=== PATIENT | female | born 1980 | race Caucasian/White ===

== ENCOUNTER 2017-03-17 10:20 | Emergency (ER) | payer MEDICARE, MEDICAID, SELFPAY ==
[2017-03-17 10:22] VITALS: BP 160/119; PULSE 79; RESP 16; TEMP 36.8; O2SAT 97; BMI 52.6
--- NOTE | 2017-03-17 10:41 | ED.DCSUM_ITS ---
- ER Visit Summary Date of Service: 03/17/17 Chief Complaint: Upper respiratory infection History of Present Illness: The patient is a 36 F with approximately 4-5 days of rhinorrhea, dry cough, and sore throat. No fever, chills, body aches, or neck pain. No rash. She went to the urgent care on the first day of symptoms and was put on amoxicillin for sinus infection and states that her symptoms have not resolved so she wanted to be rechecked. Physical Examination: Vitals are within normal limits except for mildly elevated blood pressure. She has swollen turbinates bilaterally. Clear secretions of both nares. No sinus tenderness, crepitus, or facial swelling/ redness. Throat looks normal. TMs look normal. Neck is supple. No lymphadenopathy. No meningeal findings. Lungs are clear bilaterally with good air movement. No rash. No petechiae. Test Results: None performed Emergency Department Course and Treatment: I suspect she has a viral cause for her illness. She has no body aches or myalgias and she is outside of the window to benefit from Tamiflu anyway so I do not feel confirmatory influenza testing is indicated. She was instructed on supportive care treatment such as anti-inflammatory medication, rest, and plenty of fluids. Her lungs are clear and her pulse ox is 100% so I do not feel she needs a chest x-ray. She will discontinue the amoxicillin as I suspect she does not need it and it could be making her worse. She will follow-up closely with her doctor and return if worse. Treatment Plan: Fluids, rest, follow-up Disposition: Home in stable condition Impression: Initial encounter upper respiratory infection, suspect viral cause This note was generated with [employer] dictation software. It may contain incorrect words, spelling, and punctuation that were not noted in review of the chart prior to signing ED Disposition - Plan for ED Patient: Chief Complaint: Cold Sx Instructions: ED Upper Resp Infec No Abx Tx Referrals: Brodie Fernandes MD [Primary Care Provider] -
[2017-03-17 11:04] VITALS: BP 162/85; PULSE 72; RESP 16; O2SAT 98
== END 2017-03-17 11:04 | disposition home or self-care (01) ==
PROVIDERS: Emergency Provider Emergency Medicine; Family Provider Internal Medicine; PCP Internal Medicine
DX: J06.9 Acute upper respiratory infection, unspecified (principal); E03.9 Hypothyroidism, unspecified; F32.9 Major depressive disorder, single episode, unspecified; F41.9 Anxiety disorder, unspecified; Z79.899 Other long term (current) drug therapy
CPT/HCPCS: 99282

== ENCOUNTER → 2017-03-28 13:41 | Outpatient (CLI) | payer MEDICARE, MEDICAID, SELFPAY ==
--- NOTE | 2017-03-28 13:43 | RAD_ITS ---
STUDY: X-RAY - RIGHT FOOT CLINICAL: Dropped a vase on the top of the foot. TECHNIQUE: 3 view(s) of the foot. COMPARISON: None. FINDINGS: There are very small posterior and plantar calcaneal enthesophytes. Normal visualized subtalar, talonavicular, calcaneocuboid, tarsal and tarsometatarsal articulations. Normal metatarsi. Normal metatarsophalangeal joint of the great toe. Normal tibial and fibular sesamoid bones. Normal interphalangeal joint of the great toe. Normal phalanges of the great toe. Normal second through fifth metatarsophalangeal joints. Normal interphalangeal joints and phalanges of the lesser toes. There are small ossicles adjacent to the medial and lateral malleoli. There is a small accessory navicular. RAD/Foot min 3 Views IMPRESSION: No demonstrated fracture. Electronically Signed: Raghavendra Camops MD at 9:10 EST Tel , Service support ,
== END ==
PROVIDERS: Family Provider Internal Medicine; PCP Internal Medicine; Visit Provider Physician Assistant Medical
DX: S90.31XA Contusion of right foot, initial encounter (principal); W22.8XXA Striking against or struck by other objects, initial encounter
CPT/HCPCS: 73630

== ENCOUNTER 2017-08-24 10:56 | Emergency (ER) | payer OTHER, SELFPAY ==
[2017-08-24 10:58] VITALS: BP 158/108; PULSE 83; RESP 16; TEMP 37; O2SAT 98; BMI 48.0
--- NOTE | 2017-08-24 11:26 | RAD_ITS ---
STUDY: X-RAY - RIGHT TIBIA AND FIBULA REASON FOR EXAM: Right leg pain, fall. TECHNIQUE: 2 view(s) of the tibia and fibula were obtained. COMPARISON: None. FINDINGS: Normal visualized tibia. Normal visualized fibula. There is mild anterior soft tissue swelling of the proximal lower leg. RAD/Tibia & Fibula 2 Views IMPRESSION: Mild soft tissue swelling. No demonstrated fracture. Electronically Signed: Raghavendra Campos MD at 12:43 EDT Tel , Service support ,
--- NOTE | 2017-08-24 11:29 | ED.VISSUMM ---
- ER Visit Summary Date of Service: 08/24/17 Chief Complaint: Then fell at work complaint right knee and lower leg pain History of Present Illness: The patient is a 37 F was at work today at the [employer] tripped over something and fell landing on her right knee and complaining of right knee and lower leg pain. Has had a prior knee arthroscopy. Has had prior ankle surgery for fractured ankle. Denies other injuries. Did not hit her head. No LOC. She is not on blood thinners. This is going to be Worker's Comp. Physical Examination: Vital signs stable and afebrile. H EENT exam is atraumatic. Pupils round reactive light. No signs of trauma to her face skull. C-spine nontender normal range of motion her neck. Trachea midline. Lungs clear to auscultation bilaterally. Heart regular rhythm no murmur. Abdomen soft nontender nondistended no giving or masses. She is moving all 4 extremities. The neurovascular intact. Her right anterior knee has an abrasion to knee. No gross bony deformity. Right hip nontender. She some abrasions to the right lower leg. There is no deformity or significant tenderness of the right ankle. Dorsi plantar flexion is intact. DP pulses intact. Right foot is nontender neurovascular intact. Left lower extremity unremarkable. Upper extremities unremarkable normal range of motion noted only. Back exam nontender. Neurologic exam normal. GCS of 15. Test Results: Three-view x-ray of the right knee shows no acute abnormality. Chronic calcification in the posterior tibia. Two-view x-ray of the right tib-fib shows no acute abnormality. Both were read by the radiologist and reviewed by me. Emergency Department Course and Treatment: Patient will be obtained. Treatment Plan: Patient doing well repeat exam at 1254. Disposition: Discharge Impression: Acute mechanical fall Right knee contusion and abrasion Worker's comp injury This note was generated with [employer] dictation software. It may contain incorrect words, spelling, and punctuation that were not noted in review of the chart prior to signing ED Disposition - Plan for ED Patient: Chief Complaint: Fall Referrals: Brodie Fernandes MD [Primary Care Provider] -
--- NOTE | 2017-08-24 12:00 | RAD_ITS ---
STUDY: X-RAY - RIGHT KNEE REASON FOR EXAM: Right knee pain, fall. TECHNIQUE: 3 view(s) of the knee. COMPARISON: None. FINDINGS: Normal visualized distal femur. Normal visualized proximal tibia and fibula. Normal proximal tibiofibular articulation. Normal medial femorotibial compartment. Normal lateral femorotibial compartment. Normal patellofemoral articulation. There is a posterior intra-articular body. There is mild anterior soft tissue swelling. RAD/Knee 3 Views IMPRESSION: Posterior intra-articular body. Mild anterior soft tissue swelling. No demonstrated fracture. Electronically Signed: Raghavendra Campos MD at 12:44 EDT Tel , Service support ,
--- NOTE | 2017-08-24 12:55 | ED.DEP ---
ED Disposition - Plan for ED Patient: Disposition: Home or Assisted Living Chief Complaint: Fall Instructions: ED Mechanical Fall, ED Contusion Lower Ext Referrals: [facility] [GROUP OF PHYSICIANS] - 1 Week if not improving Additional Instructions: Ice to knee. Motrin for pain and swelling. Increase activity as tolerated. No heavy lifting for the next 3 days. Follow-up with [facility] if not improving.
[2017-08-24 13:21] VITALS: BP 102/74; PULSE 79; RESP 18
== END 2017-08-24 13:22 | disposition home or self-care (01) ==
PROVIDERS: Emergency Provider Emergency Medicine; Family Provider Internal Medicine; PCP Internal Medicine
DX: S80.01XA Contusion of right knee, initial encounter (principal); S80.211A Abrasion, right knee, initial encounter; W18.09XA Striking against other object with subsequent fall, initial encounter; Y93.9 Activity, unspecified; Y92.89 Other specified places as the place of occurrence of the external cause; Y99.0 Civilian activity done for income or pay; E03.9 Hypothyroidism, unspecified; F32.9 Major depressive disorder, single episode, unspecified; F41.9 Anxiety disorder, unspecified; Z79.899 Other long term (current) drug therapy
CPT/HCPCS: 73562; 73590; 99282

== ENCOUNTER → 2017-10-01 06:28 | Outpatient (CLI) | payer OTHER, SELFPAY | PROVIDERS: Family Provider Internal Medicine; PCP Internal Medicine; Visit Provider Physician Assistant | DX: S80.01XA Contusion of right knee, initial encounter (principal); W19.XXXA Unspecified fall, initial encounter; Y99.0 Civilian activity done for income or pay | CPT/HCPCS: 73721 ==

== ENCOUNTER 2018-06-05 09:15 | Emergency (ER) | payer MEDICARE, MEDICAID, SELFPAY ==
[2018-05-27 08:33] VITALS: BMI 52.6
[2018-06-05 09:17] VITALS: BP 141/77; PULSE 88; RESP 17; TEMP 36.6; O2SAT 100; BMI 53.4
--- NOTE | 2018-06-05 10:02 | ED.VISSUMM ---
- ER Visit Summary Date of Service: 06/05/18 Chief Complaint: Nausea and vomiting History of Present Illness: The patient is a 38 F currently 6 weeks she is AB 0. Also has a history of hypothyroidism, anemia and anxiety and depression. Patient states she is had nausea and vomiting for approximately a week. No dysuria. No abdominal pain. No vaginal bleeding. No fever. Physical Examination: Well-appearing middle-age female. Vital signs are stable and afebrile. She does not look septic or toxic. She is in no distress. HEENT exam is unremarkable. Neck nontender no lymphadenopathy. Lungs clear to auscultation bilaterally. Heart regular rate and rhythm no murmur rate about 85. Abdomen morbidly obese but soft. Nontender normal bowel sounds no peritoneal signs. Patient is moving all 4 extremities. They are neurovascularly intact. Calves are nontender without edema. Neurologically she is awake alert focal motor deficits. Test Results: Patient has a history of anemia. Her H&H shows hemoglobin 10.6 which is actually better than her baseline. Emergency Department Course and Treatment: Treated with IV fluids and IV Zofran. Patient has a med port and it was accessed for this. Patient also received Phenergan for nausea which is improving. She was able to hold down some p.o. fluids. On repeat exams at noon and 1315 p.m. she is doing well. She understands there is nothing to be admitted to the hospital for at this time. She needs to increase her fluid intake. And advance her diet slowly. Treatment Plan: Home prescription of Zofran. Follow-up with her TILE MOLDER HAND. Disposition: Discharge Impression: Acute nausea and vomiting First trimester History of chronic anemia This note was generated with [employer] dictation software. It may contain incorrect words, spelling, and punctuation that were not noted in review of the chart prior to signing ED Disposition - Plan for ED Patient: Referrals: Brodie Fernandes MD [Primary Care Provider] -
--- NOTE | 2018-06-05 10:05 | ED.DCSUM_ITS ---
- ER Visit Summary Date of Service: 06/05/18 Chief Complaint: Nausea and vomiting History of Present Illness: The patient is a 38 F currently 6 weeks she is AB 0. Also has a history of hypothyroidism, anemia and anxiety and depression. Patient states she is had nausea and vomiting for approximately a week. No dysuria. No abdominal pain. No vaginal bleeding. No fever. Physical Examination: Well-appearing middle-age female. Vital signs are stable and afebrile. She does not look septic or toxic. She is in no distress. HEENT exam is unremarkable. Neck nontender no lymphadenopathy. Lungs clear to auscultation bilaterally. Heart regular rate and rhythm no murmur rate about 85. Abdomen morbidly obese but soft. Nontender normal bowel sounds no peritoneal signs. Patient is moving all 4 extremities. They are neurovascularly intact. Calves are nontender without edema. Neurologically she is awake alert focal motor deficits. Test Results: Patient has a history of anemia. Her H&H shows hemoglobin 10.6 which is actually better than her baseline. Emergency Department Course and Treatment: Treated with IV fluids and IV Zofran. Patient has a med port and it was accessed for this. Patient also received Phenergan for nausea which is improving. She was able to hold down some p.o. fluids. On repeat exams at noon and 1315 p.m. she is doing well. She understands there is nothing to be admitted to the hospital for at this time. She needs to increase her fluid intake. And advance her diet slowly. Treatment Plan: Home prescription of Zofran. Follow-up with her COMPANY TRUCK DRIVER. Disposition: Discharge Impression: Acute nausea and vomiting First trimester History of chronic anemia This note was generated with [employer] dictation software. It may contain incorrect words, spelling, and punctuation that were not noted in review of the chart prior to signing ED Disposition - Plan for ED Patient: Referrals: Brodie Fernandes MD [Primary Care Provider] -
[2018-06-05] MEDS: 0.9% Normal Saline 1,000 ML 999 ML IV (10:31)
[2018-06-05] MEDS: Ondansetron 4 MG/2 ML Vial IV (10:31)
[2018-06-05 11:23] VITALS: BP 127/72; PULSE 74; RESP 18; O2SAT 99
--- NOTE | 2018-06-05 11:43 | NURSING ---
NEED A PURPLE, CLOTTED
[2018-06-05 12:15] LABS: Hematocrit 32.4 % (37-47); Hemoglobin 10.6 g/dl (12.0-15.0)
[2018-06-05] MEDS: proMETHazine 25 MG/ML Syringe 12.5 MG IV (12:30)
[2018-06-05 13:10] VITALS: BP 139/70; PULSE 81; RESP 16; O2SAT 96
--- NOTE | 2018-06-05 13:16 | ED.DEP ---
ED Disposition - Plan for ED Patient: Disposition: Home or Assisted Living Instructions: ED Dizziness [facility] Referrals: Adwoa Hopper MD [STAFF PHYSICIAN] - 3-5 Days Additional Instructions: Use your Zofran for nausea. Plenty of fluids and rest. Increase her diet slowly. Follow-up with your MANUFACTURING DEVELOPMENT ENGINEER.
--- NOTE | 2018-06-05 13:21 | DCINST.ED_ITS ---
ED Disposition - Plan for ED Patient: Disposition: Home or Assisted Living Instructions: ED Dizziness [facility] Referrals: Adwoa Hopper MD [STAFF PHYSICIAN] - 3-5 Days Additional Instructions: Use your Zofran for nausea. Plenty of fluids and rest. Increase her diet slowly. Follow-up with your HOSPITAL ADMISSIONS OFFICER.
== END 2018-06-05 13:48 | disposition home or self-care (01) ==
PROVIDERS: Emergency Provider Emergency Medicine; Family Provider Internal Medicine; PCP Internal Medicine
DX: O21.9 Vomiting of pregnancy, unspecified (principal); O99.011 Anemia complicating pregnancy, first trimester; D64.9 Anemia, unspecified; O99.341 Other mental disorders complicating pregnancy, first trimester; F32.9 Major depressive disorder, single episode, unspecified; F41.9 Anxiety disorder, unspecified; Z3A.01 Less than 8 weeks gestation of pregnancy
CPT/HCPCS: 85014; 85018; 96361; 96374; 96375; 99282; J7030; J7040; A4216; J2405

== ENCOUNTER → 2018-07-02 12:11 | Outpatient (CLI) | payer MEDICARE, MEDICAID, SELFPAY ==
[2018-06-26 16:23] VITALS: BMI 53.4
[2018-07-02 13:36] LABS: Absolute Lymphocyte Count 1.27 X10^3/ul (0.83-4.51); Absolute Neutrophil Count 5.1 X10^3/uL (2.0-7.7); Basophil# 0.02 X10^3/uL; Basophil% 0.3 % (0-1); Eosinophil# 0.05 X10^3/uL; Eosinophils% 0.7 % (0-5); Hematocrit 32.8 % (37-47); Hemoglobin 10.5 g/dl (12.0-15.0); Lymphocyte # 1.27 X10^3/ul (4.0); Lymphocyte % 18.3 % (19-41); Mean Corpuscular Hgb 26.9 pg (27.0-32.0); Mean Corpuscular Volume 84.1 fL (81-99); Mean Platelet Vol. 9.3 fl (6.2-12.0); Monocyte# 0.46 X10^3/uL; Monocyte% 6.6 % (0-10); Neutrophil # 5.13 X10^3/uL (2.7-7.7); POSITIVE COUNT NO; POSITIVE DIFFERENTIAL NO; POSITIVE MORPHOLOGY NO; Platelet Count 287 K/mm3 (150-450); RBC Distribution Width CV 14.9 % (11.6-14.6); RBC Distribution Width SD 45.5 fl (35.1-43.9); White Blood Count 6.9 K/mm3 (4.4-11.0)
[2018-07-02 15:28] LABS: HIV - WCH Non-Reactive (Nonreactive)
[2018-07-03 12:12] LABS: HEPATITIS B SURFACE AG Negative (Negative)
[2018-07-05 02:05] LABS: Rapid Plasmin Reagin (RPR) NONREACTIVE (NONREACTIVE)
== END ==
PROVIDERS: Family Provider Internal Medicine; PCP Internal Medicine; Referring Provider Obstetrics & Gynecology; Visit Provider Obstetrics & Gynecology
DX: O09.529 Supervision of elderly multigravida, unspecified trimester (principal)
CPT/HCPCS: 85025; 86592; 86703; 86762; 86850; 86900; 87340; A4216

== ENCOUNTER 2018-09-29 14:15 | Outpatient (CLI) | payer MEDICARE, MEDICAID, SELFPAY ==
[2018-09-25 09:11] VITALS: BMI 53.4
[2018-09-29 15:20] LABS: Color, Urine Yellow (Yellow); Glucose, Dipstick Normal (Normal); Ketone-Dipstick 15 mg/dl (Negative); Leukocyte Esterase-Dipstick Negative /ul (Negative); Nitrite-Dipstick Negative (Negative); Occult Blood-Urine Negative /ul (Negative); Protein-Dipstick Negative (Negative); Urine Bilirubin Dipstick Negative (Negative); Urine Clarity Clear (Clear); Urine Urobilinogen 1 mg/dl (Normal)
[2018-09-29 16:02] LABS: Absolute Lymphocyte Count 1.85 X10^3/uL (0.83-4.51); Absolute Neutrophil Count 8.8 X10^3/uL (2.0-7.7); Basophil# 0.03 X10^3/uL; Basophil% 0.3 % (0-1); Eosinophil# 0.07 X10^3/uL; Eosinophils% 0.6 % (0-5); Hematocrit 30.2 % (37-47); Hemoglobin 9.9 g/dL (12.0-15.0); Lymphocyte # 1.85 X10^3/ul (4.0); Mean Corp Hgb Conc 32.8 g/dL (32-36); Mean Corpuscular Hgb 28.6 pg (27.0-32.0); Mean Corpuscular Volume 87.3 fL (81-99); Mean Platelet Vol. 9.6 fl (6.2-12.0); Monocyte# 0.77 X10^3/uL; Monocyte% 6.6 % (0-10); NRBC Flagged by Analyzer 0 % (0-5); Neutrophil # 8.81 X10^3/uL (2.7-7.7); Neutrophil % 76.1 % (47-70); Platelet Count 274 K/mm3 (150-450); RBC Distribution Width SD 50.7 fl (35.1-43.9); Red Blood Count 3.46 M/mm3 (4.2-5.4); White Blood Count 11.6 K/mm3 (4.4-11.0)
[2018-09-29 16:03] VITALS: BMI 53.6
[2018-09-29 16:22] LABS: ALB/GLOB Ratio 0.6 RATIO (0.9-2.4); AST(SGOT) 19 U/L (15-37); Alanine Aminotransfer ALT/SGPT 19 U/L (13-56); Albumin, Serum 2.4 g/dL (3.2-5.0); Alkaline Phosphatase 79 U/L (45-117); Anion Gap 5 (5-15); BUN 8 mg/dL (7-18); BUN/Creat Ratio 21.4 RATIO (10-20); Calcium,Total 8.4 mg/dL (8.5-10.1); Chloride 111 mmol/L (98-107); Creatinine, Serum 0.37 mg/dL (0.55-1.02); EST Glomerular Filtration Rate 203 mL/min (>60); Est Glom Filt Rate - Afr Amer 246 mL/min (>60); Estimated Creatinine Clearance 174.53 ml/min; Globulin 3.7 g/dL (2.2-4.2); Glucose 77 mg/dL (74-106); Potassium 4.1 mmol/L (3.5-5.1); Protein, Total 6.1 g/dL (6.4-8.2); Sodium Level 140 mmol/L (136-145)
--- NOTE | 2018-10-01 04:47 | OB.TRI.PN_ITS ---
Progress Notes Date of Service: 09/29/18 Progress Note: Patient seen for abdominal pain and Laboratory evaluation within normal limits and heart tones reassuring. No contractions cervix closed Abdominal pain and reassuring status normal laboratory evaluation DC home labor precautions. Laboratory Studies: Laboratory Tests 09/29/18 09/29/18 09/29/18 Range/Units 15:50 15:50 14:50 WBC 11.6 H (4.4-11.0) K/mm3 RBC 3.46 L (4.2-5.4) M/mm3 Hgb 9.9 L (12.0-15.0) g/dL Hct 30.2 L (37-47) % MCV 87.3 (81-99) fL MCH 28.6 (27.0-32.0) pg MCHC 32.8 (32-36) g/dL RDW Std Deviation 50.7 H (35.1-43.9) fl RDW Coeff of Penny 16.0 H (11.6-14.6) % Plt Count 274 (150-450) K/mm3 MPV 9.6 (6.2-12.0) fl Immature Gran % (Auto) 0.400 (0.0-0.9) % Neut % (Auto) 76.1 H (47-70) % Lymph % (Auto) 16.0 L (19-41) % [place] % (Auto) 6.6 (0-10) % Eos % (Auto) 0.6 (0-5) % Baso % (Auto) 0.3 (0-1) % Absolute Neuts (auto) 8.8 H (2.0-7.7) X10^3/uL Absolute Lymphs (auto) 1.85 (0.83-4.51) X10^3/uL Nucleated RBC % 0 (0-5) % Sodium 140 (136-145) mmol/L Potassium 4.1 (3.5-5.1) mmol/L Chloride 111 H (98-107) mmol/L Carbon Dioxide 24.0 (21.0-32.0) mmol/L Anion Gap 5 (5-15) BUN 8 (7-18) mg/dL Creatinine 0.37 L (0.55-1.02) mg/dL Estim Creat Clear Calc 174.53 ml/min Est GFR (MDRD) Af Amer 246 (>60) mL/min Est GFR (MDRD) Non-Af 203 (>60) mL/min BUN/Creatinine Ratio 21.4 H (10-20) RATIO Glucose 77 (74-106) mg/dL Calcium 8.4 L (8.5-10.1) mg/dL Total Bilirubin 0.30 (0.20-1.00) mg/dL AST 19 (15-37) U/L ALT 19 (13-56) U/L Alkaline Phosphatase 79 (45-117) U/L Total Protein 6.1 L (6.4-8.2) g/dL Albumin 2.4 L (3.2-5.0) g/dL Globulin 3.7 (2.2-4.2) g/dL Albumin/Globulin Ratio 0.6 L (0.9-2.4) RATIO Urine Color Yellow (Yellow) Urine Clarity Clear (Clear) Urine pH 6.0 (5.0 - 8.0) Ur Specific [place] 1.010 (1.002-1.030) Urine Protein Negative (Negative) mg/dl Urine Glucose (UA) Normal (Normal) mg/dl Urine Ketones 15 H (Negative) mg/dl Urine Occult Blood Negative (Negative) /ul Urine Nitrite Negative (Negative) Urine Bilirubin Negative (Negative) mg/dL Urine Urobilinogen 1 H (Normal) mg/dl Ur Leukocyte Esterase Negative (Negative) /ul Multi Select Codes - Urinary/Genital Urinary/Genital CPT Codes: Other Procedure See Report - no charge
== END 2018-09-29 17:05 | disposition home or self-care (01) ==
LOC: WPOUT 14:24 → OBT 14:24
PROVIDERS: Family Provider Internal Medicine; PCP Internal Medicine; Referring Provider Obstetrics & Gynecology; Visit Provider Obstetrics & Gynecology
DX: O26.899 Other specified pregnancy related conditions, unspecified trimester (principal); R10.9 Unspecified abdominal pain; Z3A.00 Weeks of gestation of pregnancy not specified
CPT/HCPCS: 36415; 59025; 59050; 80053; 81002; 85025; 87086; 87088; 99218; G0378

== ENCOUNTER → 2018-10-02 13:18 | Outpatient (CLI) | payer MEDICARE, MEDICAID, SELFPAY ==
[2018-10-01 16:17] VITALS: BMI 54.7
[2018-10-02 14:47] LABS: Vitamin B12 105 pg/mL (211-911)
[2018-10-02 15:09] LABS: Iron 33 ug/dL (50-170); Iron Binding Capacity,Total 455 ug/dL (250-450)
[2018-10-04 13:28] LABS: Transferrin 371 mg/dL (200-370)
== END ==
PROVIDERS: Family Provider Internal Medicine; PCP Internal Medicine; Referring Provider Obstetrics & Gynecology; Visit Provider Obstetrics & Gynecology
DX: D53.9 Nutritional anemia, unspecified (principal)
CPT/HCPCS: 36591; 82607; 82746; 83540; 83550; 84466; A4216

== ENCOUNTER → 2018-10-08 12:57 | Outpatient (CLI) | payer MEDICARE, MEDICAID, SELFPAY ==
[2018-10-07 10:46] VITALS: BMI 54.7
[2018-10-08 13:27] VITALS: BP 140/69; PULSE 94; RESP 16; TEMP 36.4; O2SAT 96; BMI 54.6
== END ==
PROVIDERS: Family Provider Internal Medicine; PCP Internal Medicine; Referring Provider Obstetrics & Gynecology; Visit Provider Obstetrics & Gynecology
DX: D50.8 Other iron deficiency anemias (principal); D53.9 Nutritional anemia, unspecified; K91.2 Postsurgical malabsorption, not elsewhere classified
CPT/HCPCS: 96365; 96366; J1756; J7050; A4216

== ENCOUNTER → 2018-10-18 13:24 | Outpatient (CLI) | payer MEDICARE, MEDICAID, SELFPAY ==
[2018-10-08 13:27] VITALS: BMI 54.6
[2018-10-18 13:32] VITALS: BP 117/62; PULSE 86; RESP 16; TEMP 36.1; O2SAT 93; BMI 54.6
== END ==
PROVIDERS: Family Provider Internal Medicine; PCP Internal Medicine; Referring Provider Obstetrics & Gynecology; Visit Provider Obstetrics & Gynecology
DX: D50.8 Other iron deficiency anemias (principal); D53.9 Nutritional anemia, unspecified; K91.2 Postsurgical malabsorption, not elsewhere classified
CPT/HCPCS: 96365; 96366; J1756; J7050; A4216

== ENCOUNTER → 2018-10-25 12:57 | Outpatient (CLI) | payer MEDICARE, MEDICAID, SELFPAY ==
[2018-10-18 13:32] VITALS: BMI 54.6
[2018-10-22 14:34] VITALS: BMI 25.2
[2018-10-25 13:18] VITALS: BP 122/66; PULSE 88; RESP 16; TEMP 36.7; O2SAT 97; BMI 51.8
[2018-10-25 13:27] LABS: Absolute Lymphocyte Count 1.48 X10^3/uL (0.83-4.51); Absolute Neutrophil Count 6.4 X10^3/uL (2.0-7.7); Basophil# 0.03 X10^3/uL; Basophil% 0.4 % (0-1); Eosinophil# 0.07 X10^3/uL; Eosinophils% 0.8 % (0-5); Hematocrit 32.3 % (37-47); Hemoglobin 10.4 g/dL (12.0-15.0); Lymphocyte # 1.48 X10^3/ul (4.0); Lymphocyte % 17.4 % (19-41); Mean Corp Hgb Conc 32.2 g/dL (32-36); Mean Corpuscular Hgb 29.6 pg (27.0-32.0); Mean Platelet Vol. 9.2 fl (6.2-12.0); Monocyte# 0.49 X10^3/uL; Monocyte% 5.8 % (0-10); NRBC Flagged by Analyzer 0 % (0-5); Neutrophil # 6.36 X10^3/uL (2.7-7.7); Neutrophil % 74.9 % (47-70); Platelet Count 253 K/mm3 (150-450); RBC Distribution Width CV 16.8 % (11.6-14.6); RBC Distribution Width SD 55.3 fl (35.1-43.9); Red Blood Count 3.51 M/mm3 (4.2-5.4); White Blood Count 8.5 K/mm3 (4.4-11.0)
== END ==
PROVIDERS: Family Provider Internal Medicine; PCP Internal Medicine; Referring Provider Obstetrics & Gynecology; Visit Provider Obstetrics & Gynecology
DX: D50.8 Other iron deficiency anemias (principal); D53.9 Nutritional anemia, unspecified; K91.2 Postsurgical malabsorption, not elsewhere classified
CPT/HCPCS: 96365; 96366; 85025; J1756; J7050; A4216

== ENCOUNTER → 2018-11-05 17:56 | Outpatient (CLI) | payer MEDICARE, MEDICAID, SELFPAY ==
[2018-11-05 13:00] VITALS: BMI 55.3
[2018-11-05 18:48] LABS: Amphetamine Urine VISTA NEGATIVE (<1000 ng/mL); Barbiturate Urine VISTA NEGATIVE (< 200 ng/mL); Benzodiazepine Urine VISTA NEGATIVE (< 200 ng/mL); Cocaine Urine VISTA NEGATIVE (< 300 ng/mL); Ecstacy Urine VISTA NEGATIVE (< 500 ng/mL); Methadone Urine VISTA NEGATIVE (< 300 ng/mL); PCP Urine VISTA NEGATIVE (< 25 ng/mL); THC Urine VISTA NEGATIVE (< 50 ng/mL); Vista UDS pH Range 6
== END ==
PROVIDERS: Family Provider Internal Medicine; PCP Internal Medicine; Visit Provider Obstetrics & Gynecology
DX: F11.11 Opioid abuse, in remission (principal)
CPT/HCPCS: 80307

== ENCOUNTER → 2018-11-14 11:23 | Outpatient (CLI) | payer MEDICARE, MEDICAID, SELFPAY ==
[2018-11-14 10:23] VITALS: BMI 55.3
--- NOTE | 2018-11-14 11:25 | US_ITS ---
STUDY: OBSTETRICAL ULTRASOUND - BIOPHYSICAL PROFILE REASON FOR EXAM: Female, 38 years old well-being. LMP: April 19, 2018. PRIOR ULTRASOUND: None. TECHNIQUE: Transabdominal TECHNICAL QUALITY: Adequate. FINDINGS: There is a single intrauterine fetus. The fetus is in a breech presentation. There is demonstrated cardiac activity with a heart rate of 167 bpm. There is a normal amniotic fluid volume. The largest amniotic fluid pocket measures 3.1 cm. The amniotic fluid index (JOANA) is 10.86 cm. The placenta is anterior in location and is not low lying. There are Grade 0 placental changes. Age by LMP: 29 weeks, 6 days. TY by LMP: January 24, 2019. BIOPHYSICAL PROFILE: Breathing Movements (FBM): 2 Gross Body Movements (GBM): 2 Tone (FT): 2 Amniotic Fluid Volume (AFV): 2 TOTAL SCORE: / US/Biophysical Prof W/O Non Stres IMPRESSION: Normal biophysical profile of 09/19. Electronically Signed: Isaac Oliva, at 15:37 EDT , Service support ,
== END ==
PROVIDERS: Family Provider Internal Medicine; PCP Internal Medicine; Referring Provider Obstetrics & Gynecology; Visit Provider Obstetrics & Gynecology
DX: O36.8190 Decreased fetal movements, unspecified trimester, not applicable or unspecified (principal); O32.1XX0 Maternal care for breech presentation, not applicable or unspecified; Z3A.29 29 weeks gestation of pregnancy
CPT/HCPCS: 76819

== ENCOUNTER → 2018-11-19 13:29 | Outpatient (CLI) | payer MEDICARE, MEDICAID, SELFPAY ==
[2018-11-19 13:05] VITALS: BMI 55.3
[2018-11-19 13:58] LABS: Absolute Lymphocyte Count 1.47 X10^3/uL (0.83-4.51); Absolute Neutrophil Count 7.8 X10^3/uL (2.0-7.7); Basophil# 0.04 X10^3/uL; Basophil% 0.4 % (0-1); Hematocrit 33.2 % (37-47); Hemoglobin 11.1 g/dL (12.0-15.0); Lymphocyte # 1.47 X10^3/ul (4.0); Lymphocyte % 14.5 % (19-41); Mean Corp Hgb Conc 33.4 g/dL (32-36); Mean Corpuscular Hgb 30.3 pg (27.0-32.0); Mean Corpuscular Volume 90.7 fL (81-99); Monocyte# 0.65 X10^3/uL; Monocyte% 6.4 % (0-10); NRBC Flagged by Analyzer 0 % (0-5); Neutrophil # 7.82 X10^3/uL (2.7-7.7); Neutrophil % 76.8 % (47-70); Platelet Count 211 K/mm3 (150-450); RBC Distribution Width CV 15.8 % (11.6-14.6); RBC Distribution Width SD 51.8 fl (35.1-43.9); Red Blood Count 3.66 M/mm3 (4.2-5.4); White Blood Count 10.2 K/mm3 (4.4-11.0)
[2018-11-19 14:26] LABS: Hemoglobin A1c 4.5 % (4.2-6.3); T4 Free Direct 0.87 ng/dL (0.76-1.46); Thyroid Stim Hormone (TSH) 6.54 uIU/mL (0.358-3.74)
== END ==
PROVIDERS: Family Provider Internal Medicine; PCP Internal Medicine; Visit Provider Nurse Practitioner Women's Health
DX: D50.8 Other iron deficiency anemias (principal); E03.9 Hypothyroidism, unspecified; E66.01 Morbid (severe) obesity due to excess calories
CPT/HCPCS: 36591; 83036; 84439; 84443; 85025; A4216

== ENCOUNTER → 2018-11-27 15:34 | Outpatient (CLI) | payer MEDICARE, MEDICAID, SELFPAY ==
[2018-11-27 13:38] VITALS: BMI 51.8
[2018-11-27 18:13] LABS: Amphetamine Urine VISTA NEGATIVE (<1000 ng/mL); Barbiturate Urine VISTA NEGATIVE (< 200 ng/mL); Benzodiazepine Urine VISTA NEGATIVE (< 200 ng/mL); Cocaine Urine VISTA NEGATIVE (< 300 ng/mL); Ecstacy Urine VISTA NEGATIVE (< 500 ng/mL); Methadone Urine VISTA NEGATIVE (< 300 ng/mL); PCP Urine VISTA NEGATIVE (< 25 ng/mL); THC Urine VISTA NEGATIVE (< 50 ng/mL); Vista UDS pH Range 6
== END ==
PROVIDERS: Family Provider Internal Medicine; PCP Internal Medicine; Referring Provider Nurse Practitioner Women's Health; Visit Provider Nurse Practitioner Women's Health
DX: F11.11 Opioid abuse, in remission (principal)
CPT/HCPCS: 80307

== ENCOUNTER 2018-12-12 14:01 | Outpatient (CLI) | payer MEDICARE, MEDICAID, SELFPAY ==
[2018-12-12 13:49] VITALS: BMI 51.8
[2018-12-12 14:16] VITALS: BMI 55.3
--- NOTE | 2018-12-14 01:07 | OB.TRI.PN ---
Progress Notes Date of Service: 12/11/18 Progress Note: FHT: 140n Moderate variability reactive no decelerations category I tracing [place]: no Contractions nst decreased fm reactive Multi Select Codes - Urinary/Genital Urinary/Genital CPT Codes: 61622-32 non-stress test Interp
== END 2018-12-12 14:40 | disposition home or self-care (01) ==
PROVIDERS: Family Provider Internal Medicine; PCP Internal Medicine; Referring Provider Obstetrics & Gynecology; Visit Provider Obstetrics & Gynecology
DX: O36.8190 Decreased fetal movements, unspecified trimester, not applicable or unspecified (principal); Z3A.00 Weeks of gestation of pregnancy not specified
CPT/HCPCS: 59025; 59050; 99218; G0378

== ENCOUNTER 2018-12-13 11:05 | Outpatient (CLI) | payer MEDICARE, MEDICAID, SELFPAY ==
[2018-12-12 14:16] VITALS: BMI 55.3
[2018-12-13 11:33] VITALS: BMI 54.8
--- NOTE | 2018-12-14 01:10 | OB.TRI.PN ---
Progress Notes Date of Service: 12/13/18 Progress Note: decreased fm- nst reactive dc home report visit no charge Multi Select Codes - Urinary/Genital Urinary/Genital CPT Codes: Other Procedure See Report - no charge
== END 2018-12-13 12:20 | disposition home or self-care (01) ==
LOC: WPOUT 11:17 → OBT 11:17
PROVIDERS: Family Provider Internal Medicine; PCP Internal Medicine; Referring Provider Obstetrics & Gynecology; Visit Provider Obstetrics & Gynecology
DX: O36.8190 Decreased fetal movements, unspecified trimester, not applicable or unspecified (principal); Z3A.00 Weeks of gestation of pregnancy not specified
CPT/HCPCS: 59025; 59050; 99218; G0378

== ENCOUNTER → 2018-12-25 16:48 | Outpatient (CLI) | payer MEDICARE, MEDICAID, SELFPAY ==
[2018-12-25 10:33] VITALS: BMI 54.8
== END ==
PROVIDERS: Family Provider Internal Medicine; PCP Internal Medicine; Referring Provider Nurse Practitioner Women's Health; Visit Provider Nurse Practitioner Women's Health
DX: N39.0 Urinary tract infection, site not specified (principal)
CPT/HCPCS: 87086; 87088

== ENCOUNTER → 2019-01-02 17:15 | Outpatient (CLI) | payer MEDICARE, MEDICAID, SELFPAY ==
[2019-01-02 13:48] VITALS: BMI 54.8
== END ==
PROVIDERS: Family Provider Internal Medicine; PCP Internal Medicine; Referring Provider Obstetrics & Gynecology; Visit Provider Obstetrics & Gynecology
DX: O09.529 Supervision of elderly multigravida, unspecified trimester (principal); Z3A.00 Weeks of gestation of pregnancy not specified
CPT/HCPCS: 87081

== ENCOUNTER 2019-01-02 23:35 | Outpatient (CLI) | payer MEDICARE, MEDICAID, SELFPAY ==
[2019-01-02 13:48] VITALS: BMI 54.8
[2019-01-03 00:20] VITALS: BMI 55.7
[2019-01-03 00:35] LABS: ROM Internal Control Test YES-OK TO RESULT pt. (Internal QC); ROM Patient Test Negative (Negative)
--- NOTE | 2019-01-13 17:50 | OB.TRI.PN ---
Progress Notes Date of Service: 01/02/19 Progress Note: false labor FHT: 140 Moderate variability reactive no decelerations category I tracing [place]: irregular Contractions flase labor dc home Laboratory Studies: Laboratory Tests 01/02/19 Range/Units 23:55 Vag Amniotic Fld Detect Negative (Negative) Multi Select Codes - Urinary/Genital Urinary/Genital CPT Codes: 81049-42 non-stress test Interp
== END 2019-01-03 00:50 | disposition home or self-care (01) ==
LOC: WPOUT 01-03 00:05 → WP 01-03 00:06
PROVIDERS: Family Provider Internal Medicine; PCP Internal Medicine; Visit Provider Obstetrics & Gynecology
DX: O32.1XX0 Maternal care for breech presentation, not applicable or unspecified (principal); O09.522 Supervision of elderly multigravida, second trimester; O99.283 Endocrine, nutritional and metabolic diseases complicating pregnancy, third trimester; E53.8 Deficiency of other specified B group vitamins; E03.9 Hypothyroidism, unspecified; O99.013 Anemia complicating pregnancy, third trimester; D50.8 Other iron deficiency anemias; O99.513 Diseases of the respiratory system complicating pregnancy, third trimester; J45.20 Mild intermittent asthma, uncomplicated; O99.213 Obesity complicating pregnancy, third trimester; E66.01 Morbid (severe) obesity due to excess calories; O99.343 Other mental disorders complicating pregnancy, third trimester; F32.9 Major depressive disorder, single episode, unspecified; F41.9 Anxiety disorder, unspecified; O99.843 Bariatric surgery status complicating pregnancy, third trimester; O99.323 Drug use complicating pregnancy, third trimester; F11.11 Opioid abuse, in remission; O99.313 Alcohol use complicating pregnancy, third trimester; F10.11 Alcohol abuse, in remission; Y90.9 Presence of alcohol in blood, level not specified; Z28.21 Immunization not carried out because of patient refusal; Z3A.36 36 weeks gestation of pregnancy
CPT/HCPCS: 59025; 59050; 84112; 87081; 99218; G0378

== ENCOUNTER → 2019-01-07 14:15 | Outpatient (CLI) | payer MEDICARE, MEDICAID, SELFPAY ==
[2019-01-07 13:09] VITALS: BMI 55.7
[2019-01-07] MEDS: Alteplase 2 MG/2 ML Vial IV (14:44)
[2019-01-07 15:56] LABS: ALB/GLOB Ratio 0.7 RATIO (0.9-2.4); AST(SGOT) 50 U/L (15-37); Alanine Aminotransfer ALT/SGPT 47 U/L (13-56); Albumin, Serum 2.4 g/dL (3.2-5.0); Alkaline Phosphatase 189 U/L (45-117); Anion Gap 9 (5-15); BUN 6 mg/dL (7-18); BUN/Creat Ratio 16.3 RATIO (10-20); Calcium,Total 7.8 mg/dL (8.5-10.1); Chloride 108 mmol/L (98-107); Creatinine, Serum 0.37 mg/dL (0.55-1.02); EST Glomerular Filtration Rate 206 mL/min (>60); Est Glom Filt Rate - Afr Amer 249 mL/min (>60); Globulin 3.5 g/dL (2.2-4.2); Glucose 88 mg/dL (74-106); Potassium 3.4 mmol/L (3.5-5.1); Protein, Total 5.9 g/dL (6.4-8.2); Sodium Level 138 mmol/L (136-145)
== END ==
PROVIDERS: Family Provider Internal Medicine; PCP Internal Medicine; Referring Provider Obstetrics & Gynecology; Visit Provider Obstetrics & Gynecology
DX: Z45.2 Encounter for adjustment and management of vascular access device (principal); L29.8 Other pruritus
CPT/HCPCS: 36591; 36593; 80053; 85025; J2997; A4216

== ENCOUNTER → 2019-01-08 09:32 | Outpatient (CLI) | payer MEDICARE, MEDICAID, SELFPAY ==
[2019-01-07 13:09] VITALS: BMI 55.7
== END ==
PROVIDERS: Family Provider Internal Medicine; PCP Internal Medicine; Referring Provider Obstetrics & Gynecology; Visit Provider Obstetrics & Gynecology
DX: O09.522 Supervision of elderly multigravida, second trimester (principal); O99.212 Obesity complicating pregnancy, second trimester; E66.01 Morbid (severe) obesity due to excess calories; Z3A.00 Weeks of gestation of pregnancy not specified
CPT/HCPCS: 36430; 76818; 80053; 85025; A4216

== ENCOUNTER → 2019-01-08 15:05 | Outpatient (CLI) | payer MEDICARE, MEDICAID, SELFPAY ==
[2019-01-07 13:09] VITALS: BMI 55.7
[2019-01-08 11:01] VITALS: BMI 55.7
--- NOTE | 2019-01-08 15:09 | US_ITS ---
STUDY: OBSTETRICAL ULTRASOUND - BIOPHYSICAL PROFILE REASON FOR EXAM: Female, 38 years old. well being LMP: 04/29/2018 PRIOR ULTRASOUND: None. TECHNIQUE: Transabdominal ultrasound evaluation was performed. FINDINGS: There is a single intrauterine fetus. The fetus is in a breech presentation. There is demonstrated cardiac activity with a heart rate of 155 bpm. There is a normal amniotic fluid volume. The amniotic fluid index (JOANA) is 10.7 cm. The placenta is anterior in location and is not low lying. BIOPHYSICAL PROFILE: Breathing Movements (FBM): 2 Gross Body Movements (GBM): 2 Tone (FT): 2 Amniotic Fluid Volume (AFV): 2 TOTAL SCORE: US/Biophysical Profile IMPRESSION: Normal biophysical profile of 09/19. Electronically Signed: Beltran Mack, at 16:21 EST Tel , Service support ,
== END ==
PROVIDERS: Family Provider Internal Medicine; PCP Internal Medicine; Referring Provider Obstetrics & Gynecology; Visit Provider Obstetrics & Gynecology
DX: O09.529 Supervision of elderly multigravida, unspecified trimester (principal); O99.89 Other specified diseases and conditions complicating pregnancy, childbirth and the puerperium; R94.5 Abnormal results of liver function studies; Z3A.00 Weeks of gestation of pregnancy not specified
CPT/HCPCS: 76818

== ENCOUNTER → 2019-01-08 15:15 | Outpatient (CLI) | payer MEDICARE, MEDICAID, SELFPAY ==
[2019-01-08 09:53] LABS: Absolute Lymphocyte Count 0.44 X10^3/uL (0.83-4.51); Absolute Neutrophil Count 3.2 X10^3/uL (2.0-7.7); Basophil# 0.01 X10^3/uL; Basophil% 0.3 % (0-1); Eosinophil# 0.01 X10^3/uL; Eosinophils% 0.3 % (0-5); Hematocrit 34.4 % (37-47); Hemoglobin 11.5 g/dL (12.0-15.0); Lymphocyte # 0.44 X10^3/ul (4.0); Lymphocyte % 11.1 % (19-41); Mean Corp Hgb Conc 33.4 g/dL (32-36); Mean Corpuscular Hgb 30.1 pg (27.0-32.0); Mean Corpuscular Volume 90.1 fL (81-99); Mean Platelet Vol. 9.7 fl (6.2-12.0); Monocyte# 0.31 X10^3/uL; Monocyte% 7.8 % (0-10); NRBC Flagged by Analyzer 0 % (0-5); Neutrophil # 3.16 X10^3/uL (2.7-7.7); Neutrophil % 79.2 % (47-70); POSITIVE DIFFERENTIAL YES; POSITIVE MORPHOLOGY YES; Platelet Count 162 K/mm3 (150-450); RBC Distribution Width CV 14.9 % (11.6-14.6); RBC Distribution Width SD 48.9 fl (35.1-43.9); Red Blood Count 3.82 M/mm3 (4.2-5.4)
[2019-01-08 09:55] LABS: Differential Indicated SCAN CRITERIA MET
[2019-01-08 10:07] LABS: ALB/GLOB Ratio 0.7 RATIO (0.9-2.4); AST(SGOT) 51 U/L (15-37); Alanine Aminotransfer ALT/SGPT 48 U/L (13-56); Albumin, Serum 2.5 g/dL (3.2-5.0); Alkaline Phosphatase 204 U/L (45-117); Anion Gap 7 (5-15); BUN 6 mg/dL (7-18); BUN/Creat Ratio 13.6 RATIO (10-20); Calcium,Total 8.2 mg/dL (8.5-10.1); Chloride 110 mmol/L (98-107); Creatinine, Serum 0.44 mg/dL (0.55-1.02); EST Glomerular Filtration Rate 167 mL/min (>60); Est Glom Filt Rate - Afr Amer 202 mL/min (>60); Globulin 3.6 g/dL (2.2-4.2); Glucose 85 mg/dL (74-106); Potassium 3.5 mmol/L (3.5-5.1); Protein, Total 6.1 g/dL (6.4-8.2); Sodium Level 140 mmol/L (136-145)
[2019-01-09 17:55] VITALS: BMI 56.0
[2019-01-10 14:17] LABS: Pathologist Review Reviewed
== END ==
PROVIDERS: Family Provider Internal Medicine; PCP Internal Medicine; Visit Provider Obstetrics & Gynecology
DX: R94.5 Abnormal results of liver function studies (principal)
CPT/HCPCS: 80053; 85025

== ENCOUNTER 2019-01-09 17:54 | Emergency (ER) | payer MEDICARE, MEDICAID, SELFPAY ==
[2019-01-08 11:01] VITALS: BMI 55.7
[2019-01-09 17:55] VITALS: BP 174/78; PULSE 112; RESP 24; TEMP 37.2; O2SAT 97; BMI 56.0
--- NOTE | 2019-01-09 17:57 | EKG12_ITS ---
Test Reason : CP Blood Pressure : / mmHG Vent. Rate : 110 BPM Atrial Rate : 110 BPM P-R Int : 126 ms QRS Dur : 064 ms QT Int : 346 ms P-R-T Axes : 040 020 052 degrees QTc Int : 468 ms Sinus tachycardia Low voltage QRS Borderline ECG Confirmed by PABLO GIBBONS MD ([id number]), associate entertainment editor MICHAEL HARRIS ([id number]) on 01/13/2019 12:00:45 PM Referred By: Confirmed By:PABLO GIBBONS MD
[2019-01-09 18:26] LABS: Absolute Lymphocyte Count 0.79 X10^3/uL (0.83-4.51); Absolute Neutrophil Count 3.3 X10^3/uL (2.0-7.7); Basophil# 0.03 X10^3/uL; Basophil% 0.7 % (0-1); Hematocrit 35.2 % (37-47); Hemoglobin 11.6 g/dL (12.0-15.0); Lymphocyte # 0.79 X10^3/ul (4.0); Lymphocyte % 17.6 % (19-41); Mean Corpuscular Hgb 29.8 pg (27.0-32.0); Mean Corpuscular Volume 90.5 fL (81-99); Monocyte# 0.31 X10^3/uL; Monocyte% 6.9 % (0-10); NRBC Flagged by Analyzer 0 % (0-5); Neutrophil # 3.25 X10^3/uL (2.7-7.7); Neutrophil % 72.4 % (47-70); POSITIVE MORPHOLOGY YES; Platelet Count 156 K/mm3 (150-450); RBC Distribution Width SD 49.7 fl (35.1-43.9); Red Blood Count 3.89 M/mm3 (4.2-5.4); White Blood Count 4.5 K/mm3 (4.4-11.0)
[2019-01-09 18:31] LABS: Prothrombin Time (Protime)PT. 13.2 SECONDS (11.7-14.9)
[2019-01-09 18:32] LABS: Partial Thromboplast Time 41.4 Seconds (24.1-36.2)
--- NOTE | 2019-01-09 18:32 | ED.VISSUMM ---
- ER Visit Summary Date of Service: 01/09/19 Chief Complaint: Chest pain History of Present Illness: The patient is a 38 F who presents with chest pain and dizziness that began today. Patient states it has gradually gotten worse throughout the day. Patient describes as an aching over her lower chest. Patient states nothing makes it better or worse. Patient does admit to some shortness of breath that has been constant for the past couple weeks. Patient states this is not worse today. Patient denies any nausea or vomiting. Patient is approximately 37 weeks . Physical Examination: Vital signs are stable. Patient is afebrile. Patient is in no acute distress. Oral mucosa is pink and moist. Neck is supple. Trachea is midline. There is no JVD. Heart was regular rate and rhythm. Lungs are clear and equal bilaterally. Abdomen is soft. Bowel sounds are normal. There is no tenderness. There is no guarding. There is a gravid uterus palpated. Cranial nerves II through XII are intact. There are no focal motor or sensory deficits noted. Test Results: CBC showed a mild anemia with a hemoglobin of 11.6 and hematocrit of 35.2. Platelets were normal. Comprehensive metabolic profile showed an alk phos of 232 which is stable. AST was slightly elevated at 51. Lipase was normal. PT with INR and PTT were within normal limits. Urinalysis does not show any evidence of urinary tract infection. Emergency Department Course and Treatment: Patient was placed on the monitor. Patient's blood pressure improved to 122/77. Patient was feeling better on reevaluation. Case was discussed with Dr. Sharon Justin. She will follow-up with the patient tomorrow as scheduled. Patient understood and was agreeable with the plan. All questions were answered. Disposition: Discharge home Impression: 1. Chest pain 2. This note was generated with [employer] dictation software. It may contain incorrect words, spelling, and punctuation that were not noted in review of the chart prior to signing ED Disposition - Plan for ED Patient: Disposition: Home or Assisted Living Diagnosis: Chest pain, , Morbid obesity Instructions: CHEST PAIN, Uncertain Cause Referrals: Brodie Fernandes MD [Primary Care Provider] - Sharon Justin MD [STAFF PHYSICIAN] - 1 Day
[2019-01-09 18:37] LABS: Red Blood Cells-Urine 0 SEEN /hpf (0-5)
[2019-01-09 18:41] LABS: ALB/GLOB Ratio 0.7 RATIO (0.9-2.4); AST(SGOT) 51 U/L (15-37); Alanine Aminotransfer ALT/SGPT 48 U/L (13-56); Albumin, Serum 2.5 g/dL (3.2-5.0); Alkaline Phosphatase 232 U/L (45-117); Anion Gap 9 (5-15); BUN 7 mg/dL (7-18); BUN/Creat Ratio 16.6 RATIO (10-20); Calcium,Total 8.2 mg/dL (8.5-10.1); Chloride 112 mmol/L (98-107); Creatinine, Serum 0.42 mg/dL (0.55-1.02); EST Glomerular Filtration Rate 177 mL/min (>60); Est Glom Filt Rate - Afr Amer 214 mL/min (>60); Estimated Creatinine Clearance 153.75 ml/min; Globulin 3.5 g/dL (2.2-4.2); Glucose 81 mg/dL (74-106); Lipase 57 U/L (73-393); Magnesium 1.9 mg/dL (1.6-2.6); Potassium 3.7 mmol/L (3.5-5.1); Sodium Level 142 mmol/L (136-145)
[2019-01-09 18:43] LABS: Color, Urine Yellow (Yellow); Glucose, Dipstick Normal (Normal); Ketone-Dipstick 50 mg/dl (Negative); Leukocyte Esterase-Dipstick 25 /ul (Negative); Nitrite-Dipstick Negative (Negative); Occult Blood-Urine Negative /ul (Negative); Protein-Dipstick 15 mg/dl (Negative); Urine Bilirubin Dipstick Negative (Negative); Urine Clarity Clear (Clear); Urine Urobilinogen 4 mg/dl (Normal); Urine pH 6.5 (5.0 - 8.0)
[2019-01-09 18:50] LABS: Bacteria 2+ /hpf (None Seen); Mucous, Urine RARE /hpf (<or=2+); Squamous Epithelial Cells - UA 0-5 SEEN /hpf (5-10); White Blood Cells 0-5 SEEN /hpf (0-5)
[2019-01-09 18:53] LABS: Differential Comment SCANNED
[2019-01-09 18:54] LABS: Differential Indicated SCAN CRITERIA MET
[2019-01-09 19:46] VITALS: BP 109/68; PULSE 111; RESP 20; O2SAT 96
== END 2019-01-09 19:54 | disposition home or self-care (01) ==
PROVIDERS: Emergency Provider Emergency Medicine; Family Provider Internal Medicine; PCP Internal Medicine
DX: O99.89 Other specified diseases and conditions complicating pregnancy, childbirth and the puerperium (principal); R07.9 Chest pain, unspecified; O99.213 Obesity complicating pregnancy, third trimester; E66.01 Morbid (severe) obesity due to excess calories; O99.283 Endocrine, nutritional and metabolic diseases complicating pregnancy, third trimester; E03.9 Hypothyroidism, unspecified; O99.343 Other mental disorders complicating pregnancy, third trimester; F32.9 Major depressive disorder, single episode, unspecified; F41.9 Anxiety disorder, unspecified; Z3A.37 37 weeks gestation of pregnancy
CPT/HCPCS: 80053; 81001; 83690; 83735; 85025; 85610; 85730; 93005; 99283; A4216

== ENCOUNTER 2019-01-10 12:54 | Outpatient (CLI) | payer MEDICARE, MEDICAID, SELFPAY ==
[2019-01-09 17:55] VITALS: BMI 56.0
[2019-01-10 13:42] VITALS: BMI 55.0
--- NOTE | 2019-01-13 17:51 | OB.TRI.NOTE ---
- Problem List (1) False labor Status: Acute (2) AMA (advanced maternal age) multigravida 35+ Status: Acute Qualifiers: Trimester: second trimester Qualified Code(s): O09.522 - Supervision of elderly multigravida, second trimester Comment: PRR TY 01/24/19 PC Den Spouse Yared (3) Morbid obesity Status: Chronic Comment: encouraged healthy diet and lifestyle interventions. after 32 weeks growth US q 4 weeks and weekly nsts, IOL 39 weeks; 11/19 Hgb A1c 4.5; History of Present Illness Date of Service: 01/10/19 Was patient seen by the physician?: No Reason For Visit: NST Date of Service: 01/07/19 Allergies prednisone Allergy (Mild, Verified 01/08/19 09:45) shortness of breath celecoxib [From Celebrex] Allergy (Verified 01/08/19 09:45) Unknown lamotrigine [From Lamictal] Allergy (Verified 01/08/19 09:45) Rash methylprednisolone [From Medrol] Allergy (Verified 01/08/19 09:45) Rash morphine Allergy (Verified 01/08/19 09:45) Itching codeine Adverse Reaction (Verified 01/08/19 09:45) Vomiting diclofenac sodium [From Voltaren] Adverse Reaction (Verified 01/08/19 09:45) Other gabapentin [From Neurontin] Adverse Reaction (Verified 01/08/19 09:45) Chest tightness meloxicam Adverse Reaction (Verified 01/08/19 09:45) Nausea/Vom/Diarrhea nortriptyline HCl [From Pamelor] Adverse Reaction (Verified 01/08/19 09:45) Other - Pertinent Past Medical History Medical History: Past Medical History (Last Reviewed 01/08/19 @ 09:45 by Melly Frost) 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 Charlie Carson Anemia IV iron transfusion Ankle fracture 11/2008 Colitis Migraine depression SBO (small bowel obstruction) partial. 11/06/2008, 10/14/2009 Schizoaffective disorder Bipolar type, history of overdose, psychiatrist Dr. Charlie Carson Thyroid disease Surgical History: Past Surgical History (Last Reviewed 01/08/19 @ 09:45 by Melly Frost) Gastric bypass status for obesity Open RYGBP H/O eye surgery H/O foot surgery H/O hernia repair H/O shoulder surgery History of tonsillectomy Hx of cholecystectomy Port catheter in place s/p small bowel surgery NST - FHR Rate Baby A Baseline: 140 Variability:: Moderate Accelerations:: 15 x 15 Decelerations:: None NST Reactive:: Yes FHR Category:: Category I Uterine Activity:: irregular Multi Select Codes - Urinary/Genital Urinary/Genital CPT Codes: 00368-96 non-stress test Interp
== END 2019-01-10 13:40 | disposition home or self-care (01) ==
LOC: WPOUT 12:58 → WP 12:58
PROVIDERS: Family Provider Internal Medicine; PCP Internal Medicine; Referring Provider Obstetrics & Gynecology; Visit Provider Obstetrics & Gynecology
DX: O47.9 False labor, unspecified (principal); O09.522 Supervision of elderly multigravida, second trimester; O99.342 Other mental disorders complicating pregnancy, second trimester; F32.9 Major depressive disorder, single episode, unspecified; F25.0 Schizoaffective disorder, bipolar type; F41.9 Anxiety disorder, unspecified; O99.212 Obesity complicating pregnancy, second trimester; E66.01 Morbid (severe) obesity due to excess calories; O99.282 Endocrine, nutritional and metabolic diseases complicating pregnancy, second trimester; E07.9 Disorder of thyroid, unspecified; O99.842 Bariatric surgery status complicating pregnancy, second trimester; Z3A.00 Weeks of gestation of pregnancy not specified
CPT/HCPCS: 59025

== ENCOUNTER 2019-01-13 14:10 | Inpatient (IN) | payer MEDICARE, MEDICAID, SELFPAY ==
[2019-01-13] VITALS (11 sets, daily range): BP systolic 116–156; BP diastolic 50–81; PULSE 85–105; RESP 18–20; TEMP 36.3–37.2; O2SAT 94–96; BMI 59.5
[2019-01-13 12:43] LABS: Mean Corp Hgb Conc 33.3 g/dL (32-36); Mean Corpuscular Hgb 29.6 pg (27.0-32.0); Mean Corpuscular Volume 88.7 fL (81-99); Mean Platelet Vol. 10.4 fl (6.2-12.0); Platelet Count 179 K/mm3 (150-450); RBC Distribution Width CV 14.9 % (11.6-14.6); RBC Distribution Width SD 48.5 fl (35.1-43.9); Red Blood Count 3.72 M/mm3 (4.2-5.4); White Blood Count 7.6 K/mm3 (4.4-11.0)
[2019-01-13 12:55] LABS: AST(SGOT) 40 U/L (15-37); Alanine Aminotransfer ALT/SGPT 43 U/L (13-56); Creatinine, Serum 0.38 mg/dL (0.55-1.02); EST Glomerular Filtration Rate 199 mL/min (>60); Est Glom Filt Rate - Afr Amer 241 mL/min (>60); Estimated Creatinine Clearance 155.65 ml/min; Uric Acid 3.9 mg/dL (2.6-6.0)
[2019-01-13 13:05] LABS: Protein, Urine (Random) 24.7 mg/dL (<11.9); Protein:Creat Ratio 647 mg/g CRE (0-200)
[2019-01-13] MEDS: Lactated Ringers 1,000 ML 999 ML IV (14:25)
[2019-01-13] MEDS: Sodium Citrate/Citric Acid 30 ML UDC PO (15:46)
[2019-01-13] MEDS: Oxytocin 30 units/NS 500 ml 30 UNITS/500 ML IV.SOLN 167 UNITS IV (17:34)
[2019-01-13] MEDS: Ketorolac 30 MG/ML Syringe IV (18:40)
[2019-01-13] MEDS: 0.9% Saline Lock 10 ML Syringe IV (18:41)
--- NOTE | 2019-01-13 19:48 | PCM.HP.OB ---
- Problem List (1) Preeclampsia Status: Acute (2) Breech presentation Status: Acute Qualifiers: Comment: plan c section at 39 wk (3) Contraception management Status: Acute Qualifiers: Comment: title 19 signed 11/27/18 (4) Vitamin B 12 deficiency Status: Acute Comment: just approved for in home injections (5) Iron deficiency anemia due to dietary causes Status: Acute Comment: iv venofer infusions. Anemia improving. (6) Low grade squamous intraepithelial lesion (LGSIL) Status: Acute Comment: +HPV in 2016, nl 06/30 (7) History of heroin abuse Status: Acute Comment: last use 2008; tox screen 06/14/18- negative; 11/27 neg (8) History of alcohol abuse Status: Acute Comment: currently in remission (9) Anxiety and depression Status: Acute Comment: Dr. Charlie Carson (10) Status: Acute Qualifiers: Comment: Needs growth US [id number], NST weekly and daily kick counts after 32 weeks. Normal NT (11) AMA (advanced maternal age) multigravida 35+ Status: Acute Qualifiers: Comment: PRR TY 01/24/19 PC Den Spouse Yared (12) Hypothyroid Status: Chronic Qualifiers: Comment: check labs every trimester (13) Asthma Status: Chronic Qualifiers: Comment: stable controlled (14) Morbid obesity Status: Chronic Comment: encouraged healthy diet and lifestyle interventions. after 32 weeks growth US q 4 weeks and weekly nsts, IOL 39 weeks; 11/19 Hgb A1c 4.5; History Date of Admission: 03/30/15 Final TY: 01/24/19 Gestational age: 38 Weeks and 3 Days History of this : This is a 38 year-old, , at 38 weeks gestational age PRESENTS with mild preeclampsia. Medical History: Medical History (Last Reviewed 01/08/19 @ 09:45 by Melly Frost) Low grade squamous intraepithelial lesion (LGSIL) (Acute) +HPV in 2015, nl 06/30 History of heroin abuse (Acute) F11.11 last use 2008; tox screen 06/14/18- negative; 11/27 neg History of alcohol abuse (Acute) F10.11 currently in remission Anxiety and depression (Acute) F41.9, F32.9 Dr. Charlie Carson Anemia D64.9 IV iron transfusion Ankle fracture S82.899A 11/2008 Colitis K52.9 Migraine G43.909 depression O99.345, F53.0 SBO (small bowel obstruction) K56.609 partial. 11/06/2008, 10/14/2009 Schizoaffective disorder F25.9 Bipolar type, history of overdose, psychiatrist Dr. Charlie Carson Thyroid disease E07.9 Surgical History: Surgical History (Last Reviewed 01/08/19 @ 09:45 by Melly Frost) Gastric bypass status for obesity Z98.84 Open RYGBP H/O eye surgery Z98.890 H/O foot surgery Z98.890 H/O hernia repair Z98.890, Z87.19 H/O shoulder surgery Z98.890 History of tonsillectomy Z98.890, Z90.89 Hx of cholecystectomy Z98.890, Z90.[address] Z95.828 s/p small bowel surgery Allergies prednisone Allergy (Mild, Verified 01/08/19 09:45) shortness of breath celecoxib [From Celebrex] Allergy (Verified 01/08/19 09:45) Unknown lamotrigine [From Lamictal] Allergy (Verified 01/08/19 09:45) Rash methylprednisolone [From Medrol] Allergy (Verified 01/08/19 09:45) Rash morphine Allergy (Verified 01/08/19 09:45) Itching codeine Adverse Reaction (Verified 01/08/19 09:45) Vomiting diclofenac sodium [From Voltaren] Adverse Reaction (Verified 01/08/19 09:45) Other gabapentin [From Neurontin] Adverse Reaction (Verified 01/08/19 09:45) Chest tightness meloxicam Adverse Reaction (Verified 01/08/19 09:45) Nausea/Vom/Diarrhea nortriptyline HCl [From Pamelor] Adverse Reaction (Verified 01/08/19 09:45) Other Home Medications: Home Medications Buspirone HCl [Buspar] 20 mg PO BID 11/24/12 Vilazodone Hydrochloride [Viibryd] 40 mg PO DAILY 11/24/12 Vits [Prenatabs FA] 1 tab PO DAILY 06/05/18 vortioxetine 20 mg tablet 20 mg PO DAILY 06/26/18 cholecalciferol (vitamin D3) 1,000 unit capsule 1,000 unit PO DAILY 07/26/18 levothyroxine 125 mcg tablet 125 mcg PO DAILY 07/26/18 Ursodiol 300 mg PO BID 01/13/19 Smoking Status: Never smoker Alcohol: None Number of Fetus(es): 1 NST - FHR Rate Baby A Baseline: 130 Variability:: Moderate Accelerations:: 15 x 15 Decelerations:: None NST Reactive:: Yes FHR Category:: Category I Uterine Activity:: no regular History Past Pregnancies: Past Pregnancies previous Labs: Mom's Labs & Results 01/13/19 01/13/19 01/13/19 12:30 12:30 12:30 WBC 7.6 RBC 3.72 L Hgb 11.0 L Hct 33.0 L MCV 88.7 MCH 29.6 MCHC 33.3 RDW Std Deviation 48.5 H RDW Coeff of Penny 14.9 H Plt Count 179 MPV 10.4 Creatinine 0.38 L Estim Creat Clear Calc 155.65 Est GFR (MDRD) Af Amer 241 Est GFR (MDRD) Non-Af 199 Uric Acid 3.9 AST 40 H ALT 43 U Random Total Protein 24.7 H Urine Creatinine 38.20 Protein/Creatinin Ratio 647 H Blood Type Antibody Screen 01/13/19 14:40 WBC RBC Hgb Hct MCV MCH MCHC RDW Std Deviation RDW Coeff of Penny Plt Count MPV Creatinine Estim Creat Clear Calc Est GFR (MDRD) Af Amer Est GFR (MDRD) Non-Af Uric Acid AST ALT U Random Total Protein Urine Creatinine Protein/Creatinin Ratio Blood Type O POSITIVE Antibody Screen NEGATIVE Course Did the patient receive Yes care? Labs Blood Type: O RH: POSITIVE RPR/VDRL/Syphilis Nonreactive Rubella status Immune HbSAg Negative Date Done: 07/02/18 Chlamydia Negative Gonorrhea Negative HIV/AIDS Non-Reactive Group B Strep: Negative Current Obstetrical History Gestational Diabetes No Incompetent Cervix No Infertility No IUGR No Macrosomia No Hypertension/Pre-eclampsia Yes Placenta Previa/Abruption No PTL/PROM No Uterine anomaly No Oligohydramnios No Polyhydramnios No Multiple gestation No Past Medical History Asthma Yes: mild Diabetes No Hypertension No Heart disease No Mitral valve prolapse No Neurologic/Seizure disorder/ No Migraines Kidney disease No Liver disease No Varicosities No Clotting disorders/Hx of DVT No Thyroid Dysfunction Yes Other medical diseases Yes: Anemia, small bowel obstructions, vitamin b12 deficiency Psychiatric disorders Yes: anxiety, depression Major trauma No Abnormal PAP smear Yes: after delivery of first child Sleep apnea No Mammogram in the last 2 years No Social History Marital Status: Alleged father Yared Aponte Smoking No Smoking Status Never smoker Expected Delivery Method: APURVA Section Review of Systems Constitutional: Denies: Fever, Malaise Eyes: Denies: Blurred vision, Vision Change HEENT: Denies: Head Aches, Visual Changes Cardiovascular: Denies: Chest Pain, Palpitations Respiratory: Denies: Cough, Shortness of Breath, Wheezing Gastrointestinal: Denies: Abdominal Pain, Diarrhea, Nausea, Vomiting Genitourinary: Denies: Dysuria, Hematuria Musculoskeletal: Denies: Joint Pain, Muscle pain Skin: Denies: Lesions, Rash Neurological: Denies: Blurred vision, Focal weakness, Headaches Psychiatric: Denies: Anxiety, Depression Endocrine: Denies: Heat/ Cold Intolerance Hematologic/ Lymphatic: Denies: Easy Bruising, Easy Bleeding Physical Exam Vitals: Vital Signs Temp Pulse Resp BP Pulse Ox 98.8 F 94 20 H 142/81 H 95 01/13/19 18:50 01/13/19 19:05 01/13/19 19:05 01/13/19 19:05 01/13/19 19:05 General: Alert, Cooperative, No apparent distress HEENT: Atraumatic, Normocephalic. Negative for: Thyromegaly, Lymphadenopathy Cardiovascular: Regular rate Lungs: Normal air movement Abdomen: Soft, Non Tender, Gravid Neurological: Deep Tendon Reflexes 2+/4 and Symmetrical, Neuro grossly intact. Negative for: Clonus [employer]ECT: Normal external genitalia. Negative for: Vulvar lesions Estimated gestational size: Appropriate for gestational size Presentation: Breech Assessment/Plan All Active Problems (Last Reviewed 01/08/19 @ 09:45 by Melly Frost) False labor (Acute) Preeclampsia (Acute) Breech presentation (Acute) Contraception management (Acute) Vitamin B 12 deficiency (Acute) Iron deficiency anemia due to dietary causes (Acute) Low grade squamous intraepithelial lesion (LGSIL) (Acute) History of heroin abuse (Acute) History of alcohol abuse (Acute) Anxiety and depression (Acute) (Acute) AMA (advanced maternal age) multigravida 35+ (Acute) Abrasion, right knee, initial encounter (Resolved) Contusion of right knee (Resolved) History of depression (Resolved) Influenza A (Resolved) SBO (small bowel obstruction) (Resolved) Radiation chimera (Ruled-out) This is a 38 year-old, at 38 weeks gestational age presents with preeclampsia. plan LTCS for breech
--- NOTE | 2019-01-13 19:51 | OP.PCM_ITS ---
Problem List (1) Preeclampsia Status: Acute (2) Breech presentation Status: Acute Qualifiers: Comment: plan c section at 39 wk (3) Contraception management Status: Acute Qualifiers: Comment: title 19 signed 11/27/18 (4) Vitamin B 12 deficiency Status: Acute Comment: just approved for in home injections (5) Iron deficiency anemia due to dietary causes Status: Acute Comment: iv venofer infusions. Anemia improving. (6) Low grade squamous intraepithelial lesion (LGSIL) Status: Acute Comment: +HPV in 2016, nl 06/30 (7) History of heroin abuse Status: Acute Comment: last use 2008; tox screen 06/14/18- negative; 11/27 neg (8) History of alcohol abuse Status: Acute Comment: currently in remission (9) Anxiety and depression Status: Acute Comment: Dr. Charlie Carson (10) Status: Acute Qualifiers: Comment: Needs growth US [id number], NST weekly and daily kick counts after 32 weeks. Normal NT (11) AMA (advanced maternal age) multigravida 35+ Status: Acute Qualifiers: Comment: PRR TY 01/24/19 PC Den Spouse Yared (12) Hypothyroid Status: Chronic Qualifiers: Comment: check labs every trimester (13) Asthma Status: Chronic Qualifiers: Comment: stable controlled (14) Morbid obesity Status: Chronic Comment: encouraged healthy diet and lifestyle interventions. 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 Lindo catheter was placed. The patient was placed in the dorsal supine position with leftward tilt. Patient was prepped and draped in the normal sterile fashion. Pfannenstiel skin incision was made with the scalpel and carried through to the underlying layer of fascia with the scalpel. Fascia was nicked in the midline and the incision extended laterally. The rectus bellies were dissected off superiorly and inferiorly with out complication both sharply and bluntly. The peritoneum was entered digitally. The incision was stretched and a low transverse uterine incision was made with the scalpel. The 's head was delivered atraumatically followed by the anterior and posterior shoulders without complication the rest of the delivered. The cord was clamped and cut and the infant was handed off to awaiting nurse. The placenta was delivered spontaneously immediately following and was noted to be intact and have a three- vessel cord. The uterus was exteriorized cleared of all clots and debris, and the incision was closed in a double layer closure using #1 Monocryl. The ovaries and fallopian tubes were noted to be within normal limits. The uterus was returned to the maternal abdomen and gutters were cleared of all clots and debris. The peritoneum was closed with 3-0 Monocryl in a running fashion. Gloves were changed prior to fascial closure. Fascia was closed with 0 PDS in a running fashion. Subcutaneous tissue was copiously irrigated and the skin was closed with 3-0 Monocryl in a subcuticular fashion. Mepilex dressing was applied without complication. Patient was taken to recovery in stable condition. Amniotic Membrane Rupture Type: Artificial Amniotic Fluid Description: Clear Placenta Disposition: [facility] Cord Entanglement: Around neck x 1, loose Cord Vessel Description: 3 Vessels Esitmated Blood Loss (ml): 700 Infant Gender: Male Delayed cord clamping: No Antibiotic Given: Ancef 3 grams IV x1 Complications: None - Admit VTE Documentation VTE Present on Admission: No Multi Select Codes - Urinary/Genital Urinary/Genital CPT Codes: 53177 delivery+PP Care([facility])
[2019-01-13] MEDS: oxyCODONE 5 MG Tablet PO (20:25)
[2019-01-13] MEDS: Lactated Ringers 1,000 ML 100 ML IV (20:27)
[2019-01-14 00:20] VITALS: BP 121/78; PULSE 94; RESP 18; TEMP 36.5; O2SAT 96
[2019-01-14] MEDS: Ketorolac 30 MG/ML Syringe IV ×4 (00:36→18:37)
[2019-01-14] MEDS: oxyCODONE 5 MG Tablet PO ×4 (01:57→20:14)
[2019-01-14 03:45] VITALS: BP 121/72; PULSE 94; RESP 18; TEMP 36.4; O2SAT 95
[2019-01-14] MEDS: Lactated Ringers 1,000 ML 100 ML IV (06:11)
[2019-01-14] MEDS: Enoxaparin 40 MG/0.4 ML Syringe SC ×2 (06:17→21:55)
[2019-01-14 06:53] LABS: Hematocrit 30.1 % (37-47); Mean Corp Hgb Conc 33.2 g/dL (32-36); Mean Corpuscular Hgb 29.5 pg (27.0-32.0); Mean Corpuscular Volume 88.8 fL (81-99); Mean Platelet Vol. 9.6 fl (6.2-12.0); Platelet Count 206 K/mm3 (150-450); RBC Distribution Width CV 14.8 % (11.6-14.6); Red Blood Count 3.39 M/mm3 (4.2-5.4); White Blood Count 11.6 K/mm3 (4.4-11.0)
[2019-01-14] MEDS: Senna/Docusate Sodium 1 Tablet PO (07:43)
[2019-01-14 07:50] VITALS: BP 113/70; PULSE 84; RESP 16; TEMP 36.8
--- NOTE | 2019-01-14 08:02 | PCM.PN.OB ---
Patient Problems: Active and Suspected Problems (Last Reviewed 01/08/19 @ 09:45 by Melly Frost) Preeclampsia (Acute) Subjective: doing well no complaints pain controlled no CP SOB N V has been up to bedside tolerating po lochia moderate, going well - Physical Exam Vitals/I&O's: Vital Signs Temp Pulse Resp BP Pulse Ox 98.2 F 84 16 113/70 95 01/14/19 07:50 01/14/19 07:50 01/14/19 07:50 01/14/19 07:50 01/14/19 03:45 Oxygen Delivery Method Room Air Weight: 325 lb 9.964 oz Body Mass Index (BMI) 59.5 Intake and Output for Last 24 Hours 01/12/19 01/13/19 01/14/19 23:59 23:59 23:59 Intake Total 1596.52 / 1596.52 973.33 / 973.33 Output Total 100 / 100 400 / 400 Balance 1496.52 / 1496.52 573.33 / 573.33 General: Alert, Oriented x3 Abdomen: Soft, Non-Distended, - - Dressing dry and intact. FF below U. Minimal tenderness with exam Laboratory Results 01/13/19 12:30: WBC 7.6, RBC 3.72 L, Hgb 11.0 L, Hct 33.0 L, MCV 88.7, MCH 29.6, MCHC 33.3, RDW Std Deviation 48.5 H, RDW Coeff of Penny 14.9 H, Plt Count 179, MPV 10.4 01/13/19 12:30: Creatinine 0.38 L, Estim Creat Clear Calc 155.65, Est GFR (MDRD) Af Amer 241, Est GFR (MDRD) Non-Af 199, Uric Acid 3.9, AST 40 H, ALT 43 01/13/19 12:30: U Random Total Protein 24.7 H, Urine Creatinine 38.20, Protein/Creatinin Ratio 647 H 01/13/19 14:40: Blood Type O POSITIVE, Antibody Screen NEGATIVE 01/14/19 06:45: WBC 11.6 H, RBC 3.39 L, Hgb 10.0 L, Hct 30.1 L, MCV 88.8, MCH 29.5, MCHC 33.2, RDW Std Deviation 48.0 H, RDW Coeff of Penny 14.8 H, Plt Count 206, MPV 9.6 Current Medications Acetaminophen (Tylenol) 1,000 mg PO Q8H PRN PRN Reason: Pain Score 1-3/10 Bisacodyl (Dulcolax) 10 mg RECTAL UD PRN PRN Reason: If no BM Enoxaparin Sodium (Lovenox) 40 mg SC BID COUNT INCLUDES THE [facility] Last Admin: 01/14/19 06:17 Dose: 40 mg Documented by: Hydrocortisone (Hytone) 1 applic TOPICAL TID PRN PRN; Protocol PRN Reason: Discomfort Hydromorphone HCl (Dilaudid Inj) 0.5 - 1 mg IV Q2H PRN PRN PRN Reason: for pain until taking po Lactated Ringer's () 1,000 mls @ 100 mls/hr IV .Q10H COUNT INCLUDES THE [facility] Last Admin: 01/14/19 06:11 Dose: 100 mls/hr Documented by: Naloxone HCl 4 mg/ Dextrose 504 mls @ 0 mls/hr IV .Q0M PRN; Protocol PRN Reason: To maintain Resp. rate >10 Influenza Virus Vaccine Quadrival (Flucelvax /Fluzone [id number]) 0.5 ml IM .ONCE ONE Stop: 01/14/19 10:01 Ketorolac Tromethamine (Toradol) 30 mg IV Q6H COUNT INCLUDES THE [facility] Stop: 01/15/19 12:01 Last Admin: 01/14/19 06:12 Dose: 30 mg Documented by: Methylergonovine Maleate (Methergine) 0.2 mg IM X1 PRN PRN Reason: Uterine Atony Naloxone HCl (Narcan) 0.02 mg IV Q1M PRN PRN Reason: RR <10 and pt unresponsive Naproxen (Naprosyn) 250 - 500 mg PO Q8H PRN PRN PRN Reason: Pain Score 1-3/10 Ondansetron HCl (Zofran) 4 mg IV Q4H PRN PRN PRN Reason: Nausea Oxycodone HCl (Oxyir) 5 - 10 mg PO Q4H PRN PRN PRN Reason: Pain Score 4-10/10 Last Admin: 01/14/19 07:43 Dose: 5 mg Documented by: Prochlorperazine Edisylate (Compazine Iv) 10 mg IV Q6H PRN PRN PRN Reason: NAUSEA Senna/Docusate Sodium (Senokot-S, Ave-Colace) 0 tablet PO DAILY PRN PRN Reason: Constipation Last Admin: 01/14/19 07:43 Dose: 2 tablet Documented by: Simethicone (Mylicon) 80 mg PO PCHS PRN PRN Reason: Indigestion/stomach pain Sodium Chloride () 5 - 15 ml IV UD PRN PRN Reason: SALINE FLUSH Last Admin: 01/13/19 18:41 Dose: 10 ml Documented by: Medical Necessity - Tobacco Use Smoking Status: Never smoker Assessment/Plan All Active Problems (Last Reviewed 01/08/19 @ 09:45 by Melly Frost) False labor (Acute) Preeclampsia (Acute) Breech presentation (Acute) Contraception management (Acute) Vitamin B 12 deficiency (Acute) Iron deficiency anemia due to dietary causes (Acute) Low grade squamous intraepithelial lesion (LGSIL) (Acute) History of heroin abuse (Acute) History of alcohol abuse (Acute) Anxiety and depression (Acute) (Acute) AMA (advanced maternal age) multigravida 35+ (Acute) Abrasion, right knee, initial encounter (Resolved) Contusion of right knee (Resolved) History of depression (Resolved) Influenza A (Resolved) SBO (small bowel obstruction) (Resolved) Radiation chimera (Ruled-out) s/p PLTCS PPD # 1(breech, female ) 1. routine post care 2. breast feeding- support given 3. rh positive 4. rubella immune
[2019-01-14] MEDS: Prenatal Vits Tablet 1 TABLET PO (11:34)
[2019-01-14] MEDS: busPIRone 5 MG Tablet PO ×2 (11:36→21:55)
[2019-01-14] MEDS: busPIRone 15 MG TABLET PO ×2 (11:43→21:55)
[2019-01-14] MEDS: 0.9% Saline Lock 10 ML Syringe IV ×2 (11:48→14:08)
[2019-01-14 12:00] VITALS: BP 117/73; PULSE 78; RESP 20; TEMP 36.3
[2019-01-14] MEDS: VILAZODONE HYDROCHLORIDE 10 MG TABLET 40 MG PO (12:03)
--- NOTE | 2019-01-14 14:07 | CASEMGMT ---
Social Work Assessment Labor and Delivery Unit Date of Referral: 01.14.2019 Time of Referral: 07 Referred By: Dr. Justin Date of Intervention: 01.14.2019 Time of Intervention: 1330 Reason for Referral: maternal mental health history; history of substance use prior to . History obtained from: medical records and mother of baby (MOB) Daisy Phillip Household composition: MOB, father of baby (FOB) and their older child. MOB reports home situation is safe and adequate. Patient's parent/guardian status: MITCH who is 38 years old is to FOB Yared Phillip for the last 3.5 years. FOB is age 43. MOB denies any form of abuse, control, or intimidation in relationship with FOB. MOB and FOB now have 2 children together: Daughters Den (Born 05.09.2015) and Leonidas Freitas (born 01.13.2019). Medical History: MITCH is G2, P1 to 2 after delivering Leonidas. care this started at 9 weeks and adequate thereafter. MOB has history of gastric bypass surgery. MOB delivered baby via primary APURVA due to maternal blood pressure issue. MOB reports baby was breech and the plan was for delivery later in the week. Baby 38 weeks gestation at , weighing 8 pounds 1 ounce. ?s 7 and 9 at 1 and 5 minutes of life. Educational Status: MOB has an associate degree. No issue reading, writing, or comprehending. Financial Status: MITCH is on SSI disability related to depression and receives 750 a month. FOB works at a local restaurant. MOB reports the family is managing fine with income. Supplies: MOB reports to have needed supplies including car seat, bassinet, crib, clothing, diapers, wipes, and is getting a breast pump. MOB desires to breast feed this baby. Childcare/Caregiver(s): MOB and then help from family as needed. Transportation: No reported issues. Both MOB and FOB drive. Programs/Agencies Involved: MOB reports to have medical and food through [facility]. Active with WIC. Active with [employer] [facility] for Leonidas. Den is in one day a week home based head start. MOB sees Dr. Carson in [place] for psychiatry. Children Services/Legal Issues: MOB denies any legal issues. Denies past or present involvement with children services. Behavioral Health Issues: Mental Health History: MOB reports to have depression and anxiety, and history of depression which lasted for a couple of weeks. MOB reports that wanted to check out and not take care of the baby, but instead called family for help and talked to psychiatrist who adjusted medications. MOB reports the lasted only a few weeks. MOB reports mental health has been stable and on same medication regiment for years now, except for the medication change after Den was born. Denies any thoughts, plans, or attempts at suicide since Den was born. Record indicates last suicide attempt and hospitalization was in 2004, attempted overdose. Chart indicates MOB also carries a diagnosis of Schizoaffective Disorder. MOB reports this diagnosis is no longer present as it was eventually determined that MOB?s auditory hallucinations were a result of MOB?s active drug use. MOB reports psychosis subsided once drugs were gone from MOB?s life. MOB reports has been in counseling with [facility] but none in a year and a half. MOB reports would be willing to return should medication management not suffice. Substance Use History: MOB reports history of alcohol and substance abuse. MOB reports has been sober from heroin since 2008, chart indicates sober from benzodiazepines since 08/2012, and then from alcohol since 05.09.2013. No tobacco smoking. Drug Screens: maternal screens negative on 11.05.2018 and 11.27.2018 Family/Social Stressors: Unplanned but MOB reports would not change having Leonidas for anything. No reported stressors currently. Support Systems: MOB reports FOB is helpful when at home and not working. Reports MOB?s mother will be available to help when MOB and baby discharge home. MOB reports to have a recovery group and sponsor. Active with [facility]. Also reports good support from [facility]. Depression/Shaken Baby/Safe Sleeping: MOB reports awareness and appropriate responses on said topics. ASSESSMENT: MOB alert, oriented, pleasant, and cooperative. Spontaneous conversation, thought process logical and intact, speech within normal limits. Eye contact normal. Mood and affect appropriate and congruent. MOB reports to feel her mental health is stable at this point and reports that should MOB start to feel symptoms worsening would reach out to family as has done before and talk to psychiatrist. MOB reports plan to call psychiatrist today, to get an appointment on the books since the baby has been born. MOB reports plan to stay on medication regiment and states the combination of Vybrid/Buspar/Trintellix has been working well. MOB reports has already spoken to FOB about being MOB?s accountable persons should be discharge home on pain medications. MOB reports has had major surgery in the past, since recovery from substances, and used an accountable person to help MOB stay on track with recovery. MOB reports to feel a connection to the baby and plans to remain involved with community supports already in place. MOB denies any needs or concerns currently and reports agreement for social work to check back in prior to discharge. Safe Plan of Care for infant related to substance use: Reports sober from all substances since 2014. Plan to continue abstinence. MOB denies that FOB has any substance use issues. PLAN: MOB and baby to home when ready. boom worker will check back in one more time before discharge to see how things are going and provide additional resource information for home going. -AURA Stubbs, EMT I/99
[2019-01-14 16:30] VITALS: BP 124/71; PULSE 88; RESP 16; TEMP 36.5; O2SAT 96
[2019-01-14 21:05] VITALS: BP 115/68; PULSE 81; RESP 18; TEMP 36.4
[2019-01-15] MEDS: 0.9% NaCl VAD Flush IV ×2 (00:05→05:54)
[2019-01-15] MEDS: Ketorolac 30 MG/ML Syringe IV ×3 (00:05→11:51)
[2019-01-15] MEDS: oxyCODONE 5 MG Tablet PO ×4 (01:08→22:46)
[2019-01-15 02:10] VITALS: BP 127/75; PULSE 93; RESP 17; TEMP 36.7
[2019-01-15] MEDS: Levothyroxine 125 MCG Tablet PO (05:53)
[2019-01-15] MEDS: Acetaminophen 500 MG Tablet 1000 MG PO ×2 (09:12→20:31)
[2019-01-15 09:15] VITALS: BP 120/72; PULSE 89; RESP 24; TEMP 36.7; O2SAT 97
[2019-01-15] MEDS: busPIRone 15 MG TABLET PO ×2 (10:11→22:40)
[2019-01-15] MEDS: busPIRone 5 MG Tablet PO ×2 (10:12→22:40)
[2019-01-15] MEDS: Enoxaparin 40 MG/0.4 ML Syringe SC ×2 (10:12→22:40)
[2019-01-15] MEDS: VILAZODONE HYDROCHLORIDE 10 MG TABLET 40 MG PO (10:13)
[2019-01-15] MEDS: Senna/Docusate Sodium 1 Tablet PO (10:14)
--- NOTE | 2019-01-15 10:50 | PN.OBGYN_ITS ---
Patient Problems: Active and Suspected Problems (Last Reviewed 01/08/19 @ 09:45 by Melly Frost) Preeclampsia (Acute) Subjective: doing well no complaints pain controlled no CP SOB N V ambulating well tolerating po lochia moderate, going well - Physical Exam Vitals/I&O's: Vital Signs Temp Pulse Resp BP Pulse Ox 98.1 F 89 24 H 120/72 97 01/15/19 09:15 01/15/19 09:15 01/15/19 09:15 01/15/19 09:15 01/15/19 09:15 Oxygen Delivery Method Room Air Weight: 325 lb 9.964 oz Body Mass Index (BMI) 59.5 Intake and Output for Last 24 Hours 01/13/19 01/14/19 01/15/19 23:59 23:59 23:59 Intake Total 1596.52 / 1596.52 1788.33 / 1788.33 Output Total 100 / 100 1400 / 1400 Balance 1496.52 / 1496.52 388.33 / 388.33 General: Alert, Oriented x3 Abdomen: Soft, Non-Distended, - - FF. Dressing dry and intact Current Medications Acetaminophen (Tylenol) 1,000 mg PO Q8H PRN PRN Reason: Pain Score 1-3/10 Last Admin: 01/15/19 09:12 Dose: 1,000 mg Documented by: Bisacodyl (Dulcolax) 10 mg RECTAL UD PRN PRN Reason: If no BM Buspirone HCl (Buspar) 15 mg PO BID [facility] Last Admin: 01/15/19 10:11 Dose: 15 mg Documented by: Buspirone HCl (Buspar) 5 mg PO BID [facility] Last Admin: 01/15/19 10:12 Dose: 5 mg Documented by: Enoxaparin Sodium (Lovenox) 40 mg SC BID [facility] Last Admin: 01/15/19 10:12 Dose: 40 mg Documented by: Heparin Sodium (Beef Lung) () 50 units IV UD PRN PRN Reason: HEPARIN FLUSH Hydrocortisone (Hytone) 1 applic TOPICAL TID PRN PRN; Protocol PRN Reason: Discomfort Hydromorphone HCl (Dilaudid Inj) 0.5 - 1 mg IV Q2H PRN PRN PRN Reason: for pain until taking po Lactated Ringer's () 1,000 mls @ 100 mls/hr IV .Q10H [facility] Last Admin: 01/15/19 00:10 Dose: Not Given Documented by: Naloxone HCl 4 mg/ Dextrose 504 mls @ 0 mls/hr IV .Q0M PRN; Protocol PRN Reason: To maintain Resp. rate >10 Ketorolac Tromethamine (Toradol) 30 mg IV Q6H [facility] Stop: 01/15/19 12:01 Last Admin: 01/15/19 05:53 Dose: 30 mg Documented by: Levothyroxine Sodium (Synthroid) 125 mcg PO DAILY@0600 [facility] Last Admin: 01/15/19 05:53 Dose: 125 mcg Documented by: Methylergonovine Maleate (Methergine) 0.2 mg IM X1 PRN PRN Reason: Uterine Atony Naloxone HCl (Narcan) 0.02 mg IV Q1M PRN PRN Reason: RR <10 and pt unresponsive Naproxen (Naprosyn) 250 - 500 mg PO Q8H PRN PRN PRN Reason: Pain Score 1-3/10 Ondansetron HCl (Zofran) 4 mg IV Q4H PRN PRN PRN Reason: Nausea Oxycodone HCl (Oxyir) 5 - 10 mg PO Q4H PRN PRN PRN Reason: Pain Score 4-10/10 Last Admin: 01/15/19 01:08 Dose: 10 mg Documented by: Multivit/Folic Acid/Iron (Prenatabs Fa) 1 tablet PO DAILY@1200 [facility] Last Admin: 01/14/19 11:34 Dose: 1 tablet Documented by: Prochlorperazine Edisylate (Compazine Iv) 10 mg IV Q6H PRN PRN PRN Reason: NAUSEA Senna/Docusate Sodium (Senokot-S, Ave-Colace) 0 tablet PO DAILY PRN PRN Reason: Constipation Last Admin: 01/15/19 10:14 Dose: 2 tablet Documented by: Simethicone (Mylicon) 80 mg PO PCHS PRN PRN Reason: Indigestion/stomach pain Sodium Chloride () 5 - 15 ml IV UD PRN PRN Reason: SALINE FLUSH Last Admin: 01/14/19 14:08 Dose: 10 ml Documented by: Sodium Chloride () 10 - 40 ml IV UD PRN PRN Reason: VAD FLUSH Last Admin: 01/15/19 05:54 Dose: 20 ml Documented by: Vilazodone HCl (Viibryd) 40 mg PO DAILY [facility] Last Admin: 01/15/19 10:13 Dose: 40 mg Documented by: Medical Necessity - Tobacco Use Smoking Status: Never smoker Assessment/Plan All Active Problems (Last Reviewed 01/08/19 @ 09:45 by Melly Frost) False labor (Acute) Preeclampsia (Acute) Breech presentation (Acute) Contraception management (Acute) Vitamin B 12 deficiency (Acute) Iron deficiency anemia due to dietary causes (Acute) Low grade squamous intraepithelial lesion (LGSIL) (Acute) History of heroin abuse (Acute) History of alcohol abuse (Acute) Anxiety and depression (Acute) (Acute) AMA (advanced maternal age) multigravida 35+ (Acute) Abrasion, right knee, initial encounter (Resolved) Contusion of right knee (Resolved) History of depression (Resolved) Influenza A (Resolved) SBO (small bowel obstruction) (Resolved) Radiation chimera (Ruled-out) s/p LTCS PPD # 2 1. routine post care 2. breast feeding- support given 3. rh positive 4. rubella immune
[2019-01-15] MEDS: 0.9% Saline Lock 10 ML Syringe IV ×2 (11:51→13:28)
[2019-01-15] MEDS: Prenatal Vits Tablet 1 TABLET PO (11:51)
[2019-01-15 14:22] VITALS: BP 111/65; PULSE 79; RESP 16; TEMP 36.2
--- NOTE | 2019-01-15 15:47 | CASEMGMT ---
Social Work Labor and Delivery Unit Spoke with RN today and no concerns regarding mother/child interactions or bonding. Followed up with mother of baby (MOB) today. Provided [facility] resources list and a depression packet that includes local, online, telephone, and reading resources. MOB reports she made a WIC appointment for [id number]. While this commercial lines underwriter in room MOB called psychiatrist, Dr. Carson, and scheduled an appointment for Sunday01.22.2019 at 1645. MOB denies any needs for home going. Reports she plans to start pumping so that father of baby and MOB's mom can help MOB out once in while when needed or desired. MOB attentive to baby during social work visit, gentle in how handled the baby. Plan: MOB and baby to home with support from father of baby and MOB's mother. MOB is active with J[employer], WIC, [employer], and psychiatry. Resources for home going have been provided. No other services requested or indicated. -GILBERTO Stubbs, NET MAKING SUPERVISOR
[2019-01-15 20:34] VITALS: BP 107/65; PULSE 78; RESP 16; TEMP 36.6; O2SAT 96
[2019-01-16 01:38] VITALS: BP 130/67; PULSE 81; RESP 18; TEMP 36.6; O2SAT 100
[2019-01-16] MEDS: oxyCODONE 5 MG Tablet PO (05:17)
[2019-01-16] MEDS: Levothyroxine 125 MCG Tablet PO (07:11)
--- NOTE | 2019-01-16 07:58 | PCM.PN.OB ---
Patient Problems: Active and Suspected Problems (Last Reviewed 01/08/19 @ 09:45 by Melly Frost) Preeclampsia (Acute) Subjective: doing well no complaints pain controlled no CP SOB N V ambulating well tolerating po lochia moderate, going well - Physical Exam Vitals/I&O's: Vital Signs Temp Pulse Resp BP Pulse Ox 97.8 F 81 18 130/67 H 100 01/16/19 01:38 01/16/19 01:38 01/16/19 01:38 01/16/19 01:38 01/16/19 01:38 Oxygen Delivery Method Room Air Weight: 325 lb 9.964 oz Body Mass Index (BMI) 59.5 Intake and Output for Last 24 Hours 01/14/19 01/15/19 01/16/19 23:59 23:59 23:59 Intake Total 1788.33 / 1788.33 Output Total 1400 / 1400 Balance 388.33 / 388.33 General: Alert, Oriented x3 Abdomen: Soft, Non Tender, Non-Distended, - - Dressing dry and intact. FF Current Medications Acetaminophen (Tylenol) 1,000 mg PO Q8H PRN PRN Reason: Pain Score 1-3/10 Last Admin: 01/15/19 20:31 Dose: 1,000 mg Documented by: Bisacodyl (Dulcolax) 10 mg RECTAL UD PRN PRN Reason: If no BM Buspirone HCl (Buspar) 15 mg PO BID [facility] Last Admin: 01/15/19 22:40 Dose: 15 mg Documented by: Buspirone HCl (Buspar) 5 mg PO BID [facility] Last Admin: 01/15/19 22:40 Dose: 5 mg Documented by: Enoxaparin Sodium (Lovenox) 40 mg SC BID [facility] Last Admin: 01/15/19 22:40 Dose: 40 mg Documented by: Heparin Sodium (Beef Lung) () 50 units IV UD PRN PRN Reason: HEPARIN FLUSH Last Admin: 01/15/19 13:28 Dose: 50 units Documented by: Hydrocortisone (Hytone) 1 applic TOPICAL TID PRN PRN; Protocol PRN Reason: Discomfort Hydromorphone HCl (Dilaudid Inj) 0.5 - 1 mg IV Q2H PRN PRN PRN Reason: for pain until taking po Naloxone HCl 4 mg/ Dextrose 504 mls @ 0 mls/hr IV .Q0M PRN; Protocol PRN Reason: To maintain Resp. rate >10 Levothyroxine Sodium (Synthroid) 125 mcg PO DAILY@0600 [facility] Last Admin: 01/16/19 07:11 Dose: 125 mcg Documented by: Methylergonovine Maleate (Methergine) 0.2 mg IM X1 PRN PRN Reason: Uterine Atony Naloxone HCl (Narcan) 0.02 mg IV Q1M PRN PRN Reason: RR <10 and pt unresponsive Naproxen (Naprosyn) 250 - 500 mg PO Q8H PRN PRN PRN Reason: Pain Score 1-3/10 Ondansetron HCl (Zofran) 4 mg IV Q4H PRN PRN PRN Reason: Nausea Oxycodone HCl (Oxyir) 5 - 10 mg PO Q4H PRN PRN PRN Reason: Pain Score 4-10/10 Last Admin: 01/16/19 05:17 Dose: 10 mg Documented by: Multivit/Folic Acid/Iron (Prenatabs Fa) 1 tablet PO DAILY@1200 [facility] Last Admin: 01/15/19 11:51 Dose: 1 tablet Documented by: Prochlorperazine Edisylate (Compazine Iv) 10 mg IV Q6H PRN PRN PRN Reason: NAUSEA Senna/Docusate Sodium (Senokot-S, Ave-Colace) 0 tablet PO DAILY PRN PRN Reason: Constipation Last Admin: 01/15/19 10:14 Dose: 2 tablet Documented by: Simethicone (Mylicon) [address] [facility] PRN PRN Reason: Indigestion/stomach pain Sodium Chloride () 5 - 15 ml IV UD PRN PRN Reason: SALINE FLUSH Last Admin: 01/15/19 13:28 Dose: 10 ml Documented by: Sodium Chloride () 10 - 40 ml IV UD PRN PRN Reason: VAD FLUSH Last Admin: 01/15/19 05:54 Dose: 20 ml Documented by: Vilazodone HCl (Viibryd) 40 mg PO DAILY [facility] Last Admin: 01/15/19 10:13 Dose: 40 mg Documented by: Medical Necessity - Tobacco Use Smoking Status: Never smoker Assessment/Plan All Active Problems (Last Reviewed 01/08/19 @ 09:45 by Melly Frost) False labor (Acute) Preeclampsia (Acute) Breech presentation (Acute) Contraception management (Acute) Vitamin B 12 deficiency (Acute) Iron deficiency anemia due to dietary causes (Acute) Low grade squamous intraepithelial lesion (LGSIL) (Acute) History of heroin abuse (Acute) History of alcohol abuse (Acute) Anxiety and depression (Acute) (Acute) AMA (advanced maternal age) multigravida 35+ (Acute) Abrasion, right knee, initial encounter (Resolved) Contusion of right knee (Resolved) History of depression (Resolved) Influenza A (Resolved) SBO (small bowel obstruction) (Resolved) Radiation chimera (Ruled-out) s/p LTCS PPD # 3 1. routine post care 2. breast feeding- support given 3. rh positive 4. rubella immune 5. Home today
--- NOTE | 2019-01-16 07:59 | DS.PCM_ITS ---
Discharge Date and Diagnosis - Problem List Patient Problems: Active and Suspected Problems (Last Reviewed 01/08/19 @ 09:45 by Melly Frost) Preeclampsia (Acute) Date of Admission: 01/13/19 - Primary Discharge Diagnosis Active and Suspected Problems (Last Reviewed 01/08/19 @ 09:45 by Melly Frost) Preeclampsia (Acute) - Secondary Discharge Diagnosis Chronic Problems (Last Reviewed 01/08/19 @ 09:45 by Melly Frost) Hypothyroid (Chronic) check labs every trimester Asthma (Chronic) stable controlled Morbid obesity (Chronic) encouraged healthy diet and lifestyle interventions. after 32 weeks growth US q 4 weeks and weekly nsts, IOL 39 weeks; 11/19 Hgb A1c 4.5; Hospital Course and Treatment Operations: - - Primary LTCS for breech Summary of Care Provided: The patient is a 38 year old F primary ltcs for breech presentation. No postop concerns, ambulating well. Pain controlled. Regular diet. No restrictions. Patient Problems: Active and Suspected Problems (Last Reviewed 01/08/19 @ 09:45 by Melly Frost) Preeclampsia (Acute) - Physical Exam Vitals/I&O's: Vital Signs Temp Pulse Resp BP Pulse Ox 97.8 F 81 18 130/67 H 100 01/16/19 01:38 01/16/19 01:38 01/16/19 01:38 01/16/19 01:38 01/16/19 01:38 Oxygen Delivery Method Room Air Weight: 325 lb 9.964 oz Body Mass Index (BMI) 59.5 Intake and Output for Last 24 Hours 01/14/19 01/15/19 01/16/19 23:59 23:59 23:59 Intake Total 1788.33 / 1788.33 Output Total 1400 / 1400 Balance 388.33 / 388.33 Current Medications Acetaminophen (Tylenol) 1,000 mg PO Q8H PRN PRN Reason: Pain Score 1-3/10 Last Admin: 01/15/19 20:31 Dose: 1,000 mg Documented by: Bisacodyl (Dulcolax) 10 mg RECTAL UD PRN PRN Reason: If no BM Buspirone HCl (Buspar) 15 mg PO BID [facility] Last Admin: 01/15/19 22:40 Dose: 15 mg Documented by: Buspirone HCl (Buspar) 5 mg PO BID [facility] Last Admin: 01/15/19 22:40 Dose: 5 mg Documented by: Enoxaparin Sodium (Lovenox) 40 mg SC BID [facility] Last Admin: 01/15/19 22:40 Dose: 40 mg Documented by: Heparin Sodium (Beef Lung) () 50 units IV UD PRN PRN Reason: HEPARIN FLUSH Last Admin: 01/15/19 13:28 Dose: 50 units Documented by: Hydrocortisone (Hytone) 1 applic TOPICAL TID PRN PRN; Protocol PRN Reason: Discomfort Hydromorphone HCl (Dilaudid Inj) 0.5 - 1 mg IV Q2H PRN PRN PRN Reason: for pain until taking po Naloxone HCl 4 mg/ Dextrose 504 mls @ 0 mls/hr IV .Q0M PRN; Protocol PRN Reason: To maintain Resp. rate >10 Levothyroxine Sodium (Synthroid) 125 mcg PO DAILY@0600 [facility] Last Admin: 01/16/19 07:11 Dose: 125 mcg Documented by: Methylergonovine Maleate (Methergine) 0.2 mg IM X1 PRN PRN Reason: Uterine Atony Naloxone HCl (Narcan) 0.02 mg IV Q1M PRN PRN Reason: RR <10 and pt unresponsive Naproxen (Naprosyn) 250 - 500 mg PO Q8H PRN PRN PRN Reason: Pain Score 1-3/10 Ondansetron HCl (Zofran) 4 mg IV Q4H PRN PRN PRN Reason: Nausea Oxycodone HCl (Oxyir) 5 - 10 mg PO Q4H PRN PRN PRN Reason: Pain Score 4-10/10 Last Admin: 01/16/19 05:17 Dose: 10 mg Documented by: Multivit/Folic Acid/Iron (Prenatabs Fa) 1 tablet PO DAILY@1200 [facility] Last Admin: 01/15/19 11:51 Dose: 1 tablet Documented by: Prochlorperazine Edisylate (Compazine Iv) 10 mg IV Q6H PRN PRN PRN Reason: NAUSEA Senna/Docusate Sodium (Senokot-S, Vae-Colace) 0 tablet PO DAILY PRN PRN Reason: Constipation Last Admin: 01/15/19 10:14 Dose: 2 tablet Documented by: Simethicone (Mylicon) 80 mg PO PCHS PRN PRN Reason: Indigestion/stomach pain Sodium Chloride () 5 - 15 ml IV UD PRN PRN Reason: SALINE FLUSH Last Admin: 01/15/19 13:28 Dose: 10 ml Documented by: Sodium Chloride () 10 - 40 ml IV UD PRN PRN Reason: VAD FLUSH Last Admin: 01/15/19 05:54 Dose: 20 ml Documented by: Vilazodone HCl (Viibryd) 40 mg PO DAILY [facility] Last Admin: 01/15/19 10:13 Dose: 40 mg Documented by: Home Medications: Medications to take at Discharge Buspirone HCl [Buspar] 20 mg PO BID 11/24/12 Vilazodone Hydrochloride [Viibryd] 40 mg PO DAILY 11/24/12 Vits [Prenatabs FA] 1 tab PO DAILY 06/05/18 vortioxetine 20 mg tablet 20 mg PO DAILY 06/26/18 cholecalciferol (vitamin D3) 1,000 unit capsule 1,000 unit PO DAILY 07/26/18 levothyroxine 125 mcg tablet 125 mcg PO DAILY 07/26/18 Ursodiol 300 mg PO BID 01/13/19 Primary Care Physician: Brodie Fernandes MD [Primary Care Provider] - Medical Necessity - Tobacco Use Smoking Status: Never smoker Meaningful Use Info Meaningful Use Diagnoses (Choose all that apply): None applicable
--- NOTE | 2019-01-16 08:08 | DCINST_ITS ---
Additional Instructions: If you experience any of the following, contact your healthcare provider. * Bleeding that soaks a pad every hour for 2 hours * Fever 100.4 or higher * Unrelieved incision or abdominal pain * Swelling, redness, discharge or bleeding from your incision or episiotomy site * Your incision begins to separate * Problems urinating (including inability to urinate or burning while urinating). * Visual changes * Severe headache * Flu-like symptoms * Pain or redness in one of both of your breasts * Pain, warmth, tenderness or swelling in your legs, especially the calf area * Frequent nausea and vomiting * Symptoms of depression or anxiety If you experience any of the following, call 911 or go to the nearest Emergency Room. * Chest pain * Problems breathing * Seizure activity * Partial or complete paralysis of a body part, slurred speech, weakness or drooping of the face, or a sudden inability to walk or hold your balance Allergies/Adverse Reactions: Allergies prednisone Allergy (Mild, Verified 01/08/19 09:45) shortness of breath celecoxib [From Celebrex] Allergy (Verified 01/08/19 09:45) Unknown lamotrigine [From Lamictal] Allergy (Verified 01/08/19 09:45) Rash methylprednisolone [From Medrol] Allergy (Verified 01/08/19 09:45) Rash morphine Allergy (Verified 01/08/19 09:45) Itching codeine Adverse Reaction (Verified 01/08/19 09:45) Vomiting diclofenac sodium [From Voltaren] Adverse Reaction (Verified 01/08/19 09:45) Other gabapentin [From Neurontin] Adverse Reaction (Verified 01/08/19 09:45) Chest tightness meloxicam Adverse Reaction (Verified 01/08/19 09:45) Nausea/Vom/Diarrhea nortriptyline HCl [From Pamelor] Adverse Reaction (Verified 01/08/19 09:45) Other Medications to take at Discharge Buspirone HCl [Buspar] 20 mg PO BID 11/24/12 Vilazodone Hydrochloride [Viibryd] 40 mg PO DAILY 11/24/12 Vits [Prenatabs FA] 1 tab PO DAILY 06/05/18 vortioxetine 20 mg tablet 20 mg PO DAILY 06/26/18 cholecalciferol (vitamin D3) 1,000 unit capsule 1,000 unit PO DAILY 07/26/18 levothyroxine 125 mcg tablet 125 mcg PO DAILY 07/26/18 Ursodiol 300 mg PO BID 01/13/19 Naproxen [Naprosyn] 500 mg PO BID PRN PRN #60 tab 01/16/19 The following prescriptions were given: Naproxen [Naprosyn] 500 mg PO BID PRN PRN #60 tab PRN Reason: Pain Transmission Status: Received by [facility] Follow-Up: Call to make an appointment with your doctor for an incision check in 1-2 weeks. You will also need a 6 week post- follow up appointment. Test results from this visit will be discussed in further detail at your follow- up appointment, if applicable. Primary Care Physician: Brodie Fernandes MD [Primary Care Provider] -
[2019-01-16 08:19] VITALS: BP 124/76; PULSE 84; RESP 16; TEMP 36.8; O2SAT 96
[2019-01-16 11:00] VITALS: BP 124/76; PULSE 80; RESP 16; TEMP 36.5; O2SAT 96
== END 2019-01-16 11:50 | disposition home or self-care (01) | DRG 788 ==
LOC: WP 14:17
PROVIDERS: Admitting Provider Obstetrics & Gynecology; Family Provider Internal Medicine; PCP Internal Medicine; Referring Provider Obstetrics & Gynecology; Visit Provider Obstetrics & Gynecology
DX: O14.04 Mild to moderate pre-eclampsia, complicating childbirth (principal); O32.1XX0 Maternal care for breech presentation, not applicable or unspecified; O69.81X0 Labor and delivery complicated by cord around neck, without compression, not applicable or unspecified; O99.02 Anemia complicating childbirth; D50.8 Other iron deficiency anemias; O99.284 Endocrine, nutritional and metabolic diseases complicating childbirth; E53.8 Deficiency of other specified B group vitamins; E03.9 Hypothyroidism, unspecified; O99.52 Diseases of the respiratory system complicating childbirth; J45.909 Unspecified asthma, uncomplicated; O99.214 Obesity complicating childbirth; E66.01 Morbid (severe) obesity due to excess calories; O99.844 Bariatric surgery status complicating childbirth; O99.344 Other mental disorders complicating childbirth; F32.9 Major depressive disorder, single episode, unspecified; F41.9 Anxiety disorder, unspecified; Z3A.38 38 weeks gestation of pregnancy; Z37.0 Single live birth; Z79.899 Other long term (current) drug therapy; Z23 Encounter for immunization
CPT/HCPCS: 59025; 59050; 82565; 82570; 84156; 84450; 84460; 84550; 85027; 86850; 86900; 86901; 99218; G0008; J7120; 90686; A4216; G0378; J2405

== ENCOUNTER 2019-03-04 08:44 | Day surgery (SDC) | payer MEDICARE, MEDICAID, SELFPAY ==
[2019-01-21 10:30] VITALS: BMI 59.5
[2019-02-28 13:35] VITALS: BMI 59.5
[2019-03-04] VITALS (7 sets, daily range): BP systolic 103–132; BP diastolic 55–95; PULSE 76–100; RESP 16; TEMP 36.4–36.9; O2SAT 92–99; BMI 51.4
--- NOTE | 2019-03-04 05:25 | PCM.HPOB.BLA ---
- Problem List (1) Contraception management Status: Acute Qualifiers: Comment: title 19 signed 11/27/18 History and Physical Date of Admission: 03/04/19 Intake Vital Signs 02/28/19 Height 5 ft 4 in 02/28/19 Weight: 303 lb 02/28/19 BMI 52.0 02/28/19 BP 120/88 H Intake Visit Reasons: 6 week post Chief Complaint: 6w pp [employer] Required: No Is patient in pain?: No Allergies prednisone Allergy (Mild, Verified 02/28/19 13:13) shortness of breath celecoxib [From Celebrex] Allergy (Verified 02/28/19 13:13) Unknown lamotrigine [From Lamictal] Allergy (Verified 02/28/19 13:13) Rash methylprednisolone [From Medrol] Allergy (Verified 02/28/19 13:13) Rash morphine Allergy (Verified 02/28/19 13:13) Itching codeine Adverse Reaction (Verified 02/28/19 13:13) Vomiting diclofenac sodium [From Voltaren] Adverse Reaction (Verified 02/28/19 13:13) Other gabapentin [From Neurontin] Adverse Reaction (Verified 02/28/19 13:13) Chest tightness meloxicam Adverse Reaction (Verified 02/28/19 13:13) Nausea/Vom/Diarrhea nortriptyline HCl [From Pamelor] Adverse Reaction (Verified 02/28/19 13:13) Other Medications Buspirone HCl [Buspar] 20 mg PO BID 11/24/12 [History Confirmed 02/28/19] Vilazodone Hydrochloride [Viibryd] 40 mg PO DAILY 11/24/12 [History Confirmed 02/28/19] vortioxetine 20 mg tablet 20 mg PO DAILY 06/26/18 [History Confirmed 02/28/19] levothyroxine 125 mcg tablet 125 mcg PO DAILY 07/26/18 [History Confirmed 02/28/19] Ergocalciferol [Vitamin D] 50,000 unit PO Q7D 02/26/19 [History Confirmed 02/28/19] Last Menstral Period: 02/24/19 Zika: Zika virus screening: Negative : No PFSH PFSH Medical History Low grade squamous intraepithelial lesion (LGSIL) (Acute) History of heroin abuse (Acute) History of alcohol abuse (Acute) Anxiety and depression (Acute) Anemia (Acute) Ankle fracture (Acute) Colitis (Acute) Migraine (Acute) depression (Acute) SBO (small bowel obstruction) (Acute) Schizoaffective disorder (Acute) Thyroid disease (Acute) Surgical History Gastric bypass status for obesity (Acute) H/O eye surgery (Acute) H/O foot surgery (Acute) H/O hernia repair (Acute) H/O shoulder surgery (Acute) History of tonsillectomy (Acute) Hx of cholecystectomy (Acute) Port catheter in place (Acute) s/p small bowel surgery (Acute) Family History Other CVA (cerebral vascular accident) Heart disease Social History (Updated 02/28/19 @ 13:35 by Sharon Justin MD) adopted: Yes Smoking Status: Never smoker alcohol intake: former year quit: 2013 details: recovering since 2013 substance use type: former substance user Date of last use: 2009, heroin, opiates caffeine: No what type of physical activity do you participate in: walking frequency: 3-4 times per week seatbelt use: always do you feel safe at home: Yes additional social history: -Yared Pregancy History 2 Elective abortions Hx Para 2 Spontaneous abortions Hx # Term Pregnancies Ectopic pregnancies Hx # Pregnancies Multiple births # of living children 2 Past Pregnancies Del. Date Name GA/Weeks Outcome Route Bth Weight Gen Labor Lgth Anesthesia Del [facility] Provider FOB 05/11/15 Den 39 live - full term 6lbs 12oz Female epidural [facility] Dr. Margoth Vail 01/13/19 Leonidas 38 live - full term 8lbs 1oz Female spinal [facility] Delivery Date: 05/11/15 On 06/26/18 @ 15:58 Rand Winkler No issues during or delivery. Delivery Date: 01/13/19 On 01/14/19 @ 16:18 Melly Frost LTCS-BREECH, PRE E, TUBAL LIGATION HPI 6 week post : Details: SHAQ LEE ANN is a 38 year old who presents for routine OB visit. ACOG First Trimester First Trimester: Discussed Diagnostics Diagnostics Diagnostics Blood Type O POSITIVE 01/13/19 Antibody Screen NEGATIVE 01/13/19 Hgb 10.0 g/dL (12.0-15.0) L 01/14/19 Hct 30.1 % (37-47) L 01/14/19 Details: HIV: Urine Culture: Sequential Screen: NIPT Screen: ROS Const Denies fever(s) Card Reports system reviewed and no additional complaints, except as docu Resp Reports system reviewed and no additional complaints, except as docu GI Reports as per HPI, Denies abdominal pain Reports as per HPI, Denies abnormal vaginal bleeding, Denies vaginal discharge Musc Reports system reviewed and no additional complaints, except as docu Exam Const General: healthy appearing, comfortable, no acute distress HENMT Head: normal to inspection Nose: external nose normal Face and sinus: normal facial exam Neck Neck: normal visual inspection, full ROM, no lymphadenopathy Thyroid: thyroid normal Chest Chest palpation & inspection: normal inspection of the chest Resp Effort & Inspection: normal respiratory effort GI Inspection: normal to inspection Palpation: soft, nontender Assessment & Plan Problems 1. Encounter for sterilization Z30.9 title 19 signed 11/27/18 Plan After discussing the patient's diagnosis and treatment plan options, patient wishes to proceed with surgical management. I have discussed with the patient the risks, benefits, and alternatives of the procedure which include but are not limited to risks of anesthesia, bleeding, infection, possible damage to bowel, bladder, or surrounding vasculature which could lead to additional surgery to evaluate any complications. Patient agrees to procedure and wishes to proceed. Coding Level of Care Code OB Routine Diagnoses Encounter for sterilization Z30.9 UPDATE- I have seen the patient and performed any clinically relevant updates to the history and physical exam. Sharon Justin MD
[2019-03-04 09:13] LABS: Internal QC Validated? YES +Cl - CLEAR BKGD; Pregnancy, Urine Negative Negative
--- NOTE | 2019-03-04 09:46 | PCM.OPRPT ---
Problem List (1) Contraception management Status: Acute Qualifiers: Comment: title 19 signed 11/27/18 Report of Operation Date of Procedure: 03/04/19 Pre-Operative Diagnosis: sterilization Post-Operative Diagnosis: same Surgery/Procedure Performed:: laparoscopic bilateral salpingectomy Description of Surgical Findings:: nl tubes ovaries supplier quality manager: Maris Armando Type of Anesthesia:: General Special Medications: none Specimen's removed: tubes Drains: none Estimated Blood Loss (mL): 10 Fluids Replaced: crystalloid Description of Procedure: Patient was taken in the operating room and was placed under general anesthesia was prepped and draped in normal sterile fashion in the dorsal lithotomy position. Bladder was drained of clear urine and SCDs were on preoperatively. Uterus was sounded and a uterine manipulator was placed after dilating. Attention was then paid to the abdominal portion of the procedure and the umbilicus was elevated with towel clamps and injected with Marcaine and after a 5 mm incision was made and the Veress needle was entered into the abdomen confirmed to be intra-abdominal with a low opening pressure of less than 5 mmHg. Abdomen was insufflated with CO2 gas and a 5 mm optical trocar was placed under direct visualization. A left lower quadrant 5 mm port and a 5 mm port suprapubically were placed under direct visualization. Uterus was well visualized and bilateral fallopian tubes identified and bilateral tubes were elevated and transecting across the mesosalpinx and the attachment to the uterine corpus bilaterally the tubes were removed without complication. Excellent hemostasis was noted. Fallopian tubes were removed through the lower port sites without complication. Liver and upper abdomen were visualized notably within normal limits and no other gross abnormalities were seen in the abdomen. All instruments removed from the abdomen after gas was desufflated. Port sites were closed with 3-0 Monocryl Steri's and op sites were applied. All instruments removed from the vagina and patient was awoken and taken recovery in stable condition. Grafts/Implants Used: none - Complications none - Admit VTE Documentation VTE Present on Admission: No VTE Mechan Device Prophylaxis: SCD's Multi Select Codes - Urinary/Genital Urinary/Genital CPT Codes: 70646 Laproscopic BS/O
[2019-03-04] MEDS: Lactated Ringers 1,000 ML 100 ML IV (09:47)
--- NOTE | 2019-03-04 09:50 | PCM.DC.TUB ---
Discharge Diet: No Restrictions - Increase fluid intake for the next 48 hours. Discharge Activity: Return to Normal Activity, May Drive - when you are no longer taking narcotic pain medications., May Shower, May Take a Tub Bath - in 7 days Additional Activity Instructions:: Ambulate often the next week after surgery. Nothing in the vagina for 5 days. Call your doctor if your incision/area has: Continuous Slow Oozing, Sudden Increased Bleeding, Increased Pain/ Swelling, Increased Redness, Foul Smelling Discharge Call your doctor if you observe: Fever of 101 or Higher Allergies/Adverse Reactions: Allergies prednisone Allergy (Mild, Verified 02/28/19 13:13) shortness of breath celecoxib [From Celebrex] Allergy (Verified 02/28/19 13:13) Unknown lamotrigine [From Lamictal] Allergy (Verified 02/28/19 13:13) Rash methylprednisolone [From Medrol] Allergy (Verified 02/28/19 13:13) Rash morphine Allergy (Verified 02/28/19 13:13) Itching codeine Adverse Reaction (Verified 02/28/19 13:13) Vomiting diclofenac sodium [From Voltaren] Adverse Reaction (Verified 02/28/19 13:13) Other gabapentin [From Neurontin] Adverse Reaction (Verified 02/28/19 13:13) Chest tightness meloxicam Adverse Reaction (Verified 02/28/19 13:13) Nausea/Vom/Diarrhea nortriptyline HCl [From Pamelor] Adverse Reaction (Verified 02/28/19 13:13) Other Medications to take at Discharge Buspirone HCl [Buspar] 20 mg PO BID 11/24/12 Vilazodone Hydrochloride [Viibryd] 40 mg PO DAILY 11/24/12 vortioxetine 20 mg tablet 20 mg PO DAILY 06/26/18 levothyroxine 125 mcg tablet 125 mcg PO DAILY 07/26/18 Ergocalciferol [Vitamin D] 50,000 unit PO Q7D 02/26/19 Oxycodone HCl/Acetaminophen [Percocet 5-325] 1 - 2 tablet PO Q6H PRN PRN 7 Days #15 tablet 03/04/19 The following prescriptions were given: Oxycodone HCl/Acetaminophen [Percocet 5-325] 1 - 2 tablet PO Q6H PRN PRN 7 Days #15 tablet PRN Reason: Pain Transmission Status: Sent to [facility] Primary Care Physician: Brodie Fernandes MD [Primary Care Provider] - Test Results: Test results from this visit will be discussed in further detail at your follow-up appointment, if applicable. Please Follow Up With: Sharon Justin MD - [phone]
--- NOTE | 2019-03-04 10:30 | FALS_PTH ---
PATIENT: SHAQ NANCE LOC: [facility] [place] U#:[id number] AGE/SX: 38/F ROOM: RE03/04/[address]: Dr. Sharon Justin MD : 1980 BED: DIS: 03/04/2019 SPEC #: [id number] RECD: 03/04/19 13:25 STATUS: KEITH KELLY #: [id number] SANTIAGO: 03/04/19 10:[address]: Sharon Justin DEPT: SURGICAL PATHOLOGY RECD BY: Sanchez Nixon ENTERED: 03/04/19 14:03 SP TYPE: FALL TUBES OTHR DR: Dr. Brodie Fernandes MD Tissues: Fallopian tube Procedures: Surgery Specimen Level II Surgery Specimen Level IV HEADER OPERATION: Laparoscopic salpingectomy PRE-OP DIAGNOSIS: Desires sterilization TISSUE SUBMITTED: Bilateral partial fallopian tubes MICROSCOPIC DIAGNOSIS Bilateral partial fallopian tubes, segmental resection: Complete cross-sections of fallopian tube. One fallopian tube with benign paratubal cysts. AM:michael 03/05/19 MICROSCOPIC DESCRIPTION Slides are reviewed. GROSS DESCRIPTION Received is one container labeled with the patient's name and designated bilateral fallopian tubes. The specimen consists of bilateral fallopian tubes including fimbrial ends measuring 6.5 cm in length and 0.6 cm in diameter and 5.5 cm in length and 0.5 cm in diameter. Sections do not reveal any mass lesion. The fallopian tubes are not identified as right or left. Sections reveal unremarkable cut surfaces. Mortgage Loan Processing Clerk sections are submitted in two cassettes with each cassette containing one fallopian tube. / SJ:michael 03/04/19 TC:5 CPT: 35834, 66661
[2019-03-04] MEDS: Bupivacaine 0.25% 30 ML Vial (10:50)
[2019-03-04] MEDS: Fluconazole 100 MG Tablet 200 MG PO (12:23)
[2019-03-04] MEDS: HYDROcodone Bitartrate/Apap 5/325 Tablet PO (12:29)
== END 2019-03-04 13:29 | disposition home or self-care (01) ==
LOC: SDC 08:45 → AC 08:47
PROVIDERS: Family Provider Internal Medicine; PCP Internal Medicine; Referring Provider Obstetrics & Gynecology; Visit Provider Obstetrics & Gynecology
PROC: (CPT 58661; principal; 2019-03-04 10:15)
DX: Z30.2 Encounter for sterilization (principal); F25.9 Schizoaffective disorder, unspecified; E07.9 Disorder of thyroid, unspecified; F10.11 Alcohol abuse, in remission; F11.11 Opioid abuse, in remission; Z79.899 Other long term (current) drug therapy; N83.8 Other noninflammatory disorders of ovary, fallopian tube and broad ligament; J45.909 Unspecified asthma, uncomplicated
CPT/HCPCS: 00840; 58661; 81025; 88302; 88305; J7120; A4216; J2405

== ENCOUNTER 2020-03-19 10:58 | Emergency (ER) | payer MEDICARE, MEDICAID, SELFPAY ==
[2019-03-20 14:33] VITALS: BMI 51.4
[2020-03-19 10:59] VITALS: BP 149/98; PULSE 79; RESP 18; TEMP 36.6; O2SAT 100; BMI 54.9
--- NOTE | 2020-03-19 11:27 | RAD_ITS ---
STUDY: X-RAY - RIGHT FOOT CLINICAL: Female, 39 years old patient with right-sided ankle and foot pain after fall on ice yesterday. TECHNIQUE: 3 view(s) of the foot. COMPARISON: None. FINDINGS: There are small calcaneal spurs. The tarsal bones have generally normal appearance and alignment. There are well-corticated bony fragments medial to the distal talus that may represent accessory ossification centers. Normal metatarsi. Normal metatarsophalangeal joint of the great toe. Normal tibial and fibular sesamoid bones. Normal interphalangeal joint of the great toe. Normal phalanges of the great toe. Normal second through fifth metatarsophalangeal joints. Normal interphalangeal joints and phalanges of the lesser toes. There is mild soft tissue swelling. There is no demonstrated fracture. RAD/Foot min 3 Views IMPRESSION: 1. Soft tissue swelling without definite evidence for acute fracture. 2. Calcaneal spurs. 3. If there is still clinical concern for acute fracture, follow-up radiographs in 7-10 days maybe helpful in evaluating a healing radiographically occult fracture. Electronically Signed: Radha Dietz MD at 12:09 EST , Service support ,
--- NOTE | 2020-03-19 11:28 | ED.VIS.FALL ---
History of Present Illness Chief Complaint: Fall Informant: Patient Occurred: Yesterday Mechanism/Context: Same level fall, Slip Location: Left wrist and right ankle Quality of Pain: Aching Current Severity: Moderate Maximum Severity: Moderate Worsened by: Movement, walking Relieved by: Rest and remaining still Associated Symptoms: Negative for: Parasthesias, Weakness, Loss of function, Inability to ambulate, Loss of consciousness, Amnesia Narrative: Patient slipped on ice, falling to left outstretched hand and she states she almost did the splits and somehow injured her right ankle in this process. She is not sure if she inverted or not, it happened so fast. She has been able to ambulate. She denies any other injuries including her head. [id number]. - Past Medical History (1) Anxiety and depression Status: Chronic Comment: Dr. Charlie Carson (2) Iron deficiency anemia due to dietary causes Status: Chronic Comment: iv venofer infusions. Anemia improving. (3) Vitamin B 12 deficiency Status: Chronic Comment: just approved for in home injections (4) Asthma Status: Chronic Comment: stable controlled (5) Hypothyroid Status: Chronic Comment: check labs every trimester (6) Morbid obesity Status: Chronic Comment: encouraged healthy diet and lifestyle interventions. after 32 weeks growth US q 4 weeks and weekly nsts, IOL 39 weeks; 11/19 Hgb A1c 4.5; Past Medical History - Allergies and Home Meds Allergies/Adverse Reactions: Allergies prednisone Allergy (Mild, Verified 03/19/20 11:02) shortness of breath celecoxib [From Celebrex] Allergy (Verified 03/19/20 11:02) Unknown lamotrigine [From Lamictal] Allergy (Verified 03/19/20 11:02) Rash methylprednisolone [From Medrol] Allergy (Verified 03/19/20 11:02) Rash morphine Allergy (Verified 03/19/20 11:02) Itching codeine Adverse Reaction (Verified 03/19/20 11:02) Vomiting diclofenac sodium [From Voltaren] Adverse Reaction (Verified 03/19/20 11:02) Other gabapentin [From Neurontin] Adverse Reaction (Verified 03/19/20 11:02) Chest tightness meloxicam Adverse Reaction (Verified 03/19/20 11:02) Nausea/Vom/Diarrhea nortriptyline HCl [From Pamelor] Adverse Reaction (Verified 03/19/20 11:02) Other Primary Care Physician: Brodie Fernandes MD [Primary Care Provider] - Surgical History: cholecystectomy, gastric bypass, herniorrhaphy, tonsillectomy, - Smoking Status: Never smoker Review of Systems Musculoskeletal: Reports: Extremity Pain. Denies: Neck pain, Back pain, Swelling Skin: Denies: Rash, Wounds Neurological: Denies: Headache, Weakness, Numbness Physical Exam Vital Signs/Narrative: Vital Signs Temp Pulse Resp BP Pulse Ox 03/19/20 10:59 97.8 F 79 18 149/98 H 100 Inital Vital Signs reviewed: Yes General: Well nourished, Well developed, Obese, - - Well-appearing no distress Head: Normocephalic, Atraumatic Back: Nontender - Full range of motion Extremeties: No deformities. Tender at the right ankle lateral malleolus, nontender to medial malleolus and at the knee including proximal fibula. Also tender throughout the lateral half of the right midfoot including the base of the fifth metatarsal although this tenderness is all very mild. Toes nontender. No sign of focal injury there. LUE: Limited range of motion of the wrist due to pain. Mildly tender distal radius, snuffbox with increased pain with axial loading of the thumb, mildly at the distal ulna. No other areas of tenderness. Full range of motion of all fingers and elbow/shoulder. Skin: Normal color, No rash, Trauma - Minor abrasion right lateral malleolus, no other signs of trauma. Skin intact. Neurological: Alert, Oriented x3, Cranial nerves II-XII grossly intact, Normal Strength, Normal Sensation, Normal Gait Psychological: Normal affect, Normal Mood Diagnostic/Tx/Re-eval Clinical Impression(s) from Imaging Studies Foot X-Ray 03/19/20 11:27 IMPRESSION: 1. Soft tissue swelling without definite evidence for acute fracture. 2. Calcaneal spurs. 3. If there is still clinical concern for acute fracture, follow-up radiographs in 7-10 days maybe helpful in evaluating a healing radiographically occult fracture. Electronically Signed: Radha Dietz MD at 12:09 EST , Service support , Ankle X-Ray 03/19/20 11:36 IMPRESSION: Soft tissue swelling without definite acute fracture. If there is still clinical concern for acute fracture, follow-up radiographs in 7-10 days maybe helpful in evaluating a healing radiographically occult fracture. Electronically Signed: Radha Dietz MD at 12:05 EST , Service support , Wrist X-Ray 03/19/20 11:36 IMPRESSION: Soft tissue swelling without definite evidence for acute fracture. If there is still clinical concern for acute fracture, follow-up radiographs in 7-10 days maybe helpful in evaluating a healing radiographically occult fracture. Electronically Signed: Radha Dietz MD at 12:12 EST , Service support , - Medical Decision Making X-rays of the left wrist 3 views my interpretation are negative, x-rays of the right foot 3 views on my interpretation are negative, and x-rays of the right ankle 3 views on my interpretation are also negative. She does have some tenderness in the left scaphoid and some pain there with axial loading of the thumb, and I discussed with the patient the concern here and the possibility of an occult scaphoid fracture that is not showing up on x-ray right now. Therefore she is given a thumb spica splint and referral to orthopedics for further evaluation within the next week or 2. She is comfortable taking [id number] NSAIDs as needed, and also discharged with an Juwan wrap for her right ankle. ED Disposition - Plan for ED Patient: Disposition: Home or Assisted Living Diagnosis: Fall from slipping on ice, Left wrist sprain, Right ankle sprain Instructions: ED Ankle Sprain (Adult), ED Possible Wrist Fracture, ED Bandage Elastic Wrap Referrals: Anoop Dietz MD [STAFF PHYSICIAN] - 1 Week if not improving
[2020-03-19 11:29] VITALS: O2SAT 97
--- NOTE | 2020-03-19 11:36 | RAD_ITS ---
STUDY: X-RAY - RIGHT ANKLE REASON FOR EXAM: Female, 39 years old patient with right-sided ankle and foot pain after fall on ice yesterday. TECHNIQUE: 3 view(s) of the ankle. COMPARISON: Radiographs of the right ankle dated 01/12/2012. FINDINGS: Normal visualized distal tibia and fibula. Normal medial and lateral malleoli. Normal tibiotalar articulation and ankle mortise. There is a small plantar calcaneal spur. There is a posterior calcaneal enthesophyte. The bones are normal alignment. The joint spaces are within normal limits. There is no demonstrated fracture. There is mild soft tissue swelling. RAD/Ankle min 3 Views IMPRESSION: Soft tissue swelling without definite acute fracture. If there is still clinical concern for acute fracture, follow-up radiographs in 7-10 days maybe helpful in evaluating a healing radiographically occult fracture. Electronically Signed: Radha Dietz MD at 12:05 EST , Service support ,
--- NOTE | 2020-03-19 11:36 | RAD_ITS ---
STUDY: X-RAY - LEFT WRIST REASON FOR EXAM: Female, 39 years old patient with left wrist pain after fall on ice yesterday. TECHNIQUE: 3 view(s) of the wrist were obtained. COMPARISON: The left wrist dated 08/17/2012. FINDINGS: Normal visualized distal radius and ulna. Normal radiocarpal articulation. There is a negative ulnar variance. Normal carpal bones. Normal carpal articulations. Normal carpometacarpal articulation of the thumb. Normal second through fifth carpometacarpal articulations. Normal visualized metacarpal bones. There is soft tissue swelling. There is no demonstrated acute fracture. RAD/Wrist min 3 Views IMPRESSION: Soft tissue swelling without definite evidence for acute fracture. If there is still clinical concern for acute fracture, follow-up radiographs in 7-10 days maybe helpful in evaluating a healing radiographically occult fracture. Electronically Signed: Radha Dietz MD at 12:12 EST , Service support ,
[2020-03-19 13:36] VITALS: RESP 18
== END 2020-03-19 13:40 | disposition home or self-care (01) ==
PROVIDERS: Emergency Provider Emergency Medicine; PCP Internal Medicine
DX: S63.502A Unspecified sprain of left wrist, initial encounter (principal); S93.401A Sprain of unspecified ligament of right ankle, initial encounter; E66.01 Morbid (severe) obesity due to excess calories; F41.9 Anxiety disorder, unspecified; E03.9 Hypothyroidism, unspecified; Z98.84 Bariatric surgery status; W00.0XXA Fall on same level due to ice and snow, initial encounter
CPT/HCPCS: 73110; 73610; 73630; 99283

== ENCOUNTER → 2020-03-26 11:25 | Outpatient (CLI) | payer MEDICARE, MEDICAID, SELFPAY ==
[2019-03-20 14:33] VITALS: BMI 51.4
[2020-03-19 10:59] VITALS: BMI 54.9
--- NOTE | 2020-03-26 11:28 | BI_ITS ---
MAMMOGRAPHY - BILATERAL SCREENING REASON FOR EXAM: Female, 39 years old. Routine annual screening examination. PERTINENT HISTORY: Non-contributory. TECHNIQUE: Digital bilateral breast renato (3D mammographic acquisition) in the CC and MLO projections. 2-D mediolateral oblique (MLO) and craniocaudad (CC) views of both breasts were obtained. CAD: Full Field Digital Mammography with Computer Added Detection was performed. COMPARISON: None. Baseline examination. FINDINGS: Breast Composition: The breasts are almost entirely fatty. There are no dominant masses or suspicious calcifications. A PowerPort is seen in the left axillary region. No other significant abnormalities are identified. There has been no significant change since the prior study. BI/SCRN MAMM (CAD)W/RENATO BILAT IMPRESSION: Stable bilateral screening mammogram. Yearly follow-up mammogram recommended. (A) ASSESSMENT CATEGORY: BIRADS Category 1: Negative. A letter regarding these results will be sent to the patient by the facility within 30 days. Approximately 10% of breast cancers are not detected by mammography. A normal mammogram should not delay biopsy of a clinically suspicious abnormality. [id number] Electronically Signed: Isaac Oliva MD at 14:06 EST , Service support ,
== END ==
PROVIDERS: PCP Internal Medicine; Referring Provider Obstetrics & Gynecology; Visit Provider Obstetrics & Gynecology
DX: Z12.31 Encounter for screening mammogram for malignant neoplasm of breast (principal)
CPT/HCPCS: 77063; 77067

== ENCOUNTER → 2020-04-19 18:16 | Outpatient (CLI) | payer MEDICARE, MEDICAID, SELFPAY | PROVIDERS: PCP Internal Medicine; Visit Provider Physician Assistant | DX: L03.311 Cellulitis of abdominal wall (principal) | CPT/HCPCS: 87070; 87077; 87186; 87205 ==

== ENCOUNTER 2020-04-27 13:48 | Outpatient (RCR) | payer MEDICARE, MEDICAID, SELFPAY ==
[2020-04-27] MEDS: COVID-19 VACC, MRNA(PFIZER)/PF 30 MCG/0.3 ML SYRINGE IM (11:42)
[2020-05-18] MEDS: COVID-19 VACC, MRNA(PFIZER)/PF 30 MCG/0.3 ML SYRINGE IM (17:55)
== END 2020-07-20 23:59 ==
LOC: IMMUN 13:48
PROVIDERS: PCP Internal Medicine; Visit Provider Family Medicine
DX: Z23 Encounter for immunization (principal)
CPT/HCPCS: 0001A; 0002A; 91300

== ENCOUNTER → 2020-11-20 14:21 | Outpatient (CLI) | payer MEDICARE, MEDICAID, SELFPAY | PROVIDERS: PCP Internal Medicine; Referring Provider Nurse Practitioner Family; Visit Provider Nurse Practitioner Family | DX: J02.9 Acute pharyngitis, unspecified (principal); J34.89 Other specified disorders of nose and nasal sinuses | CPT/HCPCS: 87635; U0005; U0003 ==

== ENCOUNTER 2021-07-13 15:35 | Outpatient (CLI) | payer MEDICARE, MEDICAID, SELFPAY ==
--- NOTE | 2021-07-13 13:15 | EMB_PTH ---
PATIENT: SHAQ NANCE LOC: [facility] U#:[id number] AGE/SX: 41/F ROOM: RE07/13/[address]: MADONNA Bhatt : 1980 BED: DIS: 07/13/2021 SPEC #: [id number] RECD: 07/13/21 15:20 STATUS: KEITH REDanny #: [id number] SANTIAGO: 07/13/21 13:[address]: Samantha Boggs NP DEPT: SURGICAL PATHOLOGY RECD BY: Funmilayo Flaherty ENTERED: 07/14/21 09:53 SP TYPE: ENDOM BX/C NIMA DR: Dr. Brodie Fernandes MD Tissues: Endometrium, NOS Procedures: Surgery Specimen Level IV HEADER OPERATION: Endometrial biopsy PRE-OP DIAGNOSIS: Abnormal uterine bleeding TISSUE SUBMITTED: Endometrial biopsy MICROSCOPIC DIAGNOSIS Endometrium, biopsy: Proliferative endometrium with minimal disorder and focal glandular breakdown. AM:michael 07/15/2021 MICROSCOPIC DESCRIPTION Slides are reviewed. GROSS DESCRIPTION Received is one container labeled with the patient's name and not further designated. The specimen consists of multiple irregular fragments of light moreno tissue that in aggregate measure 2 x 2 x 0.2 cm. The specimen is totally submitted in one cassette. / AM:michael 07/14/2021 TC:5 CPT: 36392
[2021-07-20 21:12] LABS: HPV APTIMA, High Risk Negative (Negative)
== END 2021-07-13 23:59 | disposition home or self-care (01) ==
PROVIDERS: PCP Internal Medicine; Visit Provider Nurse Practitioner Women's Health
DX: N93.9 Abnormal uterine and vaginal bleeding, unspecified (principal); Z12.4 Encounter for screening for malignant neoplasm of cervix
CPT/HCPCS: 87624; 88175; 88305; G0145

== ENCOUNTER → 2022-04-07 | Outpatient (CLI) | payer MEDICARE, MEDICAID, SELFPAY ==
--- NOTE | 2022-04-07 08:07 | MRI_ITS ---
STUDY: MRI LEFT ANKLE WITHOUT CONTRAST REASON FOR EXAM: Female, 41 years old. Injury. Pain. TECHNIQUE: Standardized fat and water weighted pulse sequences were obtained in all 3 orthogonal planes. COMPARISON: Ankle x-rays dated March 24, 2022 showing an oblique distal medial tibial fracture and avulsion fracture of the lateral malleolus. FINDINGS: Normal subcutis adipose space. Normal posterior tibialis tendon. Normal flexor digitorum longus tendon. Normal flexor hallucis longus tendon. Normal peroneus longus and brevis tendons. Normal tibialis anterior tendon. Normal extensor hallucis longus tendon. Normal extensor digitorum longus tendons. Normal Achilles tendon and teno-osseous insertion. Normal plantar fascia. Normal plantar calcaneal tubercles. Normal intrinsic muscles of the rearfoot. Normal distal tibiofibular syndesmotic ligamentous complex. Normal lateral ligamentous complex. Normal subtalar ligaments and sinus tarsi. Sprain of the deltoid ligamentous complex (coronal series 4 images 12-17). Normal plantar calcaneonavicular (spring) ligament. Extensive bone marrow edema and the distal tibia with oblique nondisplaced fracture of the base of the medial malleolus. Bone marrow edema in the fibular tip with small avulsion fracture (coronal series 4 images 10-20).. Both of these abnormalities can be seen on the radiographs. Nondisplaced posterior malleolar fracture which was not seen on the radiographs (sagittal series 6 images 10-14). Bone marrow edema in the head of the talus extending into the talar neck (sagittal series 6 images 12-). Metallic artifact from anchor within the cuboid. Mild arthrosis of the subtalar joint (sagittal series 6 images 11-15). MRI/Lower Ext Joint Only (Routine) IMPRESSION: Strain of the deltoid ligament. Extensive bone marrow edema in the distal tibia with oblique nondisplaced fracture of the base of the medial malleolus. Nondisplaced fracture of the posterior malleolus as described. Bone marrow edema in the distal fibular with small avulsion fracture of the fibular tip as described. Bone marrow edema in the head and neck of the talus. Mild arthrosis of the subtalar joint. Metallic artifact from cuboid anchor placement. Electronically Signed: Brian Pastrana, at 13:38 EST ,
== END | disposition home or self-care (01) ==
LOC: MRI 07:59
PROVIDERS: PCP Internal Medicine; Referring Provider Physician Assistant; Visit Provider Physician Assistant
DX: S99.912A Unspecified injury of left ankle, initial encounter (principal)
CPT/HCPCS: 73721

== ENCOUNTER 2022-08-23 10:30 | Outpatient (RCR) | payer MEDICARE, MEDICAID, SELFPAY ==
--- NOTE | 2022-04-28 13:02 | HP.PTEVAL ---
Patient's Visit Information SHAQ NANCE is a 41 year old F referred to Physical Therapy by Dr. Kirill Ricks DO with a diagnosis of L ankle Fx 03/07/22. Date of Evaluation: 04/28/22 Physical Therapist: Fausto Mitchell PT, ATC - Visit Plan Frequency: 2-3x /Week Duration: 4-6 Weeks Plan: L ankle stretching and strengthening, gait training, balance and proprio, nustep, and HEP - Subjective DOI: 03/07/22. Pt reports she was walking in her driveway when she fell, which resulted in a L ankle fracture. Pt reports she was placed in a boot and was NWB'ing for approximately 6 weeks. Pt notes she is still wearing the boot at this time, but she is FWBing at this time. Pt was told to use the boot and a walker for the remainder of this week, and then she is allowed to progress to a brace and shoe. Pt reports she is still a little sore at times, but feels much better overall. No sleep difficulty at this time secondary to pain. 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 Pt reports she has stairs at her appt, and has to be able to negotiate them daily. Pt has not attempted stairs at this time. Pt denies tingling or numbness at this time. 3/10 pain while at rest, 5/10 pain at worst. - Pain L ankle Fx Pain Intensity (Out of 10): 3 Pain Intensity Range: 5 - Objective Neuro: B LE sensation is WNL to light touch. ROM: R ankle DF= 15, PF= 55 degrees; L ankle DF= 0, PF= 40 degrees. MMT: R ankle DF= 40, PF= 47 #F; L ankle DF= 10, PF= 20 #F. Girth: B ankles 50 cm. Gait: Pt is able to ambulate 150 feet with WW and no difficulty - Balance/Special Test Scores Lower Extremity Functional Score: 22 - Goals Goal 1:: Decrease L ankle pain x 50% to aid with gait Goal Time Frame: 4-6 Weeks Goal 2:: Increase L ankle strength x 10 #F to aid with stair negotiation Goal Time Frame: 4-6 Weeks Goal 3:: Increase L ankle DF ROM x 10 degrees to aid with restoring a normalized gait pattern Goal Time Frame: 4-6 Weeks Goal 4:: I with HEP Goal Time Frame: 4-6 Weeks - Rehabilitation Potential Physical Therapy Diagnosis: Pt has L ankle pain, weakness, and limited ROM secondary to L ankle Fx Rehabilitation Potential: Good - Anticipated Interventions Patient/Client Instruction: Educate patient on: Condition, Plan of Care For the Purpose of:: To improve self management Therapeutic Exercise to Include: Strength training, Endurance training, Balance training, Flexibilty training, Gait and locomotor training, Active ROM, Dynamic Lumbar Stabilization For the Purpose of:: To decrease pain, To increase ROM, To improve muscle performance and motor function Cryotherapy (ice pack, ice massage): Yes For the Purpose of:: To decrease pain Thank you for the opportunity to evaluate your patient. For Medicare and Medicare HMO plans, please review the plan of care and approve it. It will need to be FAXED BACK to us at [phone] for Medicare purposes. For Medicare only, by signing this I certify the plan of care. Please let me know if there are questions or concerns regarding this plan of care. Physician Signature: Date:
--- NOTE | 2022-05-31 13:23 | HP.PTREVAL ---
Dr. Kirill Ricks, DO, It has been my pleasure to treat SHAQ NANCE over the last 8 visits for L ankle Fx 03/07/22. Please see the progress note below for an update on the physical therapy plan of care! Subjective: Pt reports she just returned from doctors. Fracture is not healed, and she is going to be put on a bone stimulator Objective/Function: L ankle pain is 5/10. Pt continues to have significant difficulty with stair negotiation. L ankle DF= 2 degrees. L ankle MMT: DF= 31, PF= 15, INV= 9, ever= 8 #F Plan Plan: Cont to progress as tolerated. Pt must perform all wieghtbearing ex's in boot for now secondary to fracture not being healed Balance/Gait/Functional tests - Balance/Special Test Scores Lower Extremity Functional Score: 22 Goals Goal 1:: Decrease L ankle pain x 50% to aid with gait Goal Time Frame: 4-6 Weeks Goal Progress: Not Progressing Goal 2:: Increase L ankle strength x 10 #F to aid with stair negotiation Goal Time Frame: 4-6 Weeks Goal Progress: Progressing Goal 3:: Increase L ankle DF ROM x 10 degrees to aid with restoring a normalized gait pattern Goal Time Frame: 4-6 Weeks Goal Progress: Progressing Goal 4:: I with HEP Goal Time Frame: 4-6 Weeks Goal Progress: Progressing Anticipated Interventions Patient/Client Instruction: Educate patient on: Condition, Plan of Care For the Purpose of:: To improve self management Therapeutic Exercise to Include: Strength training, Endurance training, Balance training, Flexibilty training, Gait and locomotor training, Active ROM, Dynamic Lumbar Stabilization For the Purpose of:: To decrease pain, To increase ROM, To improve muscle performance and motor function Cryotherapy (ice pack, ice massage): Yes For the Purpose of:: To decrease pain Please do not hesitate to contact me at [phone] by phone or if you have questions or concerns regarding this new plan of care! Sincerely, Fausto Mitchell, PT, ATC
--- NOTE | 2022-06-28 14:55 | HP.PTREVAL ---
Dr. Kirill Ricks, DO, It has been my pleasure to treat SHAQ NANCE over the last 13 visits for L ankle Fx 03/07/22. Please see the progress note below for an update on the physical therapy plan of care! Subjective: I see the doctor on Sunday Objective/Function: L ankle pain 5/10 at rest, 6/10 at worst. L MMT: DF= 29, PF= 22, Inv= 12, Ever= 15 #F. L ankle ROM: DF= 7 degrees. Pt is progressing with all but pain at this time. Plan Plan: Cont after DrMk visit Balance/Gait/Functional tests - Balance/Special Test Scores Lower Extremity Functional Score: 19 Goals Goal 1:: Decrease L ankle pain x 50% to aid with gait Goal Time Frame: 4-6 Weeks Goal Progress: Not Progressing Goal 2:: Increase L ankle strength x 10 #F to aid with stair negotiation Goal Time Frame: 4-6 Weeks Goal Progress: Progressing Goal 3:: Increase L ankle DF ROM x 10 degrees to aid with restoring a normalized gait pattern Goal Time Frame: 4-6 Weeks Goal Progress: Progressing Goal 4:: I with HEP Goal Time Frame: 4-6 Weeks Goal Progress: Progressing Anticipated Interventions Patient/Client Instruction: Educate patient on: Condition, Plan of Care For the Purpose of:: To improve self management Therapeutic Exercise to Include: Strength training, Endurance training, Balance training, Flexibilty training, Gait and locomotor training, Active ROM, Dynamic Lumbar Stabilization For the Purpose of:: To decrease pain, To increase ROM, To improve muscle performance and motor function Cryotherapy (ice pack, ice massage): Yes For the Purpose of:: To decrease pain Please do not hesitate to contact me at [phone] by phone or if you have questions or concerns regarding this new plan of care! Sincerely, Fausto Mitchell, PT, ATC
--- NOTE | 2022-07-27 11:33 | HP.PTREVAL ---
Dr. Kirill Ricks, DO, It has been my pleasure to treat SHAQ NANCE over the last 19 visits for L ankle Fx 03/07/22. Please see the progress note below for an update on the physical therapy plan of care! Subjective: I am getting better, but I am really sore and I feel like i am weak Objective/Function: L ankle pain is 4/10 currently, increases to 6/10 at worst. MMT: L ankle DF= 10, PF= 13 #F. L ankle DF ROM 14 degrees. Pt is able to ambulate 170 feet until needing to rest secondary to L ankle fatigue and pain. Pt is progressing well with ROM and strength, but continues to have high pain and demonstrates functional weakness at this time Plan Plan: Attempt to get 18 more visits approved to focus on pain reduction and L ankle strengthening Balance/Gait/Functional tests - Balance/Special Test Scores Lower Extremity Functional Score: 23 Goals Goal 1:: Decrease L ankle pain x 50% to aid with gait Goal Time Frame: 4-6 Weeks Goal Progress: Progressing Goal 2:: Increase L ankle strength x 10 #F to aid with stair negotiation Goal Time Frame: 4-6 Weeks Goal Progress: Not Progressing Goal 3:: Increase L ankle DF ROM x 10 degrees to aid with restoring a normalized gait pattern Goal Time Frame: 4-6 Weeks Goal Progress: Goal Met Goal 4:: I with HEP Goal Time Frame: 4-6 Weeks Goal Progress: Progressing Goal 5:: Pt will be able to ambulate 600 feet without taking breaks to aid with community ambulation Goal Time Frame: 4-6 Weeks Goal Progress: New goal Anticipated Interventions Patient/Client Instruction: Educate patient on: Condition, Plan of Care For the Purpose of:: To improve self management Therapeutic Exercise to Include: Strength training, Endurance training, Balance training, Flexibilty training, Gait and locomotor training, Active ROM, Dynamic Lumbar Stabilization For the Purpose of:: To decrease pain, To increase ROM, To improve muscle performance and motor function Cryotherapy (ice pack, ice massage): Yes For the Purpose of:: To decrease pain Please do not hesitate to contact me at [phone] by phone or if you have questions or concerns regarding this new plan of care! Sincerely, Fausto Mitchell, PT, ATC
== END 2022-08-23 19:00 | disposition home or self-care (01) ==
LOC: PT 10:30
PROVIDERS: PCP Internal Medicine; Referring Provider Orthopaedic Surgery; Visit Provider Orthopaedic Surgery
DX: S82.892D Other fracture of left lower leg, subsequent encounter for closed fracture with routine healing (principal)
CPT/HCPCS: 97035; 97110; 97140; 97161; 97164

== ENCOUNTER 2022-10-08 15:41 | Emergency (ER) | payer MEDICARE, MEDICAID, SELFPAY ==
[2022-10-08 15:42] VITALS: BP 141/88; PULSE 80; RESP 18; TEMP 35.9; O2SAT 100; BMI 55.4
--- NOTE | 2022-10-08 17:40 | EX.ED.DYSGE1 ---
HPI <MADONNA Ford - Last Filed: 10/08/22 18:11> History of Present Illness Chief Complaint: Headache Narrative Narrative: Patient 42-year-old female with history of gastric bypass, asthma, morbid obesity, anxiety, depression who presents to the emergency department for headache. Patient 2 days ago was working when she struck the back of her head on a door. Patient denies any LOC. Patient is currently on any blood thinners. Patient states throughout the day, she started having a headache, felt slightly dizzy and went home. She did get seen at [facility] who diagnosed her with a concussion. Patient states that he told her to come to the emergency department if she has worsening headache or dizziness. Patient states she still does have a significant headache to the back of her head where she was struck. She does have history of migraines this is different. She denies any nausea or vomiting. She does have some intermittent dizziness. [facility] <MADONNA Ford - Last Filed: 10/08/22 18:11> [facility] Medical History Acute pharyngitis, unspecified Anemia Ankle fracture Anxiety and depression ASCUS of cervix with negative high risk HPV Colitis History of alcohol abuse History of heroin abuse Low grade squamous intraepithelial lesion (LGSIL) Migraine depression Preeclampsia SBO (small bowel obstruction) Schizoaffective disorder Thyroid disease URI (upper respiratory infection) URI (upper respiratory infection) Home Medications buspirone 10 mg tablet 20 mg PO BID anxiety 11/24/12 [History Last Taken 03/03/19 one] vilazodone 40 mg tablet 40 mg PO DAILY depression 11/24/12 [History Last Taken 03/03/19 one] vortioxetine 20 mg tablet (Trintellix) 20 mg PO DAILY depression 06/26/18 [History Last Taken 03/03/19 21:00] levothyroxine 125 mcg tablet (Synthroid) 125 mcg PO DAILY Hypothyroid 07/26/18 [History Last Taken 03/04/19 0700] ergocalciferol (vitamin D2) 1,250 mcg (50,000 unit) capsule 50,000 unit PO Q7D 02/26/19 [History Last Taken 03/03/19] Allergy/AdvReac Type Severity Reaction Status Date / Time prednisone Allergy Mild shortness Verified 10/08/22 15:43 of breath celecoxib [From Celebrex] Allergy Unknown Verified 10/08/22 15:43 lamotrigine [From Lamictal] Allergy Rash Verified 10/08/22 15:43 methylprednisolone Allergy Rash Verified 10/08/22 15:43 [From Medrol] morphine Allergy Itching Verified 10/08/22 15:43 codeine AdvReac Vomiting Verified 10/08/22 15:43 diclofenac sodium AdvReac Other Verified 10/08/22 15:43 [From Voltaren] gabapentin [From Neurontin] AdvReac Chest Verified 10/08/22 15:43 tightness meloxicam AdvReac Nausea/Vom/ Verified 10/08/22 15:43 Diarrhea nortriptyline HCl AdvReac Other Verified 10/08/22 15:43 [From Pamelor] Family History Other CVA (cerebral vascular accident) Heart disease Surgical History Gastric bypass status for obesity H/O eye surgery H/O foot surgery H/O hernia repair H/O shoulder surgery History of tonsillectomy Hx of cholecystectomy Port catheter in place s/p small bowel surgery Social History adopted: Yes Smoking Status: Never smoker alcohol intake: former year quit: 2013 details: recovering since 2013 substance use type: former substance user Date of last use: 2009, heroin and opiates caffeine: No what type of physical activity do you participate in: walking frequency: 3-4 times per week seatbelt use: always do you feel safe at home: Yes additional social history: -Yared QUINONEZ <MADONNA Ford - Last Filed: 10/08/22 18:11> ROS ED ROS Narrative Constitutional: Negative for fever, chills, weight loss, weakness Eyes: Negative for vision loss, vision change, double vision ENT: Negative for any sore throat, ear pain, congestion Cardiovascular: Negative for any chest pain, tightness, palpitations Respiratory: Negative for any cough, sputum production, hemoptysis, dyspnea, dyspnea on exertion, orthopnea Gastrointestinal: Negative for any abdominal pain, nausea, vomiting, diarrhea, constipation, blood in stool, blood in vomit : Negative for any urinary frequency, dysuria, retention, blood in urine Muscle skeletal: Negative for any muscle joint pain, stiffness, myalgias, arthralgias, neck pain, back pain Neurological: Negative for any syncope, numbness or tingling. Positive for headache. Positive for dizziness Skin: Negative for any rashes, lumps, itching, abrasions, lacerations Psychiatric: Negative for any depression, anxiety, stress, suicidal ideation, homicidal ideation Hematologic: Negative for any easy bruising, excessive bruising, easy bleeding Allergies: Negative for any eczema, hives, rash EXAM <MADONNA Ford - Last Filed: 10/08/22 18:11> Physical Exam Narrative Exam Narrative: Vital signs reviewed. HEET: Head normocephalic atraumatic, TMs clear bilaterally. Posterior pharynx is clear, moist mucous membranes. Nares clear bilaterally. Pupils are equal round reactive to light, negative for any hemotympanum, negative for any schultz sign, negative for any septal hematoma. Neck: Supple with no lymphadenopathy or tenderness. No signs of meningismus, negative jolt sign. Cardiac: Regular rate and rhythm no murmurs gallops or rubs, equal peripheral pulses bilaterally. Respiratory: Lungs clear to auscultation bilaterally. No chest tenderness. Abdomen: Soft, nontender, nondistended. No abdominal bruit or pulsatile masses. No hepatosplenomegaly Extremities: No peripheral edema, no signs of gross trauma or deformity. Active full range of motion of all extremities. Neuro: Cranial nerves II through XII intact, no focal neurological deficits. Skin: Clean dry and intact with no rash, purpura, petechiae, vesicles or pustules. Backs/flank: No CVA tenderness, no midline spinal tenderness, no deformity. Psych: Normal mood and affect. No SI, HI or acute psychosis. Const Vital Signs: 10/08/22 15:42 Temperature 96.7 F L Temperature Source Temporal Pulse Rate 80 Respiratory Rate 18 Blood Pressure 141/88 H Blood Pressure Mean 105 Pulse Ox 100 <Dr. Miller Cristobal MD - Last Filed: 10/08/22 23:41> Physical Exam Const Vital Signs: 10/08/22 15:42 Temperature 96.7 F L Temperature Source Temporal Pulse Rate 80 Respiratory Rate 18 Blood Pressure 141/88 H Blood Pressure Mean 105 Pulse Ox 100 [facility] <MADONNA Ford - Last Filed: 10/08/22 18:11> [facility] Treatment and Re-Evaluation :: Patient appears generally well, patient appears nontoxic, vital signs are stable. Patient presents to the emergency department after striking the back of her head 2 days ago at work. Patient's physical examination was grossly unremarkable, patient had negative neurological exam. According to the [place] CT head rules, the patient does not require CT scan of the brain. I do believe this is appropriate. The patient is understanding. Patient will continue taking ibuprofen, Tylenol. Patient will follow-up with her PCP. She was given strict return precautions. <Dr. Miller Cristobal MD - Last Filed: 10/08/22 23:41> [facility] Narrative Medical decision making narrative: I have personally performed a face to face assessment of the patient and have reviewed the SERA Note. I performed a substantive portion of the visit including all aspects of the following. My odonnell findings include: History is remarkable for blunt head trauma. There is no loss conscious. She was seen at urgent care. Because she had persistent symptoms she was told to come to the emergency department. Exam is unremarkable. GSF is 15. Motor or sensory intact. DTR symmetric no clonus Babinski. Gait observed and normal. Alert oriented x3. Medical Decision Making based on the [place] CT head rule and the [place] rule imaging of the head is not indicated. Patient's symptoms are consistent with concussion and she specifically has postconcussive syndrome. She was told that 99% of patients to have a concussion there is symptoms will resolve within 4 to 6 weeks. Some much shorter some are longer than 6 weeks. Other additions or changes: [None] Discharge Plan Triage Chief Complaint: Headache ED Midlevel Provider: Freddie Frye ED Provider: Miller Cristobal Dx/Rx/DC Orders Clinical Impression: Concussion, Head injury Instructions: After a Concussion, ED Concussion Prescriptions: No Action Trintellix 20 mg tablet 20 mg PO DAILY levothyroxine [Synthroid] 125 mcg tablet 125 mcg PO DAILY buspirone 10 MG tablet 20 mg PO BID Patient Comments: anxiety vilazodone 40 MG tablet 40 mg PO DAILY Patient Comments: depression ergocalciferol (vitamin D2) 50,000 UNIT capsule 50,000 unit PO Q7D Primary Care Provider: Brodie Fernandes Referrals: Brodie Fernandes MD [Primary Care Provider] - Activity Restrictions/Additional Instructions: Please return for any worsening symptoms. Disposition Disposition: Home, Self Care Discharge Date/Time: 10/08/22 18:27
== END 2022-10-08 18:27 | disposition home or self-care (01) ==
PROVIDERS: Emergency Provider Emergency Medicine; PCP Internal Medicine; Visit Provider Emergency Medicine
DX: S06.0X0A Concussion without loss of consciousness, initial encounter (principal); E66.01 Morbid (severe) obesity due to excess calories; W22.09XA Striking against other stationary object, initial encounter
CPT/HCPCS: 99282

== ENCOUNTER 2023-10-15 12:08 | Emergency (ER) | payer MEDICARE, MEDICAID, SELFPAY ==
[2023-10-15 12:08] VITALS: BP 132/98; PULSE 77; RESP 14; TEMP 36.6; O2SAT 100; BMI 56.1
[2023-10-15 12:22] VITALS: O2SAT 100
--- NOTE | 2023-10-15 12:22 | EKG12_ITS ---
Test Reason : CHEST TIGHTNESS Blood Pressure : / mmHG Vent. Rate : 070 BPM Atrial Rate : 070 BPM P-R Int : 160 ms QRS Dur : 062 ms QT Int : 416 ms P-R-T Axes : 026 -06 008 degrees QTc Int : 449 ms Normal sinus rhythm Low voltage QRS Nonspecific T wave abnormality Abnormal ECG Confirmed by EDWIGE CRAIN, PABLO ([id number]), slot editor ANAMARIA BALDERRAMA ([id number]) on 10/16/2023 1:13:37 PM Referred By: BB Confirmed By:PABLO GIBBONS MD
--- NOTE | 2023-10-15 12:24 | ED.VIS.CHEST ---
HPI History of Present Illness Chief Complaint: Chest Pain Informant: patient Narrative Narrative: 43-year-old female presenting with multiple symptoms; left-sided chest discomfort for the past week, lightheadedness all morning, and tingling for the last several hours in her left cheek and her left hand. She states she woke up with the chest discomfort today and has been there all morning for more than 6 hours, but it was just off and on and less prolonged all week, but daily. She talk to her doctor about it and they said if he got worse to go to the ER which is why she is here now. She states incidentally, she has this tingling which is new without any weakness in her hand or arm, and feeling lightheaded which occurred since getting out of bed this morning. She denies any vertiginous/disequilibrium symptoms. PE Risk Factors: Negative for Recent Travel/Surgery, Recent Immobilization or Prior DVT or PE [facility] Medical History Acute pharyngitis, unspecified Anemia Ankle fracture Anxiety and depression ASCUS of cervix with negative high risk HPV Colitis History of alcohol abuse History of heroin abuse Low grade squamous intraepithelial lesion (LGSIL) Migraine depression Preeclampsia SBO (small bowel obstruction) Schizoaffective disorder Thyroid disease URI (upper respiratory infection) URI (upper respiratory infection) Home Medications ?Medication ?Instructions ?Recorded ?Last Taken ?Type buspirone 10 mg tablet 20 mg PO BID anxiety 11/24/12 03/03/19 History one vilazodone 40 mg tablet 40 mg PO DAILY depression 11/24/12 03/03/19 History one vortioxetine 20 mg tablet 20 mg PO DAILY depression 06/26/18 03/03/19 21:00 History (Trintellix) levothyroxine 125 mcg tablet 125 mcg PO DAILY Hypothyroid 07/26/18 03/04/19 History (Synthroid) 0700 ergocalciferol (vitamin D2) 1,250 50,000 unit PO Q7D 02/26/19 03/03/19 History mcg (50,000 unit) capsule amoxicillin 500 mg tablet 500 mg PO TID #30 tabs 05/07/23 Unknown Rx Allergy/AdvReac Type Severity Reaction Status Date / Time prednisone Allergy Mild shortness Verified 10/15/23 12:09 of breath celecoxib (From Celebrex) Allergy Unknown Verified 10/15/23 12:09 lamotrigine (From Lamictal) Allergy Rash Verified 10/15/23 12:09 methylprednisolone (From Allergy Rash Verified 10/15/23 12:09 Medrol) morphine Allergy Itching Verified 10/15/23 12:09 codeine AdvReac Vomiting Verified 10/15/23 12:09 diclofenac sodium (From AdvReac Other Verified 10/15/23 12:09 Voltaren) gabapentin (From Neurontin) AdvReac Chest Verified 10/15/23 12:09 tightness meloxicam AdvReac Nausea/Vom/ Verified 10/15/23 12:09 Diarrhea nortriptyline HCl (From AdvReac Other Verified 10/15/23 12:09 Pamelor) Family History Other CVA (cerebral vascular accident) Heart disease Surgical History s/p small bowel surgery Gastric bypass status for obesity Port catheter in place H/O foot surgery H/O shoulder surgery H/O eye surgery History of tonsillectomy H/O hernia repair Hx of cholecystectomy Social History adopted: Yes Smoking Status: Never smoker alcohol intake: former year quit: 2013 details: recovering since 2013 substance use type: former substance user Date of last use: 2009, heroin and opiates caffeine: No what type of physical activity do you participate in: walking frequency: 3-4 times per week seatbelt use: always do you feel safe at home: Yes additional social history: -Yared ROS ROS ED Constitutional Constitutional ED: Denies chills or fever(s) Eyes Eyes: Denies change in vision or diplopia ENT ENT ED: Denies rhinorrhea or sore throat Cardiovascular Cardiovascular: Reports as per HPI, chest pain and lightheadedness; Denies palpitations, radiating jaw, neck or arm pain or syncope Respiratory/Chest Respiratory/Chest: Denies cough or dyspnea Gastrointestinal Gastrointestinal: Denies abdominal pain, diarrhea, nausea or vomiting Genitourinary Genitourinary ED: Denies dysuria or hematuria Musculoskeletal Musculoskeletal: Denies back pain or neck pain Integumentary Denies abscess or rash Neurologic Neurologic: Reports paresthesias; Denies headache(s) or weakness Psychiatric Psychiatric: Denies anxiety or suicidal thoughts EXAM Physical Exam Const Vital Signs: 10/15/23 12:08 10/15/23 12:20 10/15/23 12:22 Temperature 98 F Temperature Source Temporal Pulse Rate 77 Respiratory Rate 14 Respiratory Effort Normal Non-Labored Blood Pressure 132/98 H Blood Pressure Mean 109 Pulse Ox 100 100 Oxygen Delivery Method Room Air Room Air 10/15/23 13:35 Temperature Temperature Source Pulse Rate 60 Respiratory Rate 18 Respiratory Effort Blood Pressure 133/74 H Blood Pressure Mean 93 Pulse Ox 99 Oxygen Delivery Method Room Air Positive well nourished, well developed and obese General Appearance ED: well developed and NAD Nutritional Appearance: obese HEENT Reports moist mucous membranes normocephalic and atraumatic Eyes PERRL and EOMs intact bilaterally Neck full ROM, supple and no JVD Resp normal respiratory effort and clear to auscultation bilaterally Cardio regular rate, regular rhythm and no murmurs GI non-tender and non-distended Auscultation: normoactive bowel sounds Palpation: soft Back/Spine no CVA tenderness General Back: other FROM Extremity normal to inspection General Extremety ED: Negative for edema, pulses abnormal or tenderness General Extremity: Negative for edema or pulses abnormal Neuro oriented x3, CN's II-XII intact bilaterally and no sensory deficits noted Sensorium / Orientation: awake and alert Motor Exam: strength 5/5 throughout Skin no rashes or lesions noted and no wounds Heart Score History: Slightly/Non-Suspicious ECG: Normal Age: </= 45 years Risk Factors: 1 or 2 Risk Factors Troponin: </= Normal Limit Score: 1 MDM MDM MDM Narrative Medical decision making narrative: Patient with atypical discomfort, she is also tingling in her left hand but it is only fingers 1-3, I do not think this is TIA or stroke and I do not think she needs a head CT as she has no weakness. I think this is referred discomfort from what ever is causing her chest discomfort. She has been having the discomfort for over 6 hours so I did a single troponin which was less than 3, so no further measurements of troponin are warranted emergently especially in context of a normal EKG. In addition her PERC score is 0, ruling out pulmonary embolus without further need for emergent testing, and considering esophageal etiologies since her two-view chest x-ray is normal on my interpretation, I gave her a GI cocktail she said it did not do anything. Therefore esophageal spasm is in the differential, before discharge and going to give her a dose of Levsin to see if that helps, and she is advised to follow-up if her symptoms persist. Lab Data Attestation: I reviewed the patient's lab results. Labs: Laboratory Results - last 24 hr 10/15/23 12:55 WBC 7.1 RBC 4.03 L Hgb 11.1 L Hct 35.5 L MCV 88.1 MCH 27.5 MCHC 31.3 L RDW Std Deviation 48.9 H RDW Coeff of Penny 15.1 H Plt Count 328 MPV 9.5 Immature Gran % (Auto) 0.100 Neut % (Auto) 64.8 Lymph % (Auto) 24.7 Mora % (Auto) 7.6 Eos % (Auto) 2.1 Baso % (Auto) 0.7 Absolute Neuts (auto) 4.6 Absolute Lymphs (auto) 1.75 Nucleated RBC % 0 Sodium 140 Potassium 3.9 Chloride 108 H Carbon Dioxide 24.0 Anion Gap 8 BUN 10 Creatinine 0.54 L Estim Creat Clear Calc 191.45 Est GFR (MDRD) Af Amer 157 Est GFR (MDRD) Non-Af 130 BUN/Creatinine Ratio 18.6 Glucose 96 Calcium 8.3 L Troponin I High Sens < 3 L Radiography Diagnostic Testing: Clinical Impression(s) from Imaging Studies Chest X-Ray 10/15/23 12:35 IMPRESSION: No acute thoracic pathology. Electronically Signed: Beltran Mack MD at 12:50 EDT , Rhythm Strip Rhythm Strip: Sinus Rhythm Rate: 70 Ectopy: None EKG Initial EKG: Attestation: I personally reviewed and interpreted this EKG as follows: Interpretation: Sinus Rhythm and No Acute Injury Pattern Discharge Plan Triage Chief Complaint: Chest Pain ED Provider: Ortiz Sinclair Dx/Rx/DC Orders Clinical Impression: Left-sided chest pain, Lightheadedness Instructions: ED Chest Pain, Noncardiac Prescriptions: No Action Trintellix 20 mg tablet 20 mg PO DAILY levothyroxine [Synthroid] 125 mcg tablet 125 mcg PO DAILY amoxicillin 500 mg tablet 500 mg PO TID Qty: 30 0RF buspirone 10 MG tablet 20 mg PO BID Patient Comments: anxiety vilazodone 40 MG tablet 40 mg PO DAILY Patient Comments: depression ergocalciferol (vitamin D2) 50,000 UNIT capsule 50,000 unit PO Q7D Primary Care Provider: Brodie Fernandes Referrals: Brodie Fernandes MD [Primary Care Provider] - 3-5 Days if not improving Print Language: Georgian Disposition Disposition: Home, Self Care
--- NOTE | 2023-10-15 12:35 | RAD_ITS ---
STUDY: X-RAY CHEST REASON FOR EXAM: Female, 43 years old. Chest pain TECHNIQUE: Frontal and lateral views of the chest COMPARISON: 08/05/2014 FINDINGS: There is a left-sided port with its tip in the superior vena cava. The lungs are clear. There are no pleural effusions. There is no pneumothorax. The heart is normal in size. The visualized osseous structures are within normal limits. RAD/Chest PA and Lateral IMPRESSION: No acute thoracic pathology. Electronically Signed: Beltran Mack MD at 12:50 EDT ,
[2023-10-15] MEDS: Lidocaine 2% Viscous15 ML UDC 15 ML PO (12:52)
[2023-10-15] MEDS: 0.9% Normal Saline (500mL Bag) 500 ML 999 ML IV (12:52)
[2023-10-15] MEDS: Mag /Aluminum/Simeth WCH UDC 30 ML ORAL.SUSP PO (12:52)
[2023-10-15 13:21] LABS: Absolute Lymphocyte Count 1.75 X10^3/uL (0.83-4.51); Absolute Neutrophil Count 4.6 X10^3/uL (2.0-7.7); Anion Gap 8 (5-15); BUN 10 mg/dL (7-18); BUN/Creat Ratio 18.6 RATIO (10-20); Basophil# 0.05 X10^3/uL; Basophil% 0.7 % (0-1); Calcium,Total 8.3 mg/dL (8.5-10.1); Chloride 108 mmol/L (98-107); Creatinine, Serum 0.54 mg/dL (0.55-1.02); EST Glomerular Filtration Rate 130 mL/min (>60); Eosinophil# 0.15 X10^3/uL; Eosinophils% 2.1 % (0-5); Est Glom Filt Rate - Afr Amer 157 mL/min (>60); Estimated Creatinine Clearance 191.45 ml/min; Glucose 96 mg/dL (74-106); Hematocrit 35.5 % (37-47); Hemoglobin 11.1 g/dL (12.0-15.0); Lymphocyte # 1.75 X10^3/ul (0.83-4.51); Lymphocyte % 24.7 % (19-41); Mean Corp Hgb Conc 31.3 g/dL (32-36); Mean Corpuscular Hgb 27.5 pg (27.0-32.0); Mean Corpuscular Volume 88.1 fL (81-99); Mean Platelet Vol. 9.5 fl (6.2-12.0); Monocyte# 0.54 X10^3/uL; Monocyte% 7.6 % (0-10); NRBC Flagged by Analyzer 0 % (0-5); Neutrophil # 4.58 X10^3/uL (2.7-7.7); Neutrophil % 64.8 % (47-70); Platelet Count 328 K/mm3 (150-450); Potassium 3.9 mmol/L (3.5-5.1); RBC Distribution Width CV 15.1 % (11.6-14.6); RBC Distribution Width SD 48.9 fl (35.1-43.9); Red Blood Count 4.03 M/mm3 (4.2-5.4); Sodium Level 140 mmol/L (136-145); Troponin-I HS < 3 pg/mL (3.0-54.0); White Blood Count 7.1 K/mm3 (4.4-11.0)
[2023-10-15 13:35] VITALS: BP 133/74; PULSE 60; RESP 18; O2SAT 99
[2023-10-15 14:43] VITALS: BP 124/78; PULSE 72; RESP 18; TEMP 36.6; O2SAT 100
== END 2023-10-15 14:43 | disposition home or self-care (01) ==
PROVIDERS: Emergency Provider Emergency Medicine; PCP Internal Medicine; Visit Provider Emergency Medicine
DX: R07.9 Chest pain, unspecified (principal); R42 Dizziness and giddiness
CPT/HCPCS: 71046; 80048; 84484; 85025; 93005; 99283; A4216

== ENCOUNTER 2023-12-20 09:42 | Outpatient (RCR) | payer MEDICARE, MEDICAID, SELFPAY ==
--- NOTE | 2023-12-20 10:15 | BH.SGPN.GN ---
Behaviors/Verbalizations/Mental Status: []Client alert and oriented, casually dressed and groomed. Eye contact good. Motor activity appropriate. Speech within normal limits. Affect congruent, mood depressed. Thoughts linear, logical, no signs of hallucinations or delusions. Client Response/Progress/Benefit: [] Pt responded well to session, contributing to discussion and engaged during the activity. Group identified the benefits of change which included: better mental health, increased confidence, and improved relationships. Worked with the group to identify barriers to change, which included: uncomfortable emotions such as anxiety, lack of motivation, fear of failure, negative self-talk, and change not happening fast enough. Pt participated along with group in activity where they identified and discussed the emotions related to change. Pt discussed how even difficult emotions can push you to make meaningful change. Benefited from increased awareness and understanding of emotions, benefits, and barriers related to change. Will continue IOP tx to prevent decompensation, gain healthy coping skills, and improve daily functioning. Narrative Note: []
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
--- NOTE | 2023-12-20 11:15 | BH.SGPN.GN ---
Behaviors/Verbalizations/Mental Status: []Client alert and oriented, casually dressed and groomed. Eye contact good. Motor activity appropriate. Speech within normal limits. Affect congruent, mood depressed. Thoughts linear, logical, no signs of hallucinations or delusions. Client Response/Progress/Benefit: [] Pt responded well to session, attentive throughout. Did well to actively listen and contributed when prompted as group worked to process activity. Pt worked with group to relate the strategies used to overcome barriers in the activity to managing change in own life. Pt identified a change they would like to make is ?being more present with my kids.? Pt identified currently being in the preparation stage for this change. Pt said continuing to come to IOP can help pt get to the next stage. Appeared to benefit from identifying a change they want and how to progress. Pt will continue IOP tx to prevent decompensation, gain healthy coping skills, and improve social support. Narrative Note: []
--- NOTE | 2023-12-20 13:39 | BH.COMM ---
Communication Note Communication with Client Communication Note: Met with pt to complete initial paperwork and administer the CSSR-S screening and risk assessment. Pt is a moderate risk AEB pt?s report of having recent fleeting SI without plan or intent; but does have a hx of prior SI with thoughts of overdosing. Pt also has a history of multiple inpatient psychiatric hospitalizations between 4427-9853 and 2 prior overdose attempts (20 years ago). Pt denies any active SI today and reports her daughters as her projective factors. Pt does not have a history of self-harming. Provided lethal means counseling and pt understands the reasons to remove any excess medications. Pt reports ability to maintain safety today. Discussed case with Dr. Schmitz and pt will be admitted to [facility] tx with a diagnosis of MDD F33.2
--- NOTE | 2023-12-24 09:00 | BH.SGPN.GN ---
Behaviors/Verbalizations/Mental Status: [] Eye contact is good. Motor activity is appropriate. Appearance is casual. Speech is Appropriate. Mood is euthymic. Affect is full. Thoughts are linear and logical. No evidence of psychosis. Reviewed daily check in sheet and pt reports 2/5 for suicidal ideations and 0/5 for intent. This has been baseline since admission. Client Response/Progress/Benefit: [] Pt participated when prompted. Attentive. Daily symptom tracker notes 4/5 for anxiety and depression. Stressful morning. Shared very briefly. Stressors included continues discord with her . A win for her is that she has been able to take time away from work to help stabilize her mental health. No progress noted. Benefited from group support, encouragement, and feedback. Will continue in IOP to prevent decompensation, stabilize mood, and improve functioning. Narrative Note: []
--- NOTE | 2023-12-24 10:15 | BH.SGPN.GN ---
Behaviors/Verbalizations/Mental Status: []Client alert and oriented, casually dressed and groomed. Eye contact good. Motor activity appropriate. Speech within normal limits. Affect congruent, mood depressed. Thoughts linear, logical, no signs of hallucinations or delusions. Client Response/Progress/Benefit: [] Pt responded well to session AEB participating throughout group, primarily a passive participant but providing input when prompted. Pt was attentive throughout group activity discussing famous individuals and how they overcame failure to be successful. Pt helped group identify how fear of failure can impact mental health and relationships. Pt personally identified it leads to pt giving up and isolating. Participated in experiential activity, working with group members to problem solve. Appeared to benefit from increased knowledge of what causes fear of failure and how it impacts people. Will continue IOP tx to prevent decompensation, improve daily functioning, and reduce negative self-talk. Narrative Note: []
--- NOTE | 2023-12-24 11:15 | BH.SGPN.GN ---
Behaviors/Verbalizations/Mental Status: []Pt alert and oriented, casually dressed and groomed. Eye contact good. Motor activity appropriate. Speech within normal limits. Affect constricted, mood depressed. Thoughts linear, logical, no signs of hallucinations or delusions. Client Response/Progress/Benefit: [] Pt responded well to session, engaged in the experiential activity and attentive throughout group processing. Pt reported fear of failure has kept Pt from ?being free?. Pt completed fear of failure worksheet and was able to identify thoughts and behaviors that reinforce personal fear of failure including telling herself ?you?re not worth it? and having a ?why bother? attitude. Pt participated in small group discussion regarding strategies to overcome fear of failure. Identified wanting to work on taking little steps and talking through it. ?Appeared to benefit from increased knowledge of strategies to combat fear of failure and gaining self-awareness. Pt will continue IOP tx to prevent decompensation, improve daily functioning, and gain healthy coping skills. ? Narrative Note: []
--- NOTE | 2023-12-25 09:05 | BH.SGPN.GN ---
Behaviors/Verbalizations/Mental Status: [] Pt alert and oriented, neatly dressed and groomed. Eye contact good. Motor activity appropriate. Speech within normal limits. Affect flat, mood depressed and frustrated. Thoughts linear, logical, no signs of hallucinations or delusions. Reviewed pt?s symptom tracker, no risk for suicidal ideation, plan, or intent 12/25/23 Client Response/Progress/Benefit: []Pt was an active participant in group discussions. Attentive. Able to identify mental health wins including getting to sleep throughout the night and returning to IOP even though it is stressful. Pt's stressor today is my marriage. Pt reports her is doing things inside the marriage that he shouldn't be. Pt stated pt is feeling frustrated this morning. Pt receptive to feedback from peers which pt reported was helpful. Progress noted as pt did not share much last week and is talking more in group. Benefited from group support, encouragement, and feedback. Will continue in IOP to prevent decompensation, improve daily functioning, and increase distress tolerance skills. Narrative Note: []
--- NOTE | 2023-12-25 10:15 | BH.SGPN.GN ---
Behaviors/Verbalizations/Mental Status: []Pt alert and oriented, casually dressed and groomed. Eye contact fair. Motor activity appropriate. Speech within normal limits. Affect congruent, mood dysthymic. Thoughts linear, logical, no signs of hallucinations or delusions. Client Response/Progress/Benefit: [] Pt was attentive during psychoeducation and participated in group activity. Group discussed what contributes to a person?s perspective and how perspective can positively or negatively impact mental health treatment. Pt reflected on their perspective today and how it is impacting them. Pt shared her perspective towards IOP treatment is moving towards positive and is starting to feel hopeful she can get better. Pt shared her perspective towards her relationship is negative. Pt appeared to benefit from increasing awareness of different perspectives and how they can affect mental health. Pt will continue IOP tx to challenge negative/distorted thoughts, increase consistent use of healthy coping skills, and prevent decompensation.
--- NOTE | 2023-12-25 11:18 | BH.SGPN.GN ---
Behaviors/Verbalizations/Mental Status: []Pt alert and oriented, casually dressed and groomed. Eye contact good. Motor activity appropriate. Speech within normal limits. Affect congruent, mood depressed. Thoughts linear, logical, no signs of hallucinations or delusions. Client Response/Progress/Benefit: []Pt was attentive and contributed to group discussion. Pt worked with group to identify strategies that can help with challenging negative perspective. Pt stated she can change her routine as a way to challenge negative perspective. Pt completed strengths exploration worksheet, identifying his personal strengths. Pt able to acknowledge how these strengths are helping pt and can continue to help pt in mental health journey. Pt identified wanting to work on leaning on strength of creativity and to practice skill of creative problem-solving. Benefited from identifying personal strengths and strategies for enhancing use of identified strengths. Pt will continue IOP tx to continue practice healthy coping skills, build confidence, and prevent decompensation. Narrative Note: []
--- NOTE | 2023-12-26 10:15 | BH.SGPN.GN ---
Behaviors/Verbalizations/Mental Status: []Eye contact is good. Motor activity is appropriate. Appearance is casual. Speech is Appropriate. Mood is depressed and anxious. Affect is congruent. Thoughts are linear and logical. No evidence of psychosis. Client Response/Progress/Benefit: [] Pt was engaged and participating throughout, providing input and taking notes. Participated in an interactive discussion on defining anxiety and identifying cognitive and physiological symptoms of anxiety. The group discussed the role of anxiety on isolation, avoidance, and who this emotion impacts their ability to start and complete activities/goals. Pt identified their physical/physiological signs of anxiety (i.e. shaking, headaches, and stomach issues). Pt identified safety behaviors (i,e avoidance, canceling, and isolation.) Benefited from increased awareness and insight on anxiety and its impact. Will continue in IOP to prevent decompensation, gain healthy coping skills, and improve daily functioning. Narrative Note: []
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
--- NOTE | 2023-12-26 13:00 | BH.DR.ITP ---
Initial Treatment Plan Patient Information Visit Information: ADMISSION DATE: EXPECTED LOS: 4-6 weeks Problems/Symptoms Problem #1:: Depression Symptom:: Sadness, hopelessness, worthlessness, guilt, anhedonia, low energy, decreased concentration, passive thoughts of , isolation Problem #2:: Anxiety Symptom:: Worry, rumination, avoidance, hypervigilance, flashbacks
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
--- NOTE | 2023-12-28 09:00 | BH.SGPN.GN ---
Behaviors/Verbalizations/Mental Status: [] Client alert and oriented, casual appearance. Eye contact fair.. Motor activity appropriate. Speech within normal limits. Affect congruent, mood euthymic. Thoughts linear, logical, no signs of hallucinations or delusions. Reviewed client's symptom tracker, no risk for suicidal ideation, plan, or intent. Client Response/Progress/Benefit: [] Client responded well to session AEB listening to others and sharing thoughts/feelings. 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 Client stated additional mental health positive as her daughter saying I love you to her which is something her daughter doesn't often say. Client reported current stressor is trying to adjust to new medication and is worried she won't be able to return to work next week as planned. Client appeared to benefit from support from peers. Will continue IOP tx to challenge negative thoughts, increase healthy coping skills, and prevent decompensation.
--- NOTE | 2023-12-28 10:15 | BH.SGPN.GN ---
Behaviors/Verbalizations/Mental Status: [] Eye contact is good. Motor activity is appropriate. Appearance is casual. Speech is Appropriate. Mood is depressed. Affect is flat. Thoughts are linear and logical. No evidence of psychosis. Client Response/Progress/Benefit: [] Pt participated at times during group discussions and group activities. This portion of group was very psychoeducation heavy and pt was attentive during psychoeducation. Engaged during activity in which they identified which type of foods (i.e. carbs, sugar, salt, fast food, caffeine, etc) they seek out when sad, tired, angry, stressed, anxious, etc. Pt was able to identify the impact that certain foods have on their mental health through group example which was beneficial. Benefited from increased awareness of the connection between nutrition and mental health. Will continue in IOP to prevent decompensation, stabilize mood, incresase healthy coping, and improve functioning. . Narrative Note: []
--- NOTE | 2023-12-28 11:15 | BH.SGPN.GN ---
Behaviors/Verbalizations/Mental Status: [] Client alert and oriented, casually dressed and groomed. Eye contact good. Motor activity appropriate. Speech within normal limits. Affect congruent, mood depressed. Thoughts linear, logical, no signs of hallucinations or delusions. Client Response/Progress/Benefit: []Client was an active participant throughout AEB contributing to group discussion and taking notes. Client provided input during small group discussion on strategies to combat each factor maintaining adverse nutritional cycles. Worked with group to identify ways to foster more mindful nutritional choices. Each group participant identified one small step they could take today to begin establishing mental wellness promoting nutritional choices. Client identified plans to begin making an effort to meal prep more frequently.?Appeared to benefit from gaining insight into mental wellness centered nutrition and identifying personal steps client can take to support own nutritional psychology. Recommended continued IOP tx to prevent decompensation, promote mood stability, and improve overall functioning.? Narrative Note: []
--- NOTE | 2023-12-31 09:05 | BH.SGPN.GN ---
Behaviors/Verbalizations/Mental Status: [] Eye contact is good. Motor activity is appropriate. Appearance is casual. Speech is Appropriate. Mood is euthymic. Affect is full. Thoughts are linear and logical. No evidence of psychosis. Reviewed daily check in sheet and pt reports 2/5 for suicidial ideations and 0/5 for intent. This has been baseline since admission. Client Response/Progress/Benefit: [] Pt participated when prompted. Attentive. Daily symptom tracker notes 5/5 for anxiety, depression, and irritability. ?No real wins ?. ?She reported side effect of dizziness which she believes is related to recent medication changes. She was able to ask for help from her mother regarding childcare however this led to thoughts and feelings of being a failure. Regression noted. Benefited from group support, encouragement, and feedback. Will continue in IOP to prevent decompensation, stabilize mood, and improve functioning. Narrative Note: []
--- NOTE | 2023-12-31 10:10 | BH.SGPN.GN ---
Behaviors/Verbalizations/Mental Status: [] Eye contact is fair. Motor activity is appropriate. Appearance is casual. Speech is Appropriate. Mood is anxious and depressed. Affect is constricted. Thoughts are linear and logical. No evidence of psychosis. Client Response/Progress/Benefit: [] Pt receptive of session, actively engaged throughout AEB taking notes, providing input, and contributing in small group discussion. Appeared to connect with group topic of automatic thoughts and cognitive distortions, as well as the impact of thought patterns on mental health, coping behaviors, and relationships. This particular group is very heavy on psychoeducation and pt appeared to connect with distortions and how they can impact functioning. Identified struggling with disqualifying the positives distortion. Pt appeared to benefit from gaining insight on distorted thinking patterns and how this impacts overall mental health. Will continue IOP to improve daily functioning, improve distress tolerance, and prevent decompensation.
--- NOTE | 2023-12-31 10:30 | BH.COMM ---
Communication Note Communication with Client Communication Note: Pt reported dizziness since medication changes last week. Per Dr. Dong notes on 12/26/23 The patient agrees to wean the Viibryd slowly as she has not had the dose change for 10 years and it is similar to Trintellix. She agrees to decrease her Viibryd from 40 mg to 20 mg p.o. daily for 2 weeks and then decrease to 10 mg p.o. daily for 1 week and then discontinue the medication. At the same time she decreases the Viibryd she will start Rexulti 0.5 mg p.o. daily Call placed to Dr. Dong. Suspects that dizziness is associated with tapering of Viibryd and recommended that pt increase her daily dose to 30mg daily and keep IOP staff informed on side effects. If dizziness resolves they will resume taper on 01/04/24. If dizziness does not resolve she may have to stop the Rexulti. Pt informed and agreeable.
--- NOTE | 2023-12-31 11:15 | BH.SGPN.GN ---
Behaviors/Verbalizations/Mental Status: [] Eye contact is good. Motor activity is appropriate. Appearance is casual. Speech is Appropriate. Mood is depressed and anxious. Affect is congruent. Thoughts are linear and logical. No evidence of psychosis. Client Response/Progress/Benefit: [] Pt was an active participant during group discussion. Pt was placed in a smaller group and participated in cognitive distortions jeopardy game with peers. Pt was engaged in the smaller group, participated in group interactions to brainstorm answers, and appeared to be comprehending cognitive distortions. Pt stated could connect with many of the distortions covered in group. Pt stated they now have knowledge on how cognitive distortions are affecting them negatively, and which distortions they specifically struggle with. Benefited from gaining further insight and awareness of cognitive distortions as well as practicing ways to reframe and challenge thoughts. Will continue in IOP tx to increase healthy thinking patterns, functioning, and improve self-worth. Narrative Note: []
--- NOTE | 2024-01-01 09:00 | BH.SGPN.GN ---
Behaviors/Verbalizations/Mental Status: []Pt alert and oriented, neatly dressed and groomed. Eye contact good. Motor activity appropriate. Speech within normal limits. Affect congruent. mood anxious. Thoughts linear, logical, no signs of hallucinations or delusions. Reviewed pt?s symptom tracker, no risk for suicidal ideation, plan, or intent 01/01/24 Client Response/Progress/Benefit: []Pt was an active participant in group discussions. Attentive. Able to identify mental health wins including being able to go into the hospital today without having a panic attack and plans to advocate for herself with her work. Pt's stressor today is that her mother is in the hospital and pt is feeling some dizziness side effects. Pt stated she is feeling dizzy this morning. Pt receptive to feedback from peers which pt reported was helpful. Progress noted. Benefited from group support, encouragement, and feedback. Will continue in IOP to prevent decompensation, improve daily functioning, and gain self-confidence. Narrative Note: []
--- NOTE | 2024-01-01 10:15 | BH.SGPN.GN ---
Behaviors/Verbalizations/Mental Status: [] Eye contact is fair. Motor activity is appropriate. Appearance is casual. Speech is Appropriate. Mood is depressed. Affect is conguent. Thoughts are linear and logical. No evidence of psychosis Client Response/Progress/Benefit: [] Pt engaged in session AEB listening attentively to others and providing input on occasion. Pt engaged in activity, able to connect how it can be uncomfortable and difficult to accept when things are out of one?s own control. Worked with peer group to identify things in life which are hard to accept which included; loss, medical diagnoses, change, lack of control, failure, and needing help. Seemed to benefit from increased awareness of the meaning as well as the importance of acceptance. Will continue in IOP to prevent decompensation, stabilize mood, increase health coping, and improve functioning. Narrative Note: []
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
--- NOTE | 2024-01-01 15:37 | BH.MDN ---
Multi-Disciplinary Note Note 30-min Individual: Time Started:: 12:04 Date: 01/01/24 Purpose of session/treatment goals addressed:: Purpose of session was to address current barriers impacting mood stability and maintaining depressive sx. Eye Contact:: Good Motor Activity:: Appropriate Appearance:: Casual Speech:: Appropriate Mood:: Anxious and Depressed Affect:: Congruent Thoughts:: Linear, Logical and No evidence of hallucinations/delusions noted Client Response:: Pt responded well to session, actively engaged throughout. Reports she was unable to complete the decisional balance homework regarding her marriage as she has been struggling with severe dizziness over the past week. Pt is working in coordination with program psychiatrist to determine whether the dizziness may be secondary to recent medication changes. Indicates that the dizziness has made it difficult to read or do much outside of sitting and resting. Noted that her has been willing to help pt some by driving her to and from IOP tx until her sx subside. Noted however that her mother has been doing the share of pt?s childcare and cooking responsibilities since sx began. Pt expressed some frustration her is not helping more but also justified the limited assistance with the fact the he has also started a new job. Noted that her has expressed fears her health will prevent her from returning to work and she therefore continues to plan to go into work tomorrow ?so he doesn?t say anything?. Did however indicate reaching out to her telecommunicator supervisor and being transparent about her current physical health issues. Notes that he telecommunicator supervisor was understanding and temporarily put pt in a role that would require her to do very little for short periods of time throughout the shift. Went on to note that she has not yet begun to read the affirmations created in previous session as she does not yet feel ready too. Additionally stated she is not yet willing to begin an accomplishment log to begin improving self-talk in that regard. Was however open to reminding herself daily that ?it?s okay to need help right now?, indicating that she often struggles with guilt in times she needs assistance. Will complete the decisional balance for homework this week. Risks/Concerns:: Pt denies SI, plan, or intent as of this date. Progress Toward Goals/Plan:: Progress limited. Pt current physical health issues are presenting a barrier to making consistent strides in getting back into activities she enjoys, as well as completing homework from prior session. Health issues are also requiring pt to rely on her more for help which causes some tension as well. Pt continues to be somewhat resistant to engaging in exercises aimed at improving self-compassion and positive self-talk which may impede progress moving forward. Continues to report sx of depression, hopelessness, and guilt. Pt recommended continued IOP tx to improve mood stability, prevent decompensation, and begin improving self-worth as well. Time Stopped:: 12:36
--- NOTE | 2024-01-04 09:00 | BH.SGPN.GN ---
Behaviors/Verbalizations/Mental Status: [] Eye contact is good. Motor activity is appropriate. Appearance is casual. Speech is Appropriate. Mood is depressed. Affect is congruent. Thoughts are linear and logical. No evidence of psychosis. Reviewed daily check in sheet and pt reports 1/5 for thoughts of and 0/5 for suicidal intent. Baseline since admission. Client Response/Progress/Benefit: [] Pt participated at times during group discussions. Attentive. Daily symptom tracker notes 5/5 for depression, anxiety, and irritability. ?I?m about the same?. Stressors continues to be dizziness. She is utilizing the support around her and believes that her as ?stepped up? as he is maintaining his job. ?I?ve got to allow others to help me?. Limited progress. Benefited from group support, encouragement, and feedback. Will continue in IOP to prevent decompensation, stabilize mood, and increase healthy coping. Narrative Note: []
--- NOTE | 2024-01-04 10:15 | BH.SGPN.GN ---
Behaviors/Verbalizations/Mental Status: []Pt alert and oriented, casually dressed and groomed. Eye contact good. Motor activity appropriate. Speech within normal limits. Affect congruent, mood content. Thoughts linear, logical, no signs of hallucinations or delusions. Client Response/Progress/Benefit: [] Pt took notes and contributed to group discussions. Attentive during psychoeducation on growth mindset. Participated during the activity. Interactive group discussion on growth mindset in which group verbalized their current fixed mindsets and how they affect their mental health. Pt shared common fixed mindset thoughts they have. These thoughts lead to feeling and staying stuck, not maintaining boundaries, and self-doubt. Pt stated they have personally struggled with fixed thoughts causing them to people please. Pt benefited from increased awareness of growth mindset and fixed thoughts and how fixed thoughts impact their mental health. Will continue IOP tx to prevent decompensation, improve daily functioning, and promote mood stability. Narrative Note: []
--- NOTE | 2024-01-04 11:10 | BH.SGPN.GN ---
Behaviors/Verbalizations/Mental Status: []Pt alert and oriented, casually dressed and groomed. Eye contact good. Motor activity appropriate. Speech within normal limits. Affect flat, mood depressed. Thoughts linear, logical, no signs of hallucinations or delusions. Client Response/Progress/Benefit: []Pt was an active participant during activity and discussion. Pt did well to remain attentive and participate as group worked on identifying characteristics and benefits of adopting a growth mindset. Worked with fellow participants in reframing the example fixed thoughts into growth mindset thoughts. Pt worked on changing own fixed thought and reframed the thought to ?I can start to like myself before loving myself and I deserve to be loved.? Pt also wants to work on using dialectical thinking. Pt appeared to benefit from challenging own thoughts and engaging in the activity. Pt will continue IOP tx to prevent decompensation, improve daily functioning, and increase use of healthy coping skills. Narrative Note: []
--- NOTE | 2024-01-07 09:00 | BH.SGPN.GN ---
Behaviors/Verbalizations/Mental Status: [] Eye contact is good. Motor activity is appropriate. Appearance is casual. Speech is Appropriate. Mood is content. Affect is full. Thoughts are linear and logical. No evidence of psychosis. Reviewed daily check in sheet and pt denies suicidal ideations and intent. Client Response/Progress/Benefit: [] Pt participated throughout. Attentive and providing supportive feedback to peers. Daily symptom tracker notes / for anxiety and depression, however self-reported feeling grateful today. Reports mental health wins as opposite action and attending a large AA event over the weekend in which she invited her to as well. Noted this turned out to be a positive as well as they have not gone on a date in some time. Current stressor reported as having an unexpected night terror last night. Reports she was able to calm herself and get back to sleep though which was a positive. Benefited from group support, encouragement, and feedback. Will continue in IOP to prevent decompensation, stabilize mood, and further improve functioning. Narrative Note: []
--- NOTE | 2024-01-07 10:15 | BH.SGPN.GN ---
Behaviors/Verbalizations/Mental Status: []Patient was alert and oriented, casually dressed and groomed. Eye contact good. motor activity congruent. speech within normal limits. Affect constricted, mood dysthymic. Thoughts linear, logical, no signs of hallucinations or delusion. Client Response/Progress/Benefit: []Pt participated in the group discussions AEB nodding and taking notes. Attentive during psychoeducation Goal Setting. Participated during the discussion on common barriers. Pt stated a personal barrier to accomplishing goals is self-sabotage. Group also identified benefits of goals as sense of purpose, improved self-confidence, more motivation for other goals, and improved mental health. Pt identified personal benefits to goal setting. Benefited from increased awareness of mental health benefits of goals as well as psychoeducation on SMART goal criteria. Will continue in IOP to increase use of healthy coping skills, challenge negative perspective, and prevent decompensation.
--- NOTE | 2024-01-07 11:10 | BH.SGPN.GN ---
Behaviors/Verbalizations/Mental Status: []Pt alert and oriented, casually dressed and groomed. Eye contact fair. Motor activity appropriate. Speech within normal limits. Affect constricted, mood anxious. Thoughts linear, logical, no signs of hallucinations or delusions. Client Response/Progress/Benefit: [] Pt was engaged during discussion and willing to complete the worksheet challenging them to develop a personal SMART goal. Pt chose the goal of to go to Thanksgiving instead of avoiding it this year. Pt stated feeling anxious and lack of motivation as barriers. Identified solutions of using grounding skills and opposite action. Benefited from this group by developing a short-term SMART goal related to mental health. Will continue IOP tx to prevent decompensation, increase use of healthy coping skills, and reduce negative self-talk. Narrative Note: []
--- NOTE | 2024-01-07 11:49 | BH.COMM ---
Communication Note Communication with Client Communication Note: Pt stopped Rexulti on 01/05/24 and communicated that her dizziness continues today telling staff it has not gotten better or worse. She also continues with the 30mg of Viibryd. According to pt dizziness subsides when she lays down and comes and goes throughout the day. It has made completing household responsibilities and driving difficult. She has relied on her mother and to help with driving her places and completing tasks. Pt has not presented as symptomatic here at IOP as she is engaged, attentive, walking w/o issue, and does engage in group experiential activities. She wants to remain in IOP despite dizziness. Called placed to Dr. Mccauley. She recommends that pt return to original 40mg dose of Viibryd. She is concerned the dizziness may be unrelated to medication changes as extended dizziness is not common with such a slow taper. Recommended that pt go to urgent care to get assessed and r/o any medical issues. Pt agreeable and plans to go to urgent care today.
--- NOTE | 2024-01-11 09:00 | BH.SGPN.GN ---
Behaviors/Verbalizations/Mental Status: [] Eye contact is good. Motor activity is appropriate. Appearance is casual. Speech is Appropriate. Mood is anxious. Affect is congruent. Thoughts are linear and logical. No evidence of psychosis. Reviewed daily check in sheet and no reports of suicidal ideations or intent Client Response/Progress/Benefit: [] Pt was an active participant in group discussions on video Effects of Mindfulness as well as on gaslighting in mental health. Daily symptom tracker notes 3/5 for depression and anxiety. Her dizziness has resolved. According to patient she went to her PCP and completed blood work as well. She was able to work this week. She skipped holiday meal with family yeterday due to her children being sick however she notes family thanksgiving in the past was often stressful. Believes that she has managed her depression and negative automatic thoughts effectively this week. Shared some mental health wins as well. Beneifted from group support, education, and feedback. Will continue in IOP to prevent decompensation, stabilize mood, and increase healthy coping. Narrative Note: []
--- NOTE | 2024-01-11 10:00 | BH.SGPN.GN ---
Behaviors/Verbalizations/Mental Status: [] Eye contact is good. Motor activity is appropriate. Appearance is casual. Speech within normal limits. Mood is euthymic. Affect is congruent. Thoughts are linear and logical. No evidence of psychosis. Client Response/Progress/Benefit: [] Client was an active participant in group discussion and experiential activity. Attentive during psychoeducation on resilience. Participated in interactive discussion with peers on the definition of resilience and where it comes from. Group identified that resiliency can be impacted by; past experiences, environment, and current mental health state. Group also worked together to identify the benefits of being resilient and how it is related to mental health. Provided a personal experience in which she used resilience to get sober. Able to relate experiential activity of group juggle to topics of resilience. Worked well with peers in small group in which they identified factors that contribute to resilience. Benefited from increased awareness of resilience and the factors that contribute to building resilience. Will continue in IOP to prevent decompensation and further promote mood stability. Narrative Note: []
--- NOTE | 2024-01-11 11:10 | BH.SGPN.GN ---
Behaviors/Verbalizations/Mental Status: [] Client alert and oriented, neatly dressed and groomed. Eye contact good. Motor activity appropriate. Speech within normal limits. Affect congruent, mood euthymic. Thoughts linear, logical, no signs of hallucinations or delusions Client Response/Progress/Benefit: [] Client responded well to session AEB completing the resilience worksheet provided. Client actively participated in the discussion and worked cooperatively with group to identify strategies to enhance each of the components discussed. Client reports belief they already use resilience trait of ?accepting change as a part of living.? ?And ?make connections?. Client discussed that they could work on nurturing a positive view of themselves by working on improving positive self-talk. Client seemed to benefit from discussing strategies for improving personal resilience and identifying resilience traits client already possesses. Will continue IOP tx to increase self-worth and prevent decompensation. Narrative Note: []
--- NOTE | 2024-01-11 15:09 | BH.MDN_ITS ---
Multi-Disciplinary Note Note 30-min Individual: Time Started:: 11:55 Date: 01/11/24 Purpose of session/treatment goals addressed:: Purpose of session to address tx plan goal #1 objs #1 & 2. Eye Contact:: Good Motor Activity:: Appropriate Appearance:: Casual Speech:: Appropriate Mood:: Euthymic Affect:: Congruent Thoughts:: Linear, Logical and No evidence of hallucinations/delusions noted Staff Interventions:: thought challenging, CBT techniques, strengths perspective, goal setting and taught coping skills (accomplishment log) Client Response:: Pt responded well to session, open to meeting with therapist. Pt reported she has overall been doing well the past week since her dizziness has subsided. Shared that her children have been sick this past week so she was not able to attend family Thanksgiving; however, did not allow this to upset her and instead reframed the situation as an opportunity for self-care. Went on to note that since her dizziness has subsided she has felt more willing and able to apply the skills learned in IOP tx. Discussed moving the affirmations from the back of her binder to the front and has started reading them to herself daily. Provided insight that beginning to positive self-talk may be contributing to her improved mood and helped encourage her to take steps towards setting boundaries with her and advocating for her needs. Explained that she brought up several concerns with her and was able to have a heathy conversation without either of them becoming angry or upset. Pt reports discussing a need for more independence and not feeling like she has to tell her everywhere she is throughout the day. Additionally, addressed concerns about his hx of job inconsistency and the pressure this has put on her to be to primary income for the family. Pt reports she also concerns regarding his anger and established a firm boundary that she will leave the marriage again if he falls back into old patterns of behavior, such as throwing things or becoming verbally aggressive. Reflected that she does not want her children to grow up in an unhealthy environment or learn that those behaviors are expected or acceptable. Noted that she was pleasantly surprised by the level of account ability her took and was glad they were able to have the conversation, as she feels they have been interacting more positively as a result. Shared that she wants to continue to work on empowering herself and building confidence. Reviewed several skills to begin to work towards maintaining her boundaries and increasing self-worth. Pt identified goals of saying her affirmations out loud to herself, as well as beginning to give herself credit for the progress she is making by starting an accomplishment log. Risks/Concerns:: No SI or thoughts of as of this date 01/11/24 Progress Toward Goals/Plan:: Progress noted in the past week since medication changes. Pt reports improved functioning and mood. Noted increased desire to apply skills, more hopefulness, and better communication with supports. She is more actively engaged in the individual treatment setting and doing well to begin actively applying calming skills, as well as interventions aimed at improving motivation and self-confidence. Pt continues to struggle with significant negative self-talk, people pleasing tendencies, difficulties maintaining boundaries with supports and more specifically work, as well as variable motivation levels. Pt recommended continued IOP tx to improve consistent skill application, reduce negative self-talk, and improve functioning. Time Stopped:: 12:27
--- NOTE | 2024-02-01 10:10 | BH.SGPN.GN ---
Behaviors/Verbalizations/Mental Status: [] Client alert and oriented, casually dressed and groomed. Eye contact good. Motor activity appropriate. Speech within normal limits. Affect congruent, mood euthymic and anxious. Thoughts linear, logical, no signs of hallucinations or delusions. Client Response/Progress/Benefit: [] Client was an active participant AEB contributing to discussion, taking notes, and engaging in group activity. Connected with the topic of pitfalls and listened to group discussion on barriers that prevent from choosing a healthier path to mental wellness. Group worked together to identify examples of personal pitfalls. Pt identified personal pitfalls to include: negative thinking, not giving self credit, difficulties setting boundaries, negative self-talk. Client benefited from group as client learned to better identify potential barriers to improving mental health symptoms. Client will d/c and continue in outpatient tx to promote continued use of healthy coping skills and prevent decompensation. Narrative Note: []
== END 2024-01-12 23:59 ==
LOC: BHIOP 09:42
PROVIDERS: PCP Internal Medicine; Referring Provider Psychiatry & Neurology Psychiatry; Visit Provider Psychiatry & Neurology Psychiatry
DX: F33.1 Major depressive disorder, recurrent, moderate (principal); F41.1 Generalized anxiety disorder; F43.10 Post-traumatic stress disorder, unspecified; E03.9 Hypothyroidism, unspecified
CPT/HCPCS: S9480; 90832; 90834; 90853

== ENCOUNTER 2024-01-14 07:07 | Outpatient (RCR) | payer MEDICARE, MEDICAID, SELFPAY ==
--- NOTE | 2024-01-14 09:05 | BH.SGPN.GN ---
Behaviors/Verbalizations/Mental Status: [] Pt alert and oriented, casually dressed and groomed. Eye contact good. Motor activity appropriate. Speech within normal limits. Affect congruent, mood content. Thoughts linear, logical, no signs of hallucinations or delusions. Reviewed pt?s symptom tracker, no risk for suicidal ideation, plan, or intent 01/14/24 Client Response/Progress/Benefit: [] Pt was an active participant in group discussions. Attentive. Able to identify mental health wins including successfully hosting her daughter's 5th birthday alliance party without being overwhelmed. Shared she was even able to make amends with her [id number] during the alliance party which was an added bonus. Additional win noted as hearing from her daughter you're becoming my old mommy again which helped to bring attention to pt's progress for herself and motivate her to continue to work on herself. Stressor identified as continuing to get comfortable with saying positive affirmations. Benefited from group support, encouragement, and feedback. Will continue in IOP to prevent decompensation, promote mood stability, and continue to improve use of self-compassion. Narrative Note: []
--- NOTE | 2024-01-14 10:15 | BH.SGPN.GN ---
Behaviors/Verbalizations/Mental Status: [] Client alert and oriented, neatly dressed and groomed. Eye contact good. Motor activity appropriate. Speech within normal limits. Affect congruent, mood euthymic. Thoughts linear, logical, no signs of hallucinations or delusions. Client Response/Progress/Benefit: [] Client was an active participant in group discussions. Attentive during psychoeducation on 4 types of conflict styles (Competing, Collaborating, Avoiding, and Accommodating). Worked with group to define conflict and identify how conflict is helpful. With peers identified barriers to addressing or managing conflict which included:trauma, body language, and cognitive distortions. Client believes they use cooperative style of conflict resolution most of the time. Client shared this style lead them to keep the peace in a lot of circumstances. Benefited from group due to increase insight and awareness of benefits to conflict, conflict styles, and obstacles to managing conflict. Will continue in IOP to prevent decompensation and increase functioning. Narrative Note: []
--- NOTE | 2024-01-14 11:20 | BH.SGPN.GN ---
Behaviors/Verbalizations/Mental Status: [] Client alert and oriented, neatly dressed and groomed. Eye contact good. Motor activity appropriate. Speech within normal limits. Affect congruent, mood euthymic. Thoughts linear, logical, no signs of hallucinations or delusions. Client Response/Progress/Benefit: [] Client engaged in session AEB contributing to discussion and engaging in small group. Attentive during discussion on strategies for more effectively managing conflict in personal life. Client participated in small group for activity and did well collaborating. Client given handout on [employer] with strategies to to communicate effectively in conflict. Client indicated what needs improvement in conflict for them to work on is using I statements. Appeared to benefit from gaining strategies to help client better manage conflict. Will continue IOP tx to reduce negative thinking patterns and increase overall functioning. Narrative Note: []
--- NOTE | 2024-01-16 09:40 | BH.TPR ---
Treatment Plan Review Demographics Date of Admission:: 12/20/23 Date of Treatment Plan Review:: 01/16/24 Admitting Diagnoses:: 1. Major depressive disorder, recurrent, moderate 2. Generalized anxiety disorder 3. PTSD 4. Hypothyroidism 5. Status post gastric bypass and history of iron deficiency anemia 6. Primary support issues Current Diagnoses:: 1. Major depressive disorder, recurrent, moderate 2. Generalized anxiety disorder 3. PTSD 4. Hypothyroidism 5. Status post gastric bypass and history of iron deficiency anemia 6. Primary support issues Patient Status Patient's Response to Treatment:: Pt has responded well to session AEB consistently attending IOP and engaging in both individual and group therapy sessions. Pt consistently completes homework provided from individual counseling now that dizziness issues have subsided. Pt contributes actively during group discussions, takes notes, appears to listen to others, and engages in group activities. Pt's overall DSM-5 scores have decreased by 59% since admission and she reports finding benefit from the coping skills so far. Status of Current Problems and Symptoms: Pt's symptoms have decreased, but still impacting her overall functioning. Pt still reports having moderate-severe symptoms of anxiety and depression more than half of the days in the week. Pt is gaining insight to her negative thought patterns that reinforce depression, fear of failure, and negative self-talk and this has brought up a lot of emotions for pt. Pt is also working on setting boundaries and gaining more self-compassion. Progress Problem #1: Problem Name:: Depression, negative self-talk, guilt Status of Goals:: Objective 1- in progress. Pt?s scores for depression have decreased since admission by 33%. Pt can benefit from reducing these symptoms more. Objective 2- in progress. Pt is working on self-compassion, dialectical thinking, and combatting negative self-talk through use of daily affirmations. Team Recommendations:: Team recommends continued goals and objectives to reinforce skills and reduce symptoms. Team recommends pt continue working on combating distortions, being more self-compassionate, and practicing dialectical thinking. Problem #2: Problem Name:: Anxiety, panic, distress tolerance Status of Goals:: Objective 1- in progress. Pt is working on reducing ruminating thoughts that lower distress tolerance and she is gaining confidence in her ability to ask for help and advocate for her needs. Objective 2- complete with ongoing work encouraged. Pt?s symptoms have only decreased by 33% since admission and she is still reporting moderate anxiety. Team Recommendations:: Treatment team encourages pt to continue working on distress tolerance skills, verbalizing boundaries, grounding skills, and practicing self-care to reduce stress.
--- NOTE | 2024-01-16 10:10 | BH.SGPN.GN ---
Behaviors/Verbalizations/Mental Status: [] Pt alert and oriented, casually dressed and groomed. Eye contact good. Motor activity appropriate. Speech within normal limits. Affect congruent, mood euthymic. Thoughts linear, logical, no signs of hallucinations or delusions. Client Response/Progress/Benefit: [] Pt participated during small group discussions. Attentive during psychoeducation on self-sabotage and the reasons people self-sabotage, and impacts on mental health. Showed engagement during small group discussions and helped group identify different types of self-sabotage. Noted she struggles with procrastinating and people pleasing which results in feeling overwhelmed and burnt out. Seemed to benefit from gaining awareness about the different ways people self-sabotage and identifying their own. Pt to continue IOP tx to prevent decompensation, stabilize mood, increase healthy coping, and improve functioning. Narrative Note: []
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
--- NOTE | 2024-01-16 11:31 | BH.MDN_ITS ---
Multi-Disciplinary Note Note 30-min Individual: Time Started:: 11:30 Date: 01/25/24 Purpose of session/treatment goals addressed:: Purpose of session to address tx plan goal #1 objs #1 & 2. Eye Contact:: Good Motor Activity:: Appropriate Appearance:: Casual Speech:: Appropriate Mood:: Euthymic Affect:: Congruent Thoughts:: Linear, Logical and No evidence of hallucinations/delusions noted Staff Interventions:: motivational interviewing, CBT techniques, discharge planning and goal setting Client Response:: Pt receptive of session, actively engaged throughout. Reports that overall she continues to do well and is feeling more positive than she had several weeks prior. Reports continuing to do well with maintaining her boundaries with her and has been advocating for more consistent self- care opportunities, as well as continued opportunities for independent self- care. Described recently going on a date with her to the [employer] and then attending an AA meeting the following day. Shared that her relationship continues to improve and they are regularly checking-in with one another throughout the week. Improved occupational boundaries as well, discussed challenging herself to say no to taking on an extra shift this week. Noted feeling proud of herself for this and proud that she prioritized her own needs over people pleasing urges. Went on to indicate some ongoing issues with motivation and energy but finds this is beginning to get easier. Pt reports trying to remind herself of the benefits and utilize opposite action to prevent falling back into maladaptive coping patterns. Receptive of discussion on potential d/c and pt noted wanting to complete IOP on 01/31 as she will be busy with the holidays but feels she would benefit from attending tx the next two week to continue to promote mood stability and further improve self-compassion and confidence. Discussed goals to get back into activities she used to enjoy, such as cross-stitching and puzzles. Plans to challenge herself to do one of these activities in the next week. Risks/Concerns:: Client denies current suicidal ideation, plan, or intention to date. Progress Toward Goals/Plan:: Progress noted. Pt reports improved ability to manage her anxiety, reduced panic, and improved mood overall. Indicated doing well to better communicate with her without guilt, which has aided in her improving mood. Pt reports beginning to get back into activities she enjoys and is looking forward to celebrating the holiday with her children. Does continue to struggle with negative self-talk. Pt recommended continued IOP tx to maintain gains and prevent decompensation. Pt has additionally been connected with individual outpatient counseling through [facility]. Time Stopped:: 12:00
--- NOTE | 2024-01-18 09:05 | BH.SGPN.GN ---
Behaviors/Verbalizations/Mental Status: []Pt alert and oriented, neatly dressed and groomed. Eye contact good. Motor activity appropriate. Speech within normal limits. Affect congruent, mood calm. Thoughts linear, logical, no signs of hallucinations or delusions. Reviewed pt?s symptom tracker, no risk for suicidal ideation, plan, or intent 01/18/24 Client Response/Progress/Benefit: []Pt was an active participant in group discussions. Attentive. Able to identify mental health wins including getting her outpatient mental health providers scheduled and making it through a day of work without blowing up. Pt's stressor today is she was running late this morning which always triggers some anxiety, but pt feels she is coping well. Pt stated she is feeling hopeful this morning. Pt receptive to feedback from peers which pt reported was helpful. Progress noted. Benefited from group support, encouragement, and feedback. Will continue in IOP to promote mood stability, increase distress tolerance skills, and improve self-compassion. Narrative Note: []
--- NOTE | 2024-01-18 10:10 | BH.SGPN.GN ---
Behaviors/Verbalizations/Mental Status: [] Eye contact is good. Motor activity is appropriate. Appearance is casual. Speech is Appropriate. Mood is depressed. Affect is congruent. Thoughts are linear and logical. No evidence of psychosis Client Response/Progress/Benefit: [] Pt responded well to session AEB contributing to small group discussion, taking notes, and listening attentively to others. Group defined anger and discussed the benefits of managed anger (advocating for self, getting needs met, catalyst for change). Worked with peers in small groups to identify common anger triggers as well as emotions which lay underneath anger or 'drive anger such as; helplessness, fear, guilt, anxiety, grief, shame, and jealously. Appeared to benefit from increased knowledge of the anger cycle as well as personal triggers. Will continue IOP to prevent decompensation, increase healthy coping, and improve functioning. Narrative Note: []
--- NOTE | 2024-01-18 11:15 | BH.SGPN.GN ---
Behaviors/Verbalizations/Mental Status: []Client alert and oriented, casually dressed and groomed. Eye contact good. Motor activity appropriate. Speech within normal limits. Affect congruent, mood euthymic. Thoughts linear, logical, no signs of hallucinations or delusions. Client Response/Progress/Benefit: []Pt was engaged throughout AEB contributing to group discussion and activity. Group processed how they each responded to the intentionally difficult task they were asked to completed and described the physical and emotional anger cues experienced throughout, as well as strategies used for managing these frustrations. Pt contributed as group brainstormed healthy coping skills for better managing anger which included: music, walking/exercise, taking a break, healthy venting, avoiding unnecessary stressors, reflection, and journaling. Pt cooperative with working in small groups to identify what strategy wants to work on to help interrupt personal anger cycle. Pt to continue IOP to increase consistent use of healthy coping skills, improve confidence, and prevent decompensation.
--- NOTE | 2024-01-22 09:05 | BH.SGPN.GN ---
Behaviors/Verbalizations/Mental Status: [] Eye contact is good. Motor activity is appropriate. Appearance is casual. Speech is Appropriate. Mood is depressed. Affect is congruent. Thoughts are linear and logical. No evidence of psychosis. Reviewed daily check in sheet and no reports of suicidal ideations or intent. Client Response/Progress/Benefit: [] Pt participated at times during the group discussion. Attentive. Daily symptom tracker notes 02/16 for depression, anxiety, and irritability. Shared with the group an example of using thought reframing and opposite action over the weekend. She was also able to follow through with an anxiety producing situation. Also shared that she ?started? with a new counseling yesterday as she is getting close to discharge from IOP. ?It went well. I liked her?. Discussed recent situational stressors however she is working though them. She also noted improved relationship and communication with her . Benefited from group support, encouragement, and feedback. Will continue in IOP to prevent decompensation, increase healthy coping, and improve functioning. Narrative Note: []
--- NOTE | 2024-01-22 10:15 | BH.SGPN.GN ---
Behaviors/Verbalizations/Mental Status: []Pt alert and oriented, neatly dressed and groomed. Eye contact good. Motor activity appropriate. Speech within normal limits. Affect congruent, mood euthymic. Thoughts linear, logical, no signs of hallucinations or delusions. Client Response/Progress/Benefit: [] Pt engaged and actively participating in discussion, taking notes. Pt attentive during psychoeducation about the window of tolerance and noted personal connections. Group identified what contributes to low distress tolerance. The group gained awareness of the three zones of tolerance and pt was able to identify what they look like in each zone. Pt noted that in the hyperarousal zone pt ?picks fights? and is a ?workaholic?, but when she is in the window of tolerance, she feels productive, engaged, and is a problem-solver. Pt appeared to benefit from psychoeducation on distress tolerance and practicing self-reflection. Pt will continue IOP tx to promote mood stability, increase self-compassion, and reinforce healthy coping skills. Narrative Note: []
--- NOTE | 2024-01-22 11:20 | BH.SGPN.GN ---
Behaviors/Verbalizations/Mental Status: []Pt alert and oriented, casually dressed and groomed. Eye contact good. Motor activity appropriate. Speech within normal limits. Affect congruent, mood content. Thoughts linear, logical, no signs of hallucinations or delusions. Client Response/Progress/Benefit: [] Pt responded well to session AEB taking notes and contributing to discussion throughout. Pt engaged as group continued discussion on distress tolerance and the mental health benefits of widening their overall Window of Tolerance. Pt engaged with group in experiential activity provided input on connections between variables in the activity and distress tolerance. Worked within small groups to identify strategies to increase distress tolerance and reduce hyper-arousal and hypo-arousal states. Identified wanting to begin implementing distress tolerance skills of: belly breathing, grounding, and setting small goals. Pt appeared to benefit from gaining insight and learning strategies to increase distress tolerance. Pt will continue IOP tx to promote use of healthy coping skills, challenge negative self-talk, and prevent decompensation. Narrative Note: []
--- NOTE | 2024-01-25 09:00 | BH.SGPN.GN ---
Behaviors/Verbalizations/Mental Status: [] Eye contact is good. Motor activity is appropriate. Appearance is casual. Speech is Appropriate. Mood is anxious. Affect is congruent. Thoughts are linear and logical. No evidence of psychosis. Reviewed daily check in sheet and no reports of suicidal ideations or intent. Client Response/Progress/Benefit: [] Pt participated at times during the group discussion. Attentive. Daily symptom tracker notes 02/16 for anxiety depression, and irritability. I had some very tough days at work. Elaborated on the stressors and how they impact her mental health. I made it through. She is setting boundaries with work and home demands which she feels had made her more calm. Reframing and challenging thoughts and expectations. Acceptance of the need for self-care and saying no which has improved mental health functioning. She has an upcoming anxiety producing event however has developed anxiety strategies to help her through. Scott noted. Beneifted from group support, encouragement, and feedback. Will continue in IOP to prevent decompensation, increase healthy coping, and improve functioning. Narrative Note: []
--- NOTE | 2024-01-25 10:05 | BH.SGPN.GN ---
Behaviors/Verbalizations/Mental Status: []Pt alert and oriented, casually dressed and groomed. Eye contact good. Motor activity appropriate. Speech within normal limits. Affect congruent, mood euthymic. Thoughts linear, logical, no signs of hallucinations or delusions. Client Response/Progress/Benefit: [] Pt responded well to session, attentive and engaged. Group participated in the discussion defining stigma as well as what stigma has kept pt's from doing in their lives. Pt stated mental health stigma has led pt to not get help and minimize her symptoms. Pt worked with peers to begin discussion of what reinforces stigma, both socially and internally, and this was discussed further in the next group. Pt appeared to benefit from learning about the different types of stigma as well as gaining awareness of how stigma has personally impacted pt. Pt will continue IOP tx to promote the use of healthy coping skills, reinforce mood stability, and increase self-confidence. Narrative Note: []
--- NOTE | 2024-01-25 11:05 | BH.SGPN.GN ---
Behaviors/Verbalizations/Mental Status: []Pt alert and oriented, casually dressed and groomed. Eye contact good. Motor activity appropriate. Speech within normal limits. Affect congruent, mood euthymic. Thoughts linear, logical, no signs of hallucinations or delusions. Client Response/Progress/Benefit: [] Pt engaged participant AEB participating in the activity, providing input during small group discussion, and listening attentively to others. Pt appeared to connect with discussion in the benefits of addressing mental health stigma which included: improved relationships, increased willingness to seek help, increased happiness, and improved confidence. Group brainstormed strategies to combat social and perceived stigma. Pt identified that they can contribute to stigma by shutting down and not advocating for themselves.?Pt shared one thing pt can do to combat stigma is in the next week she is going to sit down with her and share what she has learned while in IOP and how she is planning to work on what she has been taught. Appeared to benefit from increasing awareness of strategies to combat stigma. Pt is to continue IOP to continue use of healthy coping skills, improve confidence, and prevent decompensation.
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
--- NOTE | 2024-01-29 10:10 | BH.SGPN.GN ---
Behaviors/Verbalizations/Mental Status: []Pt alert and oriented, casually dressed and groomed. Eye contact good. Motor activity appropriate. Speech within normal limits. Affect congruent, mood depressed and anxious. Thoughts linear, logical, no signs of hallucinations or delusions. Client Response/Progress/Benefit: [] Pt was an active?participant in small group discussion. Pt?s group worked together to identify benefits of healthy relationships which included insight, accountability, and guidance. Group identified factors that lead to unhealthy relationships. Pt?s personal factors included past substance use, prior experiences, and poor boundaries. Actively participated in group experiential activity and expressed ideas to group. Benefited from increased insight and awareness of benefits of healthy relationships and factors that contribute to unhealthy relationships. Will continue IOP tx to promote mood stability, increase self-compassion, and improve daily functioning. Narrative Note: []
--- NOTE | 2024-01-29 11:10 | BH.SGPN.GN ---
Behaviors/Verbalizations/Mental Status: [] Pt alert and oriented, casually dressed and groomed. Eye contact good. Motor activity appropriate. Speech within normal limits. Affect congruent, mood euthymic, Thoughts linear, logical, no signs of hallucinations or delusions. Client Response/Progress/Benefit: [] Client responded well to session, engaged and taking notes throughout. Worked with group to connect components of the experiential activity with characteristics of healthy and unhealthy relationships. Attentive during psychoeducation about characteristics of healthy, unhealthy, and abusive relationships. Client reported she would like to work on communication by talking to her at least two times a week about how she is feeling. Appeared to benefit from identifying current healthy relationship attributes and an area client wants to work on to build healthier relationships. Client to continue IOP to continue use of healthy coping skills, challenge negative thoughts, and prevent decompensation.
--- NOTE | 2024-02-01 09:00 | BH.SGPN.GN ---
Behaviors/Verbalizations/Mental Status: [] Eye contact is good. Motor activity is appropriate. Appearance is casual. Speech is Appropriate. Mood is euthymic. Affect is full. Thoughts are linear and logical. No evidence of psychosis. Reviewed daily check in sheet and no reports of suicidal ideations or intent. Client Response/Progress/Benefit: [] Pt was an active participant in group discussions. Attentive. Daily symptom trackers shows no significant distress. Shared with the group that today is her last day in [facility] as she is set to discharge successfully. Since last visit followed through with public speaking, which she reported was a significant accomplishment. ? I?ve been making it through some rough days?. She is apprehensive about discharge however reports ?feeling better about myself? since starting [facility]. Shared her aftercare plans. Benefited from group support and encouragement. Will be discharged from [facility] successfully today Narrative Note: []
--- NOTE | 2024-02-01 09:42 | BH.MDN ---
Multi-Disciplinary Note Note 30-min Individual: Time Started:: 08:40 Date: 02/01/24 Purpose of session/treatment goals addressed:: Purpose of session was to identify treatment progress, complete maintenance plan, and solidify aftercare plans. Eye Contact:: Good Motor Activity:: Appropriate Appearance:: Casual Speech:: Appropriate Mood:: Euthymic Affect:: Bright and Congruent Thoughts:: Linear, Logical and No evidence of hallucinations/delusions noted Staff Interventions:: motivational interviewing, discharge planning, strengths perspective, reviewed DSM-5 and other (reviewed progress and maintenance plan) Client Response:: Client reported feeling nervous, but accomplished and proud to be successfully discharging from [facility]. Reflected on struggling to initially feel comfortable in group and hesitant about the group environment when first starting but is now actively sharing with fellow group members and excited to come to group . Stated she is nervous to not have the group support but feels ready to drop down to individual counseling and attend the aftercare program after the holidays. Shared that in the last few weeks she has been taking time to reflect more on what she wants and needs to maintain the progress that she has made. Reports plans to remain on a 2 day a week schedule with work in order to give her more time with her kids, for self-care, and to continue to be an active part of AA. Client went on to review overall treatment progress, identifying improved mood, improved use of healthy coping skills to manage anxiety and irritability triggers, improved boundary setting, and increased confidence and self-compassion. Client stated she also is starting to accept that she is allowed to advocate for her needs with her and is not responsible for making sure his needs are met before her own. Reports that she has ongoing stressors but the majority of these are healthy positive things in her life. Client worked with therapist to complete maintenance plan in which she identified potential triggers, warning signs, self-care activities, and healthy coping skills/strategies. Client stated she does feel more ready to discharge from program and knows she has more skills to manage mental health symptoms. Risks/Concerns:: Denies suicidal ideation, plan, or intention to date. future oriented. Progress Toward Goals/Plan:: Client has made progress with improved mood, improved use of healthy coping skills to manage anxiety and depression, improved self-compassion, and healthier communication with supports. Client has also been able to manage various stressors she's been faced with while in the program. Client still struggles with anxiety and self-doubt at times, but has started to use grounding and self-talk to manage these. Client's DSM 5 cross-cutting measure scores at discharge show a decrease in her mental health symptom of 90%. Client's depression decreased by 67%, anxiety decreased by 87%, irritability by 100%, and suicidal ideation decreased by 100%. Client responded well to IOP AEB consistent IOP attendance, often providing input during group sessions, and engaging in individual therapy .Client is established and will follow up with [facility] for both psychiatry and outpatient counseling services. Pt reports she has appointments 02/07/24 for outpatient counseling and follow-up with psychiatry in March. Time Stopped:: 09:06
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
--- NOTE | 2024-02-01 11:10 | BH.SGPN.GN ---
Behaviors/Verbalizations/Mental Status: []Client alert and oriented, casually dressed and groomed. Eye contact good. Motor activity appropriate. Speech within normal limits. Affect congruent, mood euthymic. Thoughts linear, logical, no signs of hallucinations or delusions. Client Response/Progress/Benefit: [] Pt receptive of session, engaged throughout AEB Pt actively listening and contributing to discussion as well as taking notes.? Pt participated in the experiential activity and did well to communicate ideas with peers and manage emotions. Pt attentive as group processed how the emotions and perspective of the group impacted the activity. Group worked together to identify different coping skills to help manage pitfalls. Pt identified a pitfall they struggle with as not acknowledging progress and not sticking to boundaries. Pt plans to work on their pitfall by continuing to practice affirmations. Benefited from identifying personal pitfalls and strategies to overcome these pitfalls. Pt will discharge from IOP as she has accomplished her tx goals and no longer meets criteria for IOP level of care. Narrative Note: []
== END 2024-02-01 12:42 | disposition home or self-care (01) ==
LOC: BHIOP 07:07
PROVIDERS: PCP Internal Medicine; Referring Provider Psychiatry & Neurology Psychiatry; Visit Provider Psychiatry & Neurology Psychiatry
DX: F33.1 Major depressive disorder, recurrent, moderate (principal); F41.1 Generalized anxiety disorder; F43.10 Post-traumatic stress disorder, unspecified; E03.9 Hypothyroidism, unspecified; Z98.84 Bariatric surgery status
CPT/HCPCS: S9480; 90832; 90853

== ENCOUNTER 2024-02-21 12:00 | Outpatient (RCR) | payer MEDICARE, MEDICAID, SELFPAY ==
--- NOTE | 2024-02-21 14:00 | BH.SGPN.GN ---
Behaviors/Verbalizations/Mental Status: []Pt alert and oriented, casually dressed and groomed. Eye contact good. Motor activity appropriate. Speech within normal limits. Affect congruent, mood anxious. Thoughts linear, logical, no signs of hallucinations or delusions. Client Response/Progress/Benefit: []Pt responded well to session AEB sharing and listening attentively to others. Pt has scheduled outpatient mental health appointments for weekly counseling and med management early next month and reports consistent medication compliance. Pt reports using skills of healthy distraction, opposite action, and boundaries maintain mood stability. Pt participated in group discussion defining affirmations and why they are important. Pt provided insight throughout clinician?s presentation of tips for writing personal affirmations and wrote their own affirmations, including ?I am capable of setting boundaries and am proud of doing so?, ?I deserve to ask for help and have the right to receive it? and ?I have the right to take time for myself?. Pt appeared to benefit from increased knowledge of affirmation writing skills and creating their own affirmation statements to remind themselves of outside tx environment. Will continue aftercare tx to promote consistent mental health maintenance and prevent decompensation. Narrative Note: []
--- NOTE | 2024-02-21 14:00 | BH.COMM ---
Communication Note Communication with Client Communication Note: Patient completed IOP and presents today to start relapse prevention group which meets once weekly (1.5 hours) for 8 weeks. Case discussed with Dr. Dong with plan to admit with dx of F33.1
--- NOTE | 2024-03-13 14:00 | BH.SGPN.GN ---
Behaviors/Verbalizations/Mental Status: []Pt alert and oriented, neatly dressed and groomed. Eye contact good. Motor activity appropriate. Speech within normal limits. Affect congruent, mood euthymic and anxious. Thoughts linear, logical, no signs of hallucinations or delusions. Client Response/Progress/Benefit: []Pt responded well to session, completed their self-reflection worksheet. Pt noted they have not met with their therapist but they have been taking their medications consistently since last session. Pt noted they used coping skills like giving herself credit, deep breathing, asking for help, and meditation. Pt also noted they completed last weeks homework and found it helpful. Pt engaged well during the discussion of the components of self-compassion. Pt connected with the benefits of self-compassion and participated in the activity of reframing a recent setback using self-compassion. Pt used self-compassion to combat negative self-talk and assisted peers in identifying examples of the three components of self-compassion.?Pt appeared to benefit from practicing self-compassion and connecting with peers. Will continue aftercare to promote mood stability and reinforce healthy coping skills.? Narrative Note: []
== END 2024-03-14 23:59 ==
LOC: BHOG 12:00
PROVIDERS: PCP Internal Medicine; Referring Provider Psychiatry & Neurology Psychiatry; Visit Provider Psychiatry & Neurology Psychiatry
DX: F33.1 Major depressive disorder, recurrent, moderate (principal)
CPT/HCPCS: 90853

== ENCOUNTER 2024-03-15 15:07 | Outpatient (RCR) | payer MEDICARE, MEDICAID, SELFPAY ==
--- NOTE | 2024-03-20 13:40 | BH.TPR ---
Treatment Plan Review Demographics Date of Admission:: 02/21/24 Date of Treatment Plan Review:: 03/20/24 Admitting Diagnoses:: 1. Major depressive disorder, recurrent, moderate 2. Generalized anxiety disorder 3. PTSD 4. Hypothyroidism 5. Status post gastric bypass and history of iron deficiency anemia 6. Primary support issues Current Diagnoses:: 1. Major depressive disorder, recurrent, moderate 2. Generalized anxiety disorder 3. PTSD 4. Hypothyroidism 5. Status post gastric bypass and history of iron deficiency anemia 6. Primary support issues Patient Status Patient's Response to Treatment:: Pt continues to respond well to treatment AEB pt's consistent attendance, ongoing attentiveness and engagement in group discussions, and continued reporting use of skills outside treatment environment. Status of Current Problems and Symptoms: Pt reports ongoing anxiety and depressive symptoms that have decreased in intensity, but are still present. Pt has been experiencing increased stress with work and her relationship issues and this worsened pt's mental health symptoms, leading to irritability and anxiety. Pt reports she is beginning to feel better, but she still has days she struggles. Progress Problem #1: Problem Name:: Pt will maintain or see a reduction in sx Status of Goals:: Obj 1 - Complete with maintenance encouraged. Pt's depression and anxiety are decreased per pt report compared to IOP admission. Obj 2 - complete with ongoing work encouraged. Pt has been reporting using opposite action, self-compassion, advocating for her needs, communicating and maintaining boundaries, and deep breathing. Pt is also working on being more social. Team Recommendations:: Recommended client continue IOP aftercare group in addition to attending regular outpatient counseling in order to maintain gains. Pt also recommended to continue working on self-advocacy, practice self-care, and setting realistic goals.
--- NOTE | 2024-03-27 14:00 | BH.SGPN.GN ---
Behaviors/Verbalizations/Mental Status: []Client alert and oriented, casually dressed and groomed. Eye contact good. Motor activity appropriate. Speech within normal limits. Affect congruent, mood content and tired. Thoughts linear, logical, no signs of hallucinations or delusions. Client Response/Progress/Benefit: []Pt responded well to session AEB sharing and listening attentively to others. Pt followed up with all mental health appointments this week and pt is taking medications regularly. Pt stated self-care, boundary maintenance, thought challenging, and self-compassion skills as pt?s primary coping skills this week. Pt participated in group discussion defining vulnerability, how and why we avoid it, and the benefits. Pt was an active participant and provided personal examples of being vulnerable and the positive things that came with this. Pt stated that she would like to practice vulnerability this week by being a guest on her friend's podcast to discuss her recovery story. Will continue aftercare treatment to reinforce healthy coping skills and promote gains. Narrative Note: []
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
== END 2024-04-11 07:22 | disposition home or self-care (01) ==
LOC: BHOG 15:07
PROVIDERS: PCP Internal Medicine; Referring Provider Psychiatry & Neurology Psychiatry; Visit Provider Psychiatry & Neurology Psychiatry
DX: F32.A Depression, unspecified (principal); F41.9 Anxiety disorder, unspecified
CPT/HCPCS: 90853